=== PATIENT | female | born 1955 | race Caucasian/White ===

== ENCOUNTER 2017-09-08 21:40 | Inpatient (IN) ==
[2017-09-08] MEDS ORDERED: Cefepime HCl 2,000 MG in Water for inj. (sterile) 20 ML IVP ONE (22:07)
[2017-09-08] MEDS ORDERED: Levofloxacin 750 MG/150 ML 750 MG/150 ML BAG IVPB ONE (22:11)
[2017-09-08] MEDS ORDERED: Vancomycin (wt based) 1,000 MG VIAL IVPB ONE (22:11)
[2017-09-08] MEDS ORDERED: *HR* LORazepam 2 MG/ML VIAL IVP ONE ×2 (22:24→23:56)
[2017-09-08 22:25] LABS: Basophils % 0.2 %; Eosinophils # 0.1 K/mcL (0.0-0.6); Eosinophils % 0.5 %; Hematocrit 31.6 % (35.3-44.9); Hemoglobin 10.5 g/dL (11.5-15.4); Immature Granulocytes % 0.4 % (0-4); Lymphocytes # 1.3 K/mcL (0.6-4.6); Lymphocytes % 12.4 %; Mean Corpuscular HGB Conc 33.2 g/dL (31.6-35.5); Mean Corpuscular Hemoglobin 29.9 pg (28.0-33.3); Monocytes # 0.8 K/mcL (0.0-1.3); Monocytes % 7.2 %; Neutrophils # 8.4 K/mcL (1.6-8.9); Platelet Count 253 K/mcL (140-400); Red Blood Count 3.51 M/mcL (3.82-4.97); Red Cell Distribution Width 13.4 % (11.5-14.5); Segmented Neutrophils % 79.3 %
[2017-09-08 22:31] LABS: INR 1.1; Prothrombin Time 12.1 Seconds (9.4-12.1)
[2017-09-08 22:33] LABS: Activated Partial Thrombo Time 27.4 Seconds (26.0-36.0)
[2017-09-08 22:43] LABS: BUN/Creatinine Ratio 33 (6-26); Blood Urea Nitrogen 13 mg/dL (8-23); Calcium 8.7 mg/dL (8.6-10.3); Carbon Dioxide 26 mEq/L (23-29); Chloride 92 mEq/L (98-107); Glucose 129 mg/dL (70-105); Osmolality,Calculated 264 (280-300); Potassium 3.9 mEq/L (3.5-5.1); Sodium 126 mEq/L (136-145); eGFR For African Americans > 60 (> 60); eGFR For Non-African Americans > 60 (> 60)
[2017-09-08 22:44] LABS: Albumin 3.2 g/dL (3.5-5.7); Bilirubin,Direct 0.1 mg/dL (0.0-0.2); Bilirubin,Indirect 0.4 mg/dL (0.0-1.2); Bilirubin,Total 0.5 mg/dL (0.3-1.0); Globulin 3.3 g/dL (2.4-3.5); Total Protein 6.5 g/dL (6.4-8.9)
[2017-09-08 23:14] LABS: ABG Base Excess 1 mEq/L (-2 to 3); ABG HCO3 25 mEq/L (21-27); ABG Oxygen Saturation 96 % (95-98); ABG PCO2 38 mmHg (35-45); ABG PH 7.43 pH Units (7.32-7.45); ABG PO2 82 mmHg (85-104); ABG TCO2 26 mEq/L (20-26)
--- NOTE | 2017-09-08 23:14 | Emergency Department Note ---
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 She is currently getting chemotherapy and radiation. She sees oncology regularly. She recently had some tests done and they are still waiting for the results of those. Patient states she has been short of breath for about the last week and has had a worsening over the past few days. Today though she says she was having a real hard time breathing so they called the squad her oxygen saturations were at 80% . At this time he decided to start her on oxygen they gave her 4 L nasal cannula when she did bump up to 90%. Patient states she has had 7 heart time breathing otherwise having no complaints. She has no headaches, blurry vision, chest pain, lightheadedness, vision changes, neck pain, back pain, abdominal pain, pain with urination, change in bowel movements, pain or tingling going down the arms or legs or any generalized weakness. - Related Data Home Medications Medication Instructions Recorded Confirmed Albuterol Sulfate [Albuterol 2 puff IH Q4HR PRN 07/02/17 09/08/17 Inhaler] Aspirin [Ecotrin] 325 mg PO DAILY 07/02/17 09/08/17 Atorvastatin Calcium 80 mg PO HS 07/02/17 09/08/17 Escitalopram [Lexapro] 10 mg PO DAILY 07/02/17 09/08/17 Montelukast [Singulair] 10 mg PO DAILY 07/02/17 09/08/17 Zolpidem Tartrate 5 mg PO HS PRN 07/02/17 09/08/17 amLODIPine [Norvasc] 5 mg PO DAILY 07/02/17 09/08/17 Acetaminophen [Tylenol] 1,000 mg PO Q6HR 09/08/17 09/08/17 Guaifenesin [Robafen] 100 mg PO 09/08/17 Loratadine [Allergy Relief] 10 mg PO 09/08/17 Ondansetron [Zofran] 8 mg PO Q8HR 09/08/17 09/08/17 Potassium Chloride Elixir 40 meq GTUBE DAILY 09/08/17 09/08/17 [Potassium Chloride] Prochlorperazine Maleate 10 mg PO Q8HR 09/08/17 09/08/17 [Compazine] Previous Rx's Medication Instructions Recorded Fluticasone/Salmeterol [Advair Hfa 2 puff IH BID PRN #1 inh 09/08/17 45-21 Mcg Inhaler] Glycopyrrolate [Robinul] 1 mg PO BID #60 tablet 09/08/17 Zolpidem Tartrate [Ambien Cr] 12.5 mg PO HS PRN #30 tab.mphase 09/08/17 Allergies Allergy/AdvReac Type Severity Reaction Status Date / Time Penicillins Allergy Rash Verified 09/08/17 21:42 Sulfa (Sulfonamide Allergy Rash Verified 09/08/17 21:42 Antibiotics) Review of Systems: 10 point review of systems done and negative unless otherwise stated in history of present illness. All systems ED: reviewed and negative except as stated. Review of Systems: As Per HPI Past Medical History - Past Medical History Attestation: Yes The following information was validated with the patient. Medical history: Reports: cancer, CVA, hypertension Surgical history: Reports: other Psychiatric history: Reports: no psych history - Social History Smoking Status: Former smoker Smokeless Tobacco Status: No Alcohol use: Reports: none Drug use: Reports: none Physical Exam - General Limitations: no limitations General appearance: alert - Head Head exam: atraumatic, normocephalic, normal inspection - Eye Eye exam: Present: normal appearance, PERRL, EOMI - ENT ENT exam: normal exam, normal oropharynx, mucous membranes moist - Neck Neck exam: Present: normal inspection, full ROM, trachea midline - Chest Chest inspection: Present: normal inspection, symmetric chest wall rise - Respiratory Respiratory exam: Present: respiratory distress, wheezes, accessory muscle use - Expanded Respiratory Exam Location: rales: Left, Right, Upper, Lower - Cardiovascular Cardiovascular exam: Present: regular rate, normal rhythm, normal heart sounds - Abdominal Exam Abdominal exam: Present: soft, Non-Tender. Absent: tenderness, distention, guarding, rebound, rigidity - Extremities Exam Extremities exam: Present: normal inspection, full ROM. Absent: tenderness, pedal edema - Expanded Lower Extremity Exam Neurovascular/Tendon exam: Absent: motor deficit, sensory deficit, tendon deficit - Back Exam Back exam: Present: normal inspection, full ROM. Absent: tenderness - Neurological Exam Neurological exam: Present: alert, oriented X3 - Skin Skin exam: Present: warm, dry, intact, normal color Course Course Narrative: 62-year-old female presents to the emergency department complaining of shortness of breath. She has had a cancer history. She also has a risk for aspiration due to the tumors. Due to this. Start patient on broad-spectrum antibiotics for possible aspiration pneumonia. We will also do basic labs include a CBC, BMP, troponin. We will also get chest x-ray and a CT Angio of her chest as long as creatinine function is normal. Will start patient on BiPAP as she is in quite a bit respiratory distress this will help with her oxygenation saturations as well. Most likely disposition will be admission for further evaluation. Vital Signs Temperature 98.8 F 09/08/17 21:43 Pulse Rate 121 09/08/17 21:43 Respiratory Rate 34 09/08/17 21:43 Blood Pressure 149/84 09/08/17 21:43 O2 Sat by Pulse Oximetry 88 09/08/17 21:43 Temperature 98.8 F 09/09/17 02:07 Pulse Rate 102 09/09/17 02:07 Respiratory Rate 12 09/09/17 02:07 Blood Pressure 102/57 09/09/17 02:07 O2 Sat by Pulse Oximetry 95 09/09/17 02:07 Oxygen Delivery Oxygen Delivery Ventilator Procedures - Intubation Time out performed: Yes sedative: Ketamine Mg Given: 50 paralytic: Succinylcholine Mg Given: 50 Laryngoscope: fiber optic video scope ET Tube Size: 7 ET Tube Uncuffed: No Tube Secured Depth (cm): 20 Tube Secured Location: teeth Tube Placement Confirmation: visualized tube passing through cords, equal breath sounds bilaterally, no breath sounds over epigastrium, confirmation by capnometry Patient Tolerated Procedure: well, no complications Intubation Complications: none, difficult intubation (Patient has tumors of the soft palate as well as esophageal tumors.) Shortness of Breath/Dyspnea - [facility] Narrative Medical decision making narrative: 62-year-old female presented to the emergency department for shortness of breath as well as hypoxia. Sats were down to 80% via EMS. When patient presented here were no she was in respiratory distress we merely put her on BiPAP. Patient did respond well to this as she went up to 93-94% while on BiPAP patient was very anxious while on BiPAP. Give her 0.5 mg of Ativan twice through her IV. Patient does have a history of esophageal cancer as well as small palate tumors. Patient still is a full code. Patient is not currently getting radiation and chemotherapy as they are doing testing at this time but recently finish it up. She does see oncology here. We give patient triple DuoNeb treatment which did help with her breathing. All labs came back with no abnormalities. ABG was normal after being on BiPAP. All labs came BACK NORMAL THE CT ANGIOGRAM OF HER CHEST DUE TO POSSIBLY FOR PULMONARY AND WAS NOT DUE TO MALIGNANCY WELL ANY OTHER PULMONARY ETIOLOGY. CTA CAME BACK SHOWING POSSIBLE ASPIRATION PNEUMONIA IN THE LEFT LOWER LOBE. THERE WAS NO PE EVIDENT. DUE to this we started aspiration pneumonia treatment which included cefepime due to there being a penicillin allergy, Levaquin as well as vancomycin. Patient tolerated these well. She was stable at this time. After coming back from CT angios she did have a little bit more difficult time breathing as we had to take her off BiPAP. Back on BiPAP she did become hypoxic at around 84% while on the BiPAP and she was not tolerating it well. Due to this we felt that patient would need an abated. I spoke with the at bedside and he agreed that this probably was our best course of action. was tearful during this talk as he was worried he did not know what else he could do. I explained this is per the best course of treatment and and she would be going to the ICU and gave great care there. The intubation was done by myself under the supervision of Dr. Domínguez. I used medial laryngoscopy as this most likely was to be a very difficult airway due to tumors in the oropharynx. A 7.0 tube was used with a rigid stylet was successfully done as a passed through the cords. We used ketamine and succinylcholine during it. I then proceeded to use Precedex or post intubation sedation. After the first dose of ketamine wore off. Give a second 50 mg dose of ketamine. In order to last until her Precedex started working we gave patient Versed as well as Jose Smithey him to keep her sedated and paralyzed. Patient tolerated it well. Patient's blood pressure tolerated the whole procedure well she was then placed on mechanical ventilation and did well with that. Patient does have a port so we did not need to place any central lines. I spoke with the hospitalist Dr. Lozano agreed to admit the patient to the ICU. Patient was admitted in stable condition while on the mechanical ventilator. Chest CTA 09/08/17 23:09 IMPRESSION: There is motion degradation, which limits evaluation of the subsegmental pulmonary arteries, especially the lower lungs. No central or segmental pulmonary embolism is detected. Consolidation, mainly within left lower lobe, but with patchy consolidation also identified within left upper lobe. Given the location, correlate with clinical evidence of aspiration. Large bulky mural thickening involving the upper esophagus, compatible with the patient's known history of esophageal carcinoma. Evidence of free intraperitoneal air. Again, that was present dating back to August 26. Correlate with any history of intra-abdominal surgery. A perforated viscus remains a consideration. Cholelithiasis, incompletely evaluated. Findings were discussed with Billy Duran at 12:10 am on 09/08/2017. D/ / Adam Balderas MD / Adam Balderas MD Interpreting Provider: Adam Balderas MD Chest X-Ray 09/09/17 00:49 IMPRESSION: Appropriate endotracheal tube positioning. No pneumothorax. Decreased pneumoperitoneum. Persistent basilar airspace disease. D/ / Toni Mcintosh / Toni Mcintosh Interpreting Provider: Toni Mcintosh - Medical Records Medical records reviewed: Yes I reviewed the patient's medical records. - Lab Data Lab results reviewed: Yes I reviewed the patient's lab results. Result diagrams: 09/08/17 22:12 09/08/17 22:12 Lab Results 09/08/17 09/08/17 09/08/17 Range/Units 22:12 22:12 22:12 WBC 10.5 (4.3-11.1) K/mcL RBC 3.51 L (3.82-4.97) M/mcL Hgb 10.5 L (11.5-15.4) g/dL Hct 31.6 L (35.3-44.9) % MCV 90.0 (83.0-100.0) fL MCH 29.9 (28.0-33.3) pg MCHC 33.2 (31.6-35.5) g/dL RDW 13.4 (11.5-14.5) % Plt Count 253 (140-400) K/mcL MPV 10.0 (9.4-12.4) fL Immature Gran % 0.4 (0-4) % Seg Neutrophils % 79.3 % Lymphocytes % 12.4 % Monocytes % 7.2 % Eosinophils % 0.5 % Basophils % 0.2 % Neutrophils # 8.4 (1.6-8.9) K/mcL Lymphocytes # 1.3 (0.6-4.6) K/mcL Monocytes # 0.8 (0.0-1.3) K/mcL Eosinophils # 0.1 (0.0-0.6) K/mcL Basophils # 0.0 (0.0-0.2) K/mcL PT (9.4-12.1) Seconds INR APTT (26.0-36.0) Seconds ABG pH (7.32-7.45) pH Units ABG pCO2 (35-45) mmHg ABG pO2 (85-104) mmHg ABG HCO3 (21-27) mEq/L ABG Total CO2 (20-26) mEq/L ABG O2 Saturation (95-98) % ABG Base Excess (-2 to 3) mEq/L Sodium 126 L (136-145) mEq/L Potassium 3.9 (3.5-5.1) mEq/L Chloride 92 L (98-107) mEq/L Carbon Dioxide 26 (23-29) mEq/L BUN 13 (8-23) mg/dL Creatinine 0.39 L (0.60-1.20) mg/dL Est GFR ( Amer) > 60 (> 60) Est GFR (Non-Af Amer) > 60 (> 60) BUN/Creatinine Ratio 33 H (6-26) Glucose 129 H (70-105) mg/dL Calculated Osmolality 264 L (280-300) Lactic Acid (0.5-2.2) mmol/L Calcium 8.7 (8.6-10.3) mg/dL Total Bilirubin 0.5 (0.3-1.0) mg/dL Direct Bilirubin 0.1 (0.0-0.2) mg/dL Indirect Bilirubin 0.4 (0.0-1.2) mg/dL AST 46 H (13-39) Units/L ALT 45 (7-52) Units/L Alkaline Phosphatase 81 (34-104) Units/L Troponin I (< 0.04) ng/mL B-Natriuretic Peptide (Less than 100) pg/mL Serum Total Protein 6.5 (6.4-8.9) g/dL Albumin 3.2 L (3.5-5.7) g/dL Globulin 3.3 (2.4-3.5) g/dL Albumin/Globulin Ratio 1.0 L (1.1-2.2) 09/08/17 09/08/17 09/08/17 Range/Units 22:12 22:12 22:12 WBC (4.3-11.1) K/mcL RBC (3.82-4.97) M/mcL Hgb (11.5-15.4) g/dL Hct (35.3-44.9) % MCV (83.0-100.0) fL MCH (28.0-33.3) pg MCHC (31.6-35.5) g/dL RDW (11.5-14.5) % Plt Count (140-400) K/mcL MPV (9.4-12.4) fL Immature Gran % (0-4) % Seg Neutrophils % % Lymphocytes % % Monocytes % % Eosinophils % % Basophils % % Neutrophils # (1.6-8.9) K/mcL Lymphocytes # (0.6-4.6) K/mcL Monocytes # (0.0-1.3) K/mcL Eosinophils # (0.0-0.6) K/mcL Basophils # (0.0-0.2) K/mcL PT (9.4-12.1) Seconds INR APTT (26.0-36.0) Seconds ABG pH (7.32-7.45) pH Units ABG pCO2 (35-45) mmHg ABG pO2 (85-104) mmHg ABG HCO3 (21-27) mEq/L ABG Total CO2 (20-26) mEq/L ABG O2 Saturation (95-98) % ABG Base Excess (-2 to 3) mEq/L Sodium (136-145) mEq/L Potassium (3.5-5.1) mEq/L Chloride (98-107) mEq/L Carbon Dioxide (23-29) mEq/L BUN (8-23) mg/dL Creatinine (0.60-1.20) mg/dL Est GFR ( Amer) (> 60) Est GFR (Non-Af Amer) (> 60) BUN/Creatinine Ratio (6-26) Glucose (70-105) mg/dL Calculated Osmolality (280-300) Lactic Acid 1.4 (0.5-2.2) mmol/L Calcium (8.6-10.3) mg/dL Total Bilirubin (0.3-1.0) mg/dL Direct Bilirubin (0.0-0.2) mg/dL Indirect Bilirubin (0.0-1.2) mg/dL AST (13-39) Units/L ALT (7-52) Units/L Alkaline Phosphatase (34-104) Units/L Troponin I < 0.03 (< 0.04) ng/mL B-Natriuretic Peptide 198 H (Less than 100) pg/mL Serum Total Protein (6.4-8.9) g/dL Albumin (3.5-5.7) g/dL Globulin (2.4-3.5) g/dL Albumin/Globulin Ratio (1.1-2.2) 09/08/17 09/08/17 Range/Units 22:12 23:10 WBC (4.3-11.1) K/mcL RBC (3.82-4.97) M/mcL Hgb (11.5-15.4) g/dL Hct (35.3-44.9) % MCV (83.0-100.0) fL MCH (28.0-33.3) pg MCHC (31.6-35.5) g/dL RDW (11.5-14.5) % Plt Count (140-400) K/mcL MPV (9.4-12.4) fL Immature Gran % (0-4) % Seg Neutrophils % % Lymphocytes % % Monocytes % % Eosinophils % % Basophils % % Neutrophils # (1.6-8.9) K/mcL Lymphocytes # (0.6-4.6) K/mcL Monocytes # (0.0-1.3) K/mcL Eosinophils # (0.0-0.6) K/mcL Basophils # (0.0-0.2) K/mcL PT 12.1 (9.4-12.1) Seconds INR 1.1 APTT 27.4 (26.0-36.0) Seconds ABG pH 7.43 (7.32-7.45) pH Units ABG pCO2 38 (35-45) mmHg ABG pO2 82 L (85-104) mmHg ABG HCO3 25 (21-27) mEq/L ABG Total CO2 26 (20-26) mEq/L ABG O2 Saturation 96 (95-98) % ABG Base Excess 1 (-2 to 3) mEq/L Sodium (136-145) mEq/L Potassium (3.5-5.1) mEq/L Chloride (98-107) mEq/L Carbon Dioxide (23-29) mEq/L BUN (8-23) mg/dL Creatinine (0.60-1.20) mg/dL Est GFR ( Amer) (> 60) Est GFR (Non-Af Amer) (> 60) BUN/Creatinine Ratio (6-26) Glucose (70-105) mg/dL Calculated Osmolality (280-300) Lactic Acid (0.5-2.2) mmol/L Calcium (8.6-10.3) mg/dL Total Bilirubin (0.3-1.0) mg/dL Direct Bilirubin (0.0-0.2) mg/dL Indirect Bilirubin (0.0-1.2) mg/dL AST (13-39) Units/L ALT (7-52) Units/L Alkaline Phosphatase (34-104) Units/L Troponin I (< 0.04) ng/mL B-Natriuretic Peptide (Less than 100) pg/mL Serum Total Protein (6.4-8.9) g/dL Albumin (3.5-5.7) g/dL Globulin (2.4-3.5) g/dL Albumin/Globulin Ratio (1.1-2.2) - Radiology Data Radiology results reviewed: Yes I reviewed the patient's radiology results. - EKG Data EKG attestation: Yes I reviewed and interpreted this EKG. EKG results narrative: Patient's EKG was read by myself and the attending showing sinus tachycardia with heart rate 123, no acute changes including no ST elevation, T-wave abnormalities, heart strain or hypertrophy, or any heart blocks. There is no old EKG to compare with. Critical Care Time Critical Care Time: Yes Total Critical Care Time: 50 Attestation: Critical care performed: Time is exclusive of separately billable procedures. Time includes: direct patient care, patient reassessment, coordination of patient care, interpretation of data (laboratory data, radiology data, and respiratory data), review of patient's medical records, medical consultation and documentation of patient care. Procedures included in critical care time: Procedures excluded from critical care time: Endotracheal intubation Attestation Statement - Attestation Attestation: I, Anil Domínguez MD, personally evaluated this patient and discussed their management with the resident physician. I reviewed the resident's note and agree with the documented findings, medical decision making, and plan of care. 62-year-old female presents to the emergency department by ambulance with a complaint of respiratory distress. Patient states it started a few hours ago however reports that it started about a month ago or more and has been just getting gradually progressively worse but a lot worse this evening. Patient has known esophageal cancer and is unable to swallow her secretions. She has a G-tube. They have not noticed any fever. On examination patient is a well-developed cachectic female in moderate respiratory distress. She is alert and oriented. No cyanosis or diaphoresis. Breath sounds are equal bilaterally with coarse diffuse bilateral rales and rhonchi. Worse in the left base. Tachycardic and regular. Abdomen is soft and nontender. Bowel sounds present. No pedal edema. Labs reviewed. Chest x-ray shows increased left basilar infiltrate. CTA of the chest shows no obvious pulmonary embolism. Known esophageal tumor. Left lower lobe consolidation with patchy left upper lobe consolidation consistent with aspiration. Free intraperitoneal air which was present 2 weeks ago. Patient was placed on BiPAP with significant improvement initially. However after being in the emergency department for a while her condition began to deteriorate and she again developed increased respiratory distress and even on the BiPAP her oxygen saturations dropped into the 80s. Decision was made to intubate patient. This was discussed with patient and and they are agreeable. Patient was intubated by Dr. Duran on first attempt without difficulty. She received ketamine for sedation and succinylcholine. The hospitalist, Dr. Lozano, was consulted and accepted admission of the patient.
[2017-09-08] MEDS ORDERED: *HR* LORazepam 0.5 MG TABLET PO ONE (23:56)
[2017-09-09] MEDS ORDERED: Ketamine *HR* 500 MG/10 ML MDV ONE (00:33)
[2017-09-09] MEDS ORDERED: Ketamine *HR* 500 MG/10 ML MDV IVP ONE ×2 (00:53→00:58)
[2017-09-09] MEDS ORDERED: *HR* Succinylcholine 200 MG/10 ML VIAL IVP ONE (00:53)
[2017-09-09] MEDS ORDERED: Dexmedetomidine HCl 400 MCG/100 ML MLS IVC ONE (00:55)
--- NOTE | 2017-09-09 01:12 | Internal Med History&Physical ---
<Peter Dasilva - Last Filed: 09/09/17 01:18> Date of Encounter: 09/09/17 Time of Encounter: 01:08 Assessment and Plan (1) Respiratory failure Current visit: Yes Status: Acute Patient's respiratory failure developed over the course the past 8 hours. The patient was not doing well BiPAP and was electively intubated at that time. Patient is currently sedated. Qualifiers: Chronicity: acute Respiratory failure complication: hypoxia Qualified Code(s): J96.01 - Acute respiratory failure with hypoxia (2) Pneumonia Current visit: Yes Status: Acute This is likely aspirated in nature given the lack of inability to handle secretions associated with the esophageal occlusion associated with the esophageal cancer. The patient has primarily left lower lobe pneumonia versus consolidation as well as right sided as well. The patient was started on vancomycin and cefepime. The patient was subsequently intubated for respiratory failure. Patient will continue to receive IV antibiotics, broad-spectrum, in the ICU as well as IV fluids. Qualifiers: Pneumonia type: aspiration pneumonia Aspiration pneumonia type: unspecified Laterality: bilateral Lung location: unspecified part of lung Qualified Code(s): J69.0 - Pneumonitis due to inhalation of food and vomit (3) Hyponatremia Current visit: Yes Status: Acute (4) Esophageal cancer Current visit: No Status: Chronic Esophageal cancer likely associated with why patient is unable to handle secretions and therefore experiencing recurrent aspirate of episodes. Patient is currently seen oncology here at [facility] for further care and workup. 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 This was a redemonstration of the intra-abdominal free air from a CT scan performed on August 26, 2 weeks ago. The patient has been experiencing no worsening abdominal pain. This is likely associated with the G-tube that the patient has placed. We will continue to monitor the patient's abdomen for further complications associated with this. (7) COPD (chronic obstructive pulmonary disease) Current visit: No Status: Chronic Qualifiers: COPD type: unspecified COPD Qualified Code(s): J44.9 - Chronic obstructive pulmonary disease, unspecified Internal Medicine - H&P: HPI Chief complaint: Dyspnea Admitted From: Home Plans for Post Hospital Care: Home History of present illness: Ms. 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 The patient went to oncologist here at [facility] Doctor Gant, for their first initial visit today. The patient's stated that over the course of the past month the patient has had some concerning worsening dyspnea and difficulty in breathing along with increased secretions. The patient has esophageal cancer that has completely occluded the esophagus in the patient has not been able to handle secretions so the states that the patient has had numerous episodes where she is aspirated and experienced difficulty in breathing. The patient's stated that over the course of the past 8 hours the patient has progressively worsened with her dyspnea. EMS was called at that time. Upon EMS arrival the patient was noted to have O2 saturation in the 80s. After giving the patient 3 L nasal cannula the patient quickly jelly into the low 90s. Upon arrival to the emergency department the patient was started on BiPAP but remained tachypneic, and anxious with an O2 saturation ranging from 86-91%. The patient was using accessory muscles and was altered from her baseline according to the . It was at that time that the emergency room physician made the decision to electively intubate the patient to perforant further decompensation in the emergency department. The patient was intubated and placed on the ventilator. The was made aware and agrees. The patient was admitted to the ICU. Workup in the emergency department to include a CTA and chest x-ray of the chest demonstrated a left lower lobe consolidation consistent with possible aspirated of pneumonia as well as a right lobe consistent with aspiration pneumonia. The patient was started on vancomycin and cefepime. The patient was given fluids. The patient is currently sedated on the ventilator. Past Med Surg Social Fam HX - Past Medical History Source: old records reviewed, obtained from family, nursing notes reviewed Medical history: cancer, CVA, hypertension Psychiatric history: no psych history - Past Surgical History Surgical History: other - Social History Smoking Status: Former smoker Smokeless Tobacco Status: No Alcohol use: none Drug use: none Current living situation: Home, With Family Internal Medicine - H&P: Meds Albuterol Sulfate [Albuterol Inhaler] 2 puff IH Q4HR PRN 07/02/17 [History] Aspirin [Ecotrin] 325 mg PO DAILY 07/02/17 [History] Atorvastatin Calcium 80 mg PO HS 07/02/17 [History] Escitalopram [Lexapro] 10 mg PO DAILY 07/02/17 [History] Montelukast [Singulair] 10 mg PO DAILY 07/02/17 [History] Zolpidem Tartrate 5 mg PO HS PRN 07/02/17 [History] amLODIPine [Norvasc] 5 mg PO DAILY 07/02/17 [History] Acetaminophen [Tylenol] 1,000 mg PO Q6HR 09/08/17 [History] Fluticasone/Salmeterol [Advair Hfa 45-21 Mcg Inhaler] 2 puff IH BID PRN #1 inh 09/08/17 [Rx] Glycopyrrolate [Robinul] 1 mg PO BID #60 tablet 09/08/17 [Rx] Guaifenesin [Robafen] 100 mg PO 09/08/17 [History] Loratadine [Allergy Relief] 10 mg PO 09/08/17 [History] Ondansetron [Zofran] 8 mg PO Q8HR 09/08/17 [History] Potassium Chloride Elixir [Potassium Chloride] 40 meq GTUBE DAILY 09/08/17 [ History] Prochlorperazine Maleate [Compazine] 10 mg PO Q8HR 09/08/17 [History] Zolpidem Tartrate [Ambien Cr] 12.5 mg PO HS PRN #30 tab.mphase 09/08/17 [Rx] 3 Allergy/AdvReac Type Severity Reaction Status Date / Time Penicillins Allergy Rash Verified 09/08/17 21:42 Sulfa (Sulfonamide Allergy Rash Verified 09/08/17 21:42 Antibiotics) ROS unobtainable: due to endotracheal tube All Systems PM: A 10-system review of systems was performed and is negative for pertinent findings except as documented above in the HPI. - Constitutional Vitals: Temp Pulse Resp BP Pulse Ox 98.8 F 138 18 167/92 88 09/08/17 21:43 09/09/17 00:42 09/09/17 00:42 09/09/17 00:42 09/09/17 00:42 General appearance: Present: cachectic Exam: Patient is currently intubated and sedated. - Head Head exam: Present: atraumatic, normocephalic - Eye Eye exam: Present: PERRL, conjuntiva pink, sclera anicteric Pupils: Present: PERRL - Neck Neck exam general surgery: Present: supple, trachea midline. Absent: lymphadenopathy - Respiratory Respiratory exam: Present: rales, rhonchi - Cardiovascular Cardiovascular exam: Present: +S1, +S2, tachycardia. Absent: diastolic murmur, gallop, rubs, systolic murmur - GI/Abdominal GI/Abdominal exam: Present: normal bowel sounds, soft, no peritoneal signs. Absent: distended, tenderness Additional comments: Patient has G-tube in place - Extremities Exam Extremities exam: Present: warm, radial pulses palpable and symmetrical. Absent : calf tenderness, cyanotic, pedal edema - Neurological Exam Additional comments: Patient is currently sedated. Internal Med - H&P Results - Labs CBC & Chem 7: 09/08/17 22:12 09/08/17 22:12 Labs: Short CBC 09/08/17 Range/Units 22:12 WBC 10.5 (4.3-11.1) K/mcL Hgb 10.5 L (11.5-15.4) g/dL Hct 31.6 L (35.3-44.9) % Plt Count 253 (140-400) K/mcL Neutrophils # 8.4 (1.6-8.9) K/mcL BMP 09/08/17 22:12 Sodium 126 L Potassium 3.9 Chloride 92 L Carbon Dioxide 26 BUN 13 Creatinine 0.39 L Glucose 129 H Calcium 8.7 Cardiac Enzymes 09/08/17 Range/Units 22:12 Troponin I < 0.03 (< 0.04) ng/mL Liver Function 09/08/17 Range/Units 22:12 Total Bilirubin 0.5 (0.3-1.0) mg/dL Direct Bilirubin 0.1 (0.0-0.2) mg/dL AST 46 H (13-39) Units/L ALT 45 (7-52) Units/L Alkaline Phosphatase 81 (34-104) Units/L Albumin 3.2 L (3.5-5.7) g/dL - ABG Interpretation ABG results: 09/08/17 23:10 ABG pH 7.43 ABG pCO2 38 ABG pO2 82 L ABG HCO3 25 ABG Total CO2 26 ABG O2 Saturation 96 ABG Base Excess 1 - Impressions ITS Impressions Chest X-Ray 09/08/17 21:49 IMPRESSION: Increased infiltrate at the left lung base D/ / Dwayne Gann MD / Dwayne Gann MD Interpreting Provider: Dwayne Gann MD Chest CTA 09/08/17 23:09 IMPRESSION: There is motion degradation, which limits evaluation of the subsegmental pulmonary arteries, especially the lower lungs. No central or segmental pulmonary embolism is detected. Consolidation, mainly within left lower lobe, but with patchy consolidation also identified within left upper lobe. Given the location, correlate with clinical evidence of aspiration. Large bulky mural thickening involving the upper esophagus, compatible with the patient's known history of esophageal carcinoma. Evidence of free intraperitoneal air. Again, that was present dating back to August 26. Correlate with any history of intra-abdominal surgery. A perforated viscus remains a consideration. Cholelithiasis, incompletely evaluated. Findings were discussed with Billy Duran at 12:10 am on 09/08/2017. D/ / Adam Balderas MD / Adam Balderas MD Interpreting Provider: Adam Balderas MD - Attending Attestation I examined this patient and my medical decision-making was reviewed with the Resident Physician. I agree with the documented findings, disposition and treatment plan as described except to the extent set forth below. <Ailyn Malave - Last Filed: 09/09/17 05:39> Date of Encounter: 09/09/17 Internal Medicine - H&P: HPI History of present illness: Ms. Martinez is a 62 year old female All Systems PM: A 10-system review of systems was performed and is negative for pertinent findings except as documented above in the HPI. - Constitutional Vitals: Temp Pulse Resp BP Pulse Ox 98.8 F 87 18 99/60 99 09/09/17 04:02 09/09/17 05:00 09/09/17 05:00 09/09/17 05:00 09/09/17 05:00 Internal Med - H&P Results - Labs CBC & Chem 7: 09/09/17 03:15 09/09/17 03:15 Labs: Short CBC 09/09/17 Range/Units 03:15 WBC 8.6 (4.3-11.1) K/mcL Hgb 8.9 L D (11.5-15.4) g/dL Hct 27.1 L (35.3-44.9) % Plt Count 237 (140-400) K/mcL Neutrophils # 8.1 (1.6-8.9) K/mcL BMP 09/09/17 03:15 Sodium 124 L Potassium 4.4 Chloride 93 L Carbon Dioxide 24 BUN 14 Creatinine 0.46 L Glucose 207 H Calcium 8.2 L - Attending Attestation I have seen and examined pt independently, I have discussed with resident physician Dr Dasilva regarding the management plan. Agree with the documentation. Pt has esopageal cancer. Present with pneumonia and acute respiratory distress. Consider aspiration pneumonia. Pt was intubated in ER. Will cont abx for pneumonia and cont ventilation support. Critical care time 35 min for hx, chart review, physical, medical decision.
[2017-09-09] MEDS: Dexmedetomidine HCl 400 MCG/100 ML MLS IVC SCH ×2 (01:13→11:09)
[2017-09-09] MEDS: Vancomycin 1,000 MG in D5% in Water 250 ML IVPB SCH ×3 (01:15→23:58)
[2017-09-09] MEDS ORDERED: *HR* Rocuronium Bromide 50 MG/5 ML VIAL IVP ONE (01:23)
[2017-09-09] MEDS ORDERED: Dexamethasone 4 MG/ML VIAL IVP ONE (01:41)
[2017-09-09] MEDS ORDERED: D5% in Water 1,000 ML IVC PRN (01:47)
[2017-09-09] MEDS ORDERED: *HR* Dextrose 50 % in Water (Syg) 50 ML SYRINGE IVP PRN (01:47)
[2017-09-09] MEDS ORDERED: Dextrose Gel 15 GM/37.5 ML TUBE PO PRN ×2 (01:47)
[2017-09-09] MEDS: Ipratropium/Albuterol Neb 3 ML IH SCH ×6 (03:12→23:40)
[2017-09-09 03:29] LABS: Basophils % 0.1 %; Hematocrit 27.1 % (35.3-44.9); Immature Granulocytes % 0.4 % (0-4); Immature Platelets 3.7 % (1.1-6.1); Lymphocytes # 0.3 K/mcL (0.6-4.6); Lymphocytes % 3.7 %; Mean Corpuscular HGB Conc 32.8 g/dL (31.6-35.5); Mean Corpuscular Volume 91.2 fL (83.0-100.0); Mean Platelet Volume 9.5 fL (9.4-12.4); Monocytes # 0.2 K/mcL (0.0-1.3); Monocytes % 1.9 %; Platelet Count 237 K/mcL (140-400); Red Blood Count 2.97 M/mcL (3.82-4.97); Red Cell Distribution Width 13.2 % (11.5-14.5); Segmented Neutrophils % 93.9 %
[2017-09-09 03:32] LABS: Hemoglobin 8.9 g/dL (11.5-15.4); Neutrophils # 8.1 K/mcL (1.6-8.9)
[2017-09-09 03:45] LABS: BUN/Creatinine Ratio 30 (6-26); Blood Urea Nitrogen 14 mg/dL (8-23); Calcium 8.2 mg/dL (8.6-10.3); Carbon Dioxide 24 mEq/L (23-29); Chloride 93 mEq/L (98-107); Glucose 207 mg/dL (70-105); Osmolality,Calculated 265 (280-300); Potassium 4.4 mEq/L (3.5-5.1); Sodium 124 mEq/L (136-145); eGFR For African Americans > 60 (> 60); eGFR For Non-African Americans > 60 (> 60)
[2017-09-09 03:57] LABS: Platelet Estimate Normal (Normal)
[2017-09-09] MEDS: Insulin LISPRO 300 UNITS/3 ML VIAL SQ SCH ×3 (05:10→18:08)
[2017-09-09] MEDS ORDERED: MetroNIDAZOLE 500 MG/100 ML 500 MG/100 ML BAG IVPB SCH (08:00)
[2017-09-09] MEDS ORDERED: Cefepime HCl 2,000 MG in Water for inj. (sterile) 20 ML 20 ML IVP SCH (08:00)
[2017-09-09] MEDS ORDERED: Lacri-Lube 3.5 GM TUBE BOTH EYES PRN (08:16)
[2017-09-09] MEDS ORDERED: Aminoglycoside Consult 1 EACH MC ONE (08:17)
[2017-09-09] MEDS: Chlorhexidine Rinse 15 ML MOUTHWASH MM SCH ×2 (08:33→22:24)
--- NOTE | 2017-09-09 09:07 | Pulmonology Consult Note ---
<José Miguel Damian - Last Filed: 09/09/17 13:34> Date of Encounter: 09/09/17 Time of Encounter: 09:00 Assessment and Plan (1) Pneumonia Current Visit: Yes Status: Acute CTA demonstrated the presence of consolidation in the LLL. -Likely aspirated due to patient's inability to handle secretions associated with esophageal occlusion given her some history of esophageal cancer. -Patient was started on vancomycin and cefepime. -Started Unasyn today; discontinued cefepime. -Patient developed respiratory failure after CTA; was intubated. -Continue IV antibiotics and IV fluids. Qualifiers: Pneumonia type: aspiration pneumonia Aspiration pneumonia type: unspecified Laterality: bilateral Lung location: unspecified part of lung Qualified Code(s): J69.0 - Pneumonitis due to inhalation of food and vomit (2) Respiratory failure Current Visit: Yes Status: Acute Patient initially presented with respiratory distress. After patient was finished with CTA, O2 saturation drops to 84%. BiPAP did not improve; patient was intubated and placed on a ventilator. Qualifiers: Chronicity: acute Respiratory failure complication: hypoxia Qualified Code(s): J96.01 - Acute respiratory failure with hypoxia (3) Esophageal cancer Current Visit: Yes Status: Chronic Patient receiving chemoradiation; is currently being seen at [facility]. ENT consulted for recommendations. 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 -Redemonstration of the same findings from a CT scan performed on 08/26/17. -No worsening abdominal pain. -Possibly due to patient's G-tube. -Continue to monitor patient's abdomen for further palpitations. History of Present Illness Consult date: 09/09/17 Reason for consult: dyspnea, abnormal CXR/CT Chief complaint: Shortness of breath History of present illness: Mrs. 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 Patient reported being short of breath last week. EMS was called, patient's O2 saturation was 80 %. Was given 4 L of oxygen via nasal cannula; increase to 90%. Upon arrival to the emergency department, patient's pulse was 121, respiratory rate was 34/m , the pressure was elevated at 149/84. Chest x-ray and CTA were performed. Chest x-ray showed persistent basilar airspace disease. CTA demonstrated consolidation in the left lower lobe. Due to patient's known history of risk of aspiration due to tumors, patient was placed on broad-spectrum antibiotics for possible aspiration pneumonia. After patient came back from CTA, patient became hypoxic around 84% on BiPAP. Patient was intubated and placed on a ventilator. was made aware of this and agreed. Patient was placed on vancomycin and cefepime. Patient was seen and examined at bedside this morning. Currently intubated and asleep. Does not appear in any respiratory distress. Accompanied by at bedside. Past Med Surg Social Fam HX - Past Medical History Medical history: cancer, CVA, hypertension Psychiatric history: no psych history - Past Surgical History Surgical History: other - Social History Smoking Status: Former smoker Smokeless Tobacco Status: No Alcohol use: none Drug use: none Medications and Allergies Albuterol Sulfate [Albuterol Inhaler] 2 puff IH Q4HR PRN 07/02/17 [History] Aspirin [Ecotrin] 325 mg GTUBE DAILY PRN 07/02/17 [History] Atorvastatin Calcium 80 mg PO HS 07/02/17 [History] amLODIPine [Norvasc] 5 mg PO DAILY 07/02/17 [History] Acetaminophen [Tylenol] 1,000 mg PO Q6HR PRN 09/08/17 [History] Fluticasone/Salmeterol [Advair Hfa 45-21 Mcg Inhaler] 2 puff IH BID PRN #1 inh 09/08/17 [Rx] Guaifenesin [Robafen] 200 mg PO Q4H PRN 09/08/17 [History] Loratadine [Allergy Relief] 10 mg PO DAILY 09/08/17 [History] Ondansetron [Zofran] 8 mg PO Q8HR PRN 09/08/17 [History] Potassium Chloride Elixir [Potassium Chloride] 20 meq GTUBE DAILY 09/08/17 [ History] Prochlorperazine Maleate [Compazine] 10 mg PO Q8HR 09/08/17 [History] Escitalopram [Lexapro] 20 mg PO DAILY 09/09/17 [History] Glycopyrrolate [Robinul] 1 mg PO BID 09/09/17 [History] Zolpidem [Ambien] 10 mg PO HS PRN 09/09/17 [History] 3 Allergy/AdvReac Type Severity Reaction Status Date / Time Penicillins Allergy Rash Verified 09/09/17 13:50 Sulfa (Sulfonamide Allergy Rash Verified 09/09/17 13:50 Antibiotics) All Systems: A 10-system review of systems was performed and is negative for pertinent findings except as documented above in the HPI. - Constitutional Constitutional: as per HPI - Cardiovascular Cardiovascular: dyspnea, no leg edema - Gastrointestinal Gastrointestinal: no nausea Physical Examination Vital Signs: Vital Signs, Last 4 Hours Temp Pulse Resp BP Pulse Ox 09/09/17 08:00 87 18 91/56 100 09/09/17 07:52 89 09/09/17 07:35 18 98/59 100 09/09/17 07:00 96.9 F L 80 21 98/59 100 09/09/17 06:00 81 21 98/58 99 09/09/17 05:50 21 98/58 99 General appearance: no acute distress, asleep ENT: oropharynx dry Auscultation: bilateral: wheezes, rales, rhonchi Cardiovascular: regular rate and rhythm Extremities: pulses normal unable to assess due to mental status Ventilator Settings Ventilator Settings: Ventilator Settings, Last 8 Hours Ventilator Mode VC+ Ventilator Mode VC+ Ventilator Mode VC+ Ventilator Mode VC+ Ventilator Mode VC+ Ventilator Mode VC+ Ventilator Mode VC+ Ventilator Mode VC+ Ventilator Tidal Volume 400 Setting Ventilator Tidal Volume 400 Setting Ventilator Tidal Volume 400 Setting Ventilator Tidal Volume 400 Setting Ventilator Tidal Volume 400 Setting Ventilator Tidal Volume 400 Setting Ventilator Tidal Volume 400 Setting Ventilator Tidal Volume 400 Setting Ventilator Tidal Volume 400 Setting Ventilator Tidal Volume 400 Setting Ventilator Tidal Volume 400 Setting Ventilator Tidal Volume 400 Setting Ventilator Tidal Volume 400 Setting Ventilator Respiratory Rate 12 Setting Ventilator Respiratory Rate 12 Setting Ventilator Respiratory Rate 12 Setting Ventilator Respiratory Rate 12 Setting Ventilator Respiratory Rate 12 Setting Ventilator Respiratory Rate 12 Setting Ventilator Respiratory Rate 12 Setting Ventilator Respiratory Rate 12 Setting Ventilator Respiratory Rate 12 Setting Ventilator Respiratory Rate 12 Setting Ventilator Respiratory Rate 12 Setting Ventilator Respiratory Rate 12 Setting Ventilator Respiratory Rate 12 Setting Actual Respiratory Rate 16 Actual Respiratory Rate 16 Actual Respiratory Rate 16 Actual Respiratory Rate 16 Actual Respiratory Rate 21 Actual Respiratory Rate 21 Actual Respiratory Rate 21 Actual Respiratory Rate 21 Actual Respiratory Rate 15 Actual Respiratory Rate 21 Actual Respiratory Rate 20 Actual Respiratory Rate 20 Actual Respiratory Rate 23 Positive End Expiratory 5 Pressure Positive End Expiratory 5 Pressure Positive End Expiratory 5 Pressure Positive End Expiratory 5 Pressure Positive End Expiratory 5 Pressure Positive End Expiratory 5 Pressure Positive End Expiratory 5 Pressure Positive End Expiratory 5 Pressure Positive End Expiratory 5 Pressure Positive End Expiratory 5 Pressure Positive End Expiratory 5 Pressure Positive End Expiratory 5 Pressure Positive End Expiratory 5 Pressure Peak Inspiratory Airway 18 Pressure Peak Inspiratory Airway 18 Pressure Peak Inspiratory Airway 18 Pressure Peak Inspiratory Airway 18 Pressure Peak Inspiratory Airway 17 Pressure Peak Inspiratory Airway 17 Pressure Peak Inspiratory Airway 18 Pressure Peak Inspiratory Airway 22 Pressure Peak Inspiratory Airway 17 Pressure Results - Laboratory Findings CBC and BMP: 09/09/17 03:15 09/09/17 03:15 ABG ABG pH 7.43 pH Units (7.32-7.45) 09/08/17 23:10 ABG pCO2 38 mmHg (35-45) 09/08/17 23:10 ABG pO2 82 mmHg (85-104) L 09/08/17 23:10 ABG O2 Saturation 96 % (95-98) 09/08/17 23:10 PT/INR, D-dimer PT 12.1 Seconds (9.4-12.1) 09/08/17 22:12 Abnormal lab findings: Abnormal lab results RBC 2.97 M/mcL (3.82-4.97) L 09/09/17 03:15 Hgb 8.9 g/dL (11.5-15.4) L D 09/09/17 03:15 Hct 27.1 % (35.3-44.9) L 09/09/17 03:15 Lymphocytes # 0.3 K/mcL (0.6-4.6) L 09/09/17 03:15 ABG pO2 82 mmHg (85-104) L 09/08/17 23:10 Sodium 124 mEq/L (136-145) L 09/09/17 03:15 Chloride 93 mEq/L (98-107) L 09/09/17 03:15 Creatinine 0.46 mg/dL (0.60-1.20) L 09/09/17 03:15 BUN/Creatinine Ratio 30 (6-26) H 09/09/17 03:15 Glucose 207 mg/dL (70-105) H 09/09/17 03:15 POC Glucose 158 (58-89) H 09/09/17 05:07 Calculated Osmolality 265 (280-300) L 09/09/17 03:15 Calcium 8.2 mg/dL (8.6-10.3) L 09/09/17 03:15 AST 46 Units/L (13-39) H 09/08/17 22:12 B-Natriuretic Peptide 198 pg/mL (Less than 100) H 09/08/17 22:12 Albumin 3.2 g/dL (3.5-5.7) L 09/08/17 22:12 Albumin/Globulin Ratio 1.0 (1.1-2.2) L 09/08/17 22:12 - Microbiology Findings Microbiology Findings: Microbiology, Last 48 Hours 09/09/17 01:45 Sputum Culture - Final Sputum - Clinical Findings Intake & Output: Intake & Output 09/08/17 09/09/17 09/09/17 23:59 07:59 15:59 Intake Total 440 / 460 Output Total 500 / 500 Balance -60 / -40 Consult Discharge Plan - Plan Referrals: Marilee Nettles DO [Primary Care Provider] - <Jacki Ayon - Last Filed: 09/09/17 21:25> Date of Encounter: 09/09/17 All Systems: A 10-system review of systems was performed and is negative for pertinent findings except as documented above in the HPI. Physical Examination Vital Signs: Vital Signs, Last 4 Hours Pulse Resp BP Pulse Ox 09/09/17 18:00 98 24 71/47 98 09/09/17 17:06 24 100/90 98 09/09/17 17:00 104 24 100/90 98 09/09/17 16:00 92 25 89/50 100 09/09/17 15:43 25 96/59 100 Ventilator Settings Ventilator Settings: Ventilator Settings, Last 8 Hours Ventilator Mode VC+ Ventilator Mode VC+ Ventilator Mode VC+ Ventilator Mode VC+ Ventilator Mode VC+ Ventilator Mode VC+ Ventilator Mode VC+ Ventilator Mode VC+ Ventilator Mode VC+ Ventilator Mode VC+ Ventilator Mode VC+ Ventilator Tidal Volume 400 Setting Ventilator Tidal Volume 400 Setting Ventilator Tidal Volume 400 Setting Ventilator Tidal Volume 400 Setting Ventilator Tidal Volume 400 Setting Ventilator Tidal Volume 400 Setting Ventilator Tidal Volume 400 Setting Ventilator Tidal Volume 400 Setting Ventilator Tidal Volume 400 Setting Ventilator Tidal Volume 400 Setting Ventilator Tidal Volume 400 Setting Ventilator Respiratory Rate 12 Setting Ventilator Respiratory Rate 12 Setting Ventilator Respiratory Rate 12 Setting Ventilator Respiratory Rate 12 Setting Ventilator Respiratory Rate 12 Setting Ventilator Respiratory Rate 12 Setting Ventilator Respiratory Rate 12 Setting Ventilator Respiratory Rate 12 Setting Ventilator Respiratory Rate 12 Setting Ventilator Respiratory Rate 12 Setting Ventilator Respiratory Rate 12 Setting Actual Respiratory Rate 28 Actual Respiratory Rate 28 Actual Respiratory Rate 28 Actual Respiratory Rate 28 Actual Respiratory Rate 28 Actual Respiratory Rate 24 Actual Respiratory Rate 24 Actual Respiratory Rate 24 Actual Respiratory Rate 29 Actual Respiratory Rate 23 Actual Respiratory Rate 23 Positive End Expiratory 5 Pressure Positive End Expiratory 5 Pressure Positive End Expiratory 5 Pressure Positive End Expiratory 5 Pressure Positive End Expiratory 5 Pressure Positive End Expiratory 5 Pressure Positive End Expiratory 5 Pressure Positive End Expiratory 5 Pressure Positive End Expiratory 5 Pressure Positive End Expiratory 5 Pressure Positive End Expiratory 5 Pressure Peak Inspiratory Airway 11 Pressure Peak Inspiratory Airway 11 Pressure Peak Inspiratory Airway 11 Pressure Peak Inspiratory Airway 11 Pressure Peak Inspiratory Airway 11 Pressure Peak Inspiratory Airway 17 Pressure Peak Inspiratory Airway 17 Pressure Peak Inspiratory Airway 17 Pressure Peak Inspiratory Airway 13 Pressure Peak Inspiratory Airway 12 Pressure Peak Inspiratory Airway 12 Pressure Results - Laboratory Findings CBC and BMP: 09/09/17 03:15 09/09/17 03:15 ABG ABG pH 7.43 pH Units (7.32-7.45) 09/08/17 23:10 ABG pCO2 38 mmHg (35-45) 09/08/17 23:10 ABG pO2 82 mmHg (85-104) L 09/08/17 23:10 ABG O2 Saturation 96 % (95-98) 09/08/17 23:10 PT/INR, D-dimer PT 12.1 Seconds (9.4-12.1) 09/08/17 22:12 Abnormal lab findings: Abnormal lab results RBC 2.97 M/mcL (3.82-4.97) L 09/09/17 03:15 Hgb 8.9 g/dL (11.5-15.4) L D 09/09/17 03:15 Hct 27.1 % (35.3-44.9) L 09/09/17 03:15 Lymphocytes # 0.3 K/mcL (0.6-4.6) L 09/09/17 03:15 ABG pO2 82 mmHg (85-104) L 09/08/17 23:10 Sodium 124 mEq/L (136-145) L 09/09/17 03:15 Chloride 93 mEq/L (98-107) L 09/09/17 03:15 Creatinine 0.46 mg/dL (0.60-1.20) L 09/09/17 03:15 BUN/Creatinine Ratio 30 (6-26) H 09/09/17 03:15 Glucose 207 mg/dL (70-105) H 09/09/17 03:15 POC Glucose 116 (58-89) H 09/09/17 18:07 Calculated Osmolality 265 (280-300) L 09/09/17 03:15 Calcium 8.2 mg/dL (8.6-10.3) L 09/09/17 03:15 AST 46 Units/L (13-39) H 09/08/17 22:12 B-Natriuretic Peptide 198 pg/mL (Less than 100) H 09/08/17 22:12 Albumin 3.2 g/dL (3.5-5.7) L 09/08/17 22:12 Albumin/Globulin Ratio 1.0 (1.1-2.2) L 09/08/17 22:12 - Microbiology Findings Microbiology Findings: Microbiology, Last 48 Hours 09/09/17 01:45 Sputum Culture - Final Sputum - Clinical Findings Intake & Output: Intake & Output 09/09/17 09/09/17 09/09/17 07:59 15:59 23:59 Intake Total 440 / 460 430 / 430 100 / 100 Output Total 500 / 500 150 / 150 Balance -60 / -40 280 / 280 100 / 100 - Attending Attestation I examined this patient and my medical decision-making was reviewed with the Resident Physician. I agree with the documented findings, disposition and treatment plan as described except to the extent set forth below. Patient seen and examined. Labs, radiology, chart personally reviewed. 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 Pulmonary: Acceptable oxygenation and ventilation, however will need ENT and oncology opinion before extubation. Poor prognosis. Cardiovascular: stable GI: Nutrition per dietary and GI prophylaxis per routine Heme: DVT prophylaxis per routine ID: Continue antibiotics and plan to de-escalation Renal; urine out put and renal funtion reviewed Endorcine: blood glucose is monitored Lines: all lines checked and no evidence of infections Skin: skin care to prevent pressure ulcers per nursing routine care
[2017-09-09] MEDS: Ampicillin/Sulbactam 3,000 MG in 0.9 % Sodium Chloride Mini Bag 100 ML IVPB SCH ×3 (11:08→23:13)
[2017-09-09] MEDS: Lacri-Lube 3.5 GM TUBE BOTH EYES SCH ×4 (12:26→23:13)
[2017-09-09] MEDS ORDERED: *HR* Rocuronium Bromide 50 MG/5 ML VIAL IVC ONE (13:38)
--- NOTE | 2017-09-09 13:43 | Oncology Inp Consult Note ---
<New Robb S - Last Filed: 09/09/17 22:13> Date of Encounter: 09/09/17 - Data of Consult Requesting Physician: Fransico Hill MD Primary Care Provider: John Collazo - Consult Narrative History of present illness: Ms. Martinez is a 62 year old female Medications and Allergies Albuterol Sulfate [Albuterol Inhaler] 2 puff IH Q4HR PRN 07/02/17 [History] Aspirin [Ecotrin] 325 mg GTUBE DAILY PRN 07/02/17 [History] Atorvastatin Calcium 80 mg PO HS 07/02/17 [History] amLODIPine [Norvasc] 5 mg PO DAILY 07/02/17 [History] Acetaminophen [Tylenol] 1,000 mg PO Q6HR PRN 09/08/17 [History] Fluticasone/Salmeterol [Advair Hfa 45-21 Mcg Inhaler] 2 puff IH BID PRN #1 inh 09/08/17 [Rx] Guaifenesin [Robafen] 200 mg PO Q4H PRN 09/08/17 [History] Loratadine [Allergy Relief] 10 mg PO DAILY 09/08/17 [History] Ondansetron [Zofran] 8 mg PO Q8HR PRN 09/08/17 [History] Potassium Chloride Elixir [Potassium Chloride] 20 meq GTUBE DAILY 09/08/17 [ History] Prochlorperazine Maleate [Compazine] 10 mg PO Q8HR 09/08/17 [History] Escitalopram [Lexapro] 20 mg PO DAILY 09/09/17 [History] Glycopyrrolate [Robinul] 1 mg PO BID 09/09/17 [History] Zolpidem [Ambien] 10 mg PO HS PRN 09/09/17 [History] 3 Allergy/AdvReac Type Severity Reaction Status Date / Time Penicillins Allergy Rash Verified 09/09/17 13:50 Sulfa (Sulfonamide Allergy Rash Verified 09/09/17 13:50 Antibiotics) Oncology - Exam - Constitutional Vitals: Temp Pulse Resp BP Pulse Ox 97.9 F 92 22 90/56 99 09/09/17 20:43 09/09/17 21:00 09/09/17 21:00 09/09/17 21:00 09/09/17 21:00 Oncology - Results Labs: Short CBC 09/09/17 Range/Units 03:15 WBC 8.6 (4.3-11.1) K/mcL Hgb 8.9 L D (11.5-15.4) g/dL Hct 27.1 L (35.3-44.9) % Plt Count 237 (140-400) K/mcL Neutrophils # 8.1 (1.6-8.9) K/mcL BMP 09/09/17 03:15 Sodium 124 L Potassium 4.4 Chloride 93 L Carbon Dioxide 24 BUN 14 Creatinine 0.46 L Glucose 207 H Calcium 8.2 L Consult Discharge Plan - Plan Referrals: Marilee Nettles DO [Primary Care Provider] - - Attending Attestation I have seen and examined Ms. Martinez and agree with Ms. Pitts's assessment. Ms. 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 She previously received induction chemotherapy with Carboplatin, Paclitaxel and Cetuximab. She is currently intubated and minimally sedated secondary to aspiration pneumonia. There is concern regarding airway protection and ENT to evaluate. She is responding verbally to commands and is no acute distress. Continue with supportive measures and will consider chemoradiotherapy once current condition improves as an outpatient. <Agnieszka Pitts - Last Filed: 09/10/17 11:06> Date of Encounter: 09/09/17 Time of Encounter: 13:43 Assessment and Plan (1) Nasopharyngeal cancer Status: Chronic Assessment and plan: 1.Soft palate/nasopharyngeal squamous cell carcinoma as well as a simultaneous cervical esophagus squamous cell carcinoma. Ms. Martinez is currently intubated and under minimal sedation. ENT will likely evaluate patient in the morning to assess airway concerns with extubation given patients history, no plans for extubation at this time. Aspiration pneumonia, likely secondary to patients inability to properly rid of secretions secondary to malignancy Plan to continue to monitor patient, she will continue to receive supportive treatment/measures. Oncology will continue with plan to discuss patient in tumor board and will consider concurrent chemoradiation on outpatient basis one acute issues resolved. Please refer to Dr. Robb's attestation below for further details. - Data of Consult Patient: known to practice within the last 3 years Consult date: 09/09/17 Requesting Physician: Fransico Hill MD Primary Care Provider: John Collazo - Consult Narrative Reason for consult: Squamous cell carcinoma of the soft palate/nasopharynx and cervical esophag History of present illness: Ms. Martinez is a 62 year old female with a past medical history significant for HTN, CVA, Syncope and COPD. She presented to the ER last evening for worsening dyspnea. O2 sat upon EMS arrival was noted to be in the 80s. She was placed on BiPAP in the ER and remained anxious/tachypneic and the decision was made to intubate the patient prior to further decompensation. She was intubated , placed on the ventilator and transferred to ICU. CTA and CXR show left lower lobe and right lobe consolidation consistent with possible aspiration pneumonia. The patient was started on vancomycin and cefepime. Ms. Martinez is a patient of the [facility] and a patient of Dr. Gant and Dr. Robb. 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 Ms. Martinez initially presented with a syncopal episode while visiting her daughter in [place]. She had a PEG placement and underwent neoadjuvant chemotherapy with cetuximab, carboplatin, and taxol x3 weekly cycles at [facility]. She had lost about 20 pounds and is now gaining weight with the use of her PEG tube. She developed a pustular rash on the scalp from Cetuximab for which she is using topical Clindamycin. Physician notes from the [facility] as well as the patient feel that she has clinically responded to treatment. Re-staging scans were ordered by Dr. Gant but not yet completed. At the time of her visit yesterday, she reported that her breathing was stable, she continued to have chronic noisy breathing and difficulty swallowing secretions, her breathing progressed following her appointment which led to her presentation to ER. At her follow up she was given the option to have additional systemic therapy as well as starting chemoradiation. Her case was planned to be discussed in tumor board and she was then planned to see Dr. Robb/Dr. Gant in clinic for follow-up and CT simulation pending tumor board discussion and restaging scans. Past Med Surg Social Fam HX - Past Medical History Medical history: cancer, CVA, hypertension Psychiatric history: no psych history - Past Surgical History Surgical History: other - Social History Smoking Status: Former smoker Smokeless Tobacco Status: No Alcohol use: none Drug use: none ROS unobtainable: due to endotracheal tube Oncology - Exam - Constitutional Vitals: Temp Pulse Resp BP Pulse Ox 96.2 F L 97 25 79/47 100 09/09/17 12:25 09/09/17 12:00 09/09/17 12:00 09/09/17 12:00 09/09/17 12:00 General appearance: no acute distress - Head Head exam: Present: atraumatic - Respiratory Respiratory exam: Present: CTAB. Absent: respiratory distress - Cardiovascular Cardiovascular exam: Present: RRR, +S1, +S2 - GI/Abdominal GI/Abdominal exam: Present: normal bowel sounds, soft. Absent: tenderness - Extremities Exam Extremities exam: Absent: pedal edema - Expanded Lower Extremity Exam Lower Leg exam: Absent: swelling - Neurological Exam Additional comments: intubated and minimally sedated, responds to voice - Skin Skin exam: Present: pallor, warm Oncology - Results Labs: Short CBC 09/09/17 Range/Units 03:15 WBC 8.6 (4.3-11.1) K/mcL Hgb 8.9 L D (11.5-15.4) g/dL Hct 27.1 L (35.3-44.9) % Plt Count 237 (140-400) K/mcL Neutrophils # 8.1 (1.6-8.9) K/mcL BMP 09/09/17 03:15 Sodium 124 L Potassium 4.4 Chloride 93 L Carbon Dioxide 24 BUN 14 Creatinine 0.46 L Glucose 207 H Calcium 8.2 L
--- NOTE | 2017-09-09 15:17 | Palliative - Consult Note ---
Date of Encounter: 09/09/17 Time of Encounter: 13:00 - Assessment and Plan (1) Dyspnea Current Visit: Yes Status: Acute Assessment and plan: Remains on vent with IV antibiotics/nebs for pneumonia treatment. Monitor Qualifiers: Dyspnea type: unspecified Qualified Code(s): R06.00 - Dyspnea, unspecified (2) Counseling regarding advanced care planning and goals of care Current Visit: Yes Status: Acute Assessment and plan: Discussed goals of care at length with Donald at bedside. He was very emotional during much of conversation. He is hopeful that she will improve, but understands there is a possibility that she may not do well. States he was "distraught" at seeing her struggling so much in ER prior to intubation. Believes she would not want assisted vent support. Advanced directives were completed last month at [facility] and will bring copy of these in tonight. Code status discussed at length - he acknowledged the information, but no changes made currently. He is hoping that she will be able to come off vent and have this conversation. He understands that she may not, and states that he will be discussing this with the patient's children. They have 2 children - one in [place] and other in [place]. They had no home serviced prior to arrival - had [facility] briefly in past after PEG, but was discharged. He does have suction machine at home with supplies, as she is unable to tolerate her secretions. Provided emotional support - will f/u in am. 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 Martinez is a 62 year old female with a past medical history significant for HTN, CVA, Syncope and COPD. She has esophageal cancer, and also a soft palate tumor. PEG was placed in [place]. She was orginially diagnosed in [place] while visiting her daughter. She had received 3 rounds of chemotherapy at the [facility] [place], and recently transferred her care to [place]. She met with Dr. Gant for her first visit yesterday, and was scheduled to see Dr. Robb as well soon. at bedside states that she had increasing shortness of breath soon after arriving home, and this progressed throughout the evening. Against her wisher, he called the squad and she was hypoxic upon their arrival. She failed bipap in the ER and decision was made to intubate. She is being treated for pneumonia and CXR demonstrated a left infiltrate and started on IV antibiotics. Upon my visit, she remains intubated and lightly sedated. She can shake head Yes/No and follow simple commands, but falls back to sleep easily. Denies any pain. Donald at bedside. CC: Fransico Hill MD Past Med Surg Social Fam HX - Past Medical History Medical history: cancer, CVA, hypertension Psychiatric history: no psych history - Past Surgical History Surgical History: other - Social History Smoking Status: Former smoker Smokeless Tobacco Status: No Alcohol use: none Drug use: none Medications and Allergies Albuterol Sulfate [Albuterol Inhaler] 2 puff IH Q4HR PRN 07/02/17 [History] Aspirin [Ecotrin] 325 mg GTUBE DAILY PRN 07/02/17 [History] Atorvastatin Calcium 80 mg PO HS 07/02/17 [History] amLODIPine [Norvasc] 5 mg PO DAILY 07/02/17 [History] Acetaminophen [Tylenol] 1,000 mg PO Q6HR PRN 09/08/17 [History] Fluticasone/Salmeterol [Advair Hfa 45-21 Mcg Inhaler] 2 puff IH BID PRN #1 inh 09/08/17 [Rx] Guaifenesin [Robafen] 200 mg PO Q4H PRN 09/08/17 [History] Loratadine [Allergy Relief] 10 mg PO DAILY 09/08/17 [History] Ondansetron [Zofran] 8 mg PO Q8HR PRN 09/08/17 [History] Potassium Chloride Elixir [Potassium Chloride] 20 meq GTUBE DAILY 09/08/17 [ History] Prochlorperazine Maleate [Compazine] 10 mg PO Q8HR 09/08/17 [History] Escitalopram [Lexapro] 20 mg PO DAILY 09/09/17 [History] Glycopyrrolate [Robinul] 1 mg PO BID 09/09/17 [History] Zolpidem [Ambien] 10 mg PO HS PRN 09/09/17 [History] 3 Allergy/AdvReac Type Severity Reaction Status Date / Time Penicillins Allergy Rash Verified 09/09/17 13:50 Sulfa (Sulfonamide Allergy Rash Verified 09/09/17 13:50 Antibiotics) ROS unobtainable: due to endotracheal tube, due to mental status Palliative Care-Exam - Constitutional Vitals: Temp Pulse Resp BP Pulse Ox 96.2 F L 87 24 93/55 100 09/09/17 12:25 09/09/17 15:00 09/09/17 15:00 09/09/17 15:00 09/09/17 15:00 General appearance: Present: no acute distress - Head Head Exam: Present: normal inspection, normocephalic - Respiratory Respiratory exam: Present: decreased breath sounds, CTAB Additional comments: Breath sounds coarse throughout - GI/Abdominal Exam GI/Abdominal exam: Present: distended, soft additional comments: PEG intact with feeding - Catheter Type: Urethral ([place]) - Extremities Exam Extremities exam: Present: normal capillary refill, normal inspection - Neurological Exam Neurological exam: Present: alert Additional comments: Follows simple commands. Sedated on Vent - Skin Skin exam: Present: dry, pallor, warm Internal Medicine - CN: Reslt - Labs CBC & Chem 7: 09/09/17 03:15 09/09/17 03:15 Labs: Short CBC 09/09/17 Range/Units 03:15 WBC 8.6 (4.3-11.1) K/mcL Hgb 8.9 L D (11.5-15.4) g/dL Hct 27.1 L (35.3-44.9) % Plt Count 237 (140-400) K/mcL Neutrophils # 8.1 (1.6-8.9) K/mcL BMP 09/09/17 03:15 Sodium 124 L Potassium 4.4 Chloride 93 L Carbon Dioxide 24 BUN 14 Creatinine 0.46 L Glucose 207 H Calcium 8.2 L - ABG Interpretation ABG results: ABG ABG pH 7.43 pH Units (7.32-7.45) 09/08/17 23:10 ABG pCO2 38 mmHg (35-45) 09/08/17 23:10 ABG pO2 82 mmHg (85-104) L 09/08/17 23:10 ABG O2 Saturation 96 % (95-98) 09/08/17 23:10 PT/INR, D-dimer PT 12.1 Seconds (9.4-12.1) 09/08/17 22:12 Consult Discharge Plan - Plan Referrals: Marilee Nettles DO [Primary Care Provider] - Palliative Quality Palliative Quality: Screen for Code Status: Yes, Screen for Goals of Care: Yes, Screen for Pain: Yes, If Pain Regimen Started, Initiate Bowel Regimen: Yes, Screen for Nausea/Vomitting: Yes
[2017-09-09] MEDS ORDERED: FentaNYL (PF) 1,000 MCG in 0.9 % Sodium Chloride 80 ML IVC PRN (16:04)
[2017-09-09] MEDS ORDERED: *HR* Heparin 5,000 UNIT/ML VIAL IVP PRN ×2 (17:22)
[2017-09-09] MEDS ORDERED: 0.9 % Sodium Chloride 1,000 ML IVC ONE (18:49)
[2017-09-09] MEDS ORDERED: 0.9 % Sodium Chloride 1,000 ML ONE (18:52)
[2017-09-09] MEDS ORDERED: Heparin 25,000 UNIT/500 ML D5W 25,000 UNIT/500 ML BAG IVC SCH (20:30)
[2017-09-10] MEDS ORDERED: Vancomycin 750 MG in D5% in Water 250 ML IVPB SCH (02:00)
[2017-09-10] MEDS: Insulin LISPRO 300 UNITS/3 ML VIAL SQ SCH ×4 (02:46→22:23)
[2017-09-10] MEDS: Lacri-Lube 3.5 GM TUBE BOTH EYES SCH ×4 (02:47→16:54)
[2017-09-10] MEDS: Dexmedetomidine HCl 400 MCG/100 ML MLS IVC SCH (02:48)
[2017-09-10 03:06] LABS: Basophils % 0.1 %; Hematocrit 25.9 % (35.3-44.9); Immature Granulocytes % 0.2 % (0-4); Lymphocytes # 0.7 K/mcL (0.6-4.6); Mean Corpuscular HGB Conc 33.2 g/dL (31.6-35.5); Mean Corpuscular Volume 90.2 fL (83.0-100.0); Mean Platelet Volume 9.2 fL (9.4-12.4); Monocytes # 0.7 K/mcL (0.0-1.3); Platelet Count 219 K/mcL (140-400); Red Blood Count 2.87 M/mcL (3.82-4.97); Red Cell Distribution Width 13.4 % (11.5-14.5); Segmented Neutrophils % 89.7 %
[2017-09-10 03:14] LABS: Neutrophils # 11.9 K/mcL (1.6-8.9)
[2017-09-10 03:15] LABS: Hemoglobin 8.6 g/dL (11.5-15.4)
[2017-09-10 03:21] LABS: VBG Ionized Calcium 1.14 mmol/L (1.15-1.35); VBG PH 7.39 pH Units (7.32-7.42)
[2017-09-10 03:22] LABS: Creatinine,Urine 97 mg/dL; Sodium, Urine < 10.0 mEq/L
[2017-09-10 03:28] LABS: BUN/Creatinine Ratio 33 (6-26); Blood Urea Nitrogen 14 mg/dL (8-23); Calcium 8.5 mg/dL (8.6-10.3); Carbon Dioxide 25 mEq/L (23-29); Chloride 98 mEq/L (98-107); Glucose 185 mg/dL (70-105); Osmolality,Calculated 273 (280-300); Potassium 4.1 mEq/L (3.5-5.1); Sodium 129 mEq/L (136-145); eGFR For African Americans > 60 (> 60); eGFR For Non-African Americans > 60 (> 60)
[2017-09-10 03:44] LABS: Osmolality,Urine 638 mOsm/kg (300-1090)
[2017-09-10] MEDS: Ipratropium/Albuterol Neb 3 ML IH SCH ×6 (04:00→23:25)
[2017-09-10 04:55] LABS: Magnesium 1.9 mg/dL (1.6-2.6)
[2017-09-10] MEDS: Ampicillin/Sulbactam 3,000 MG in 0.9 % Sodium Chloride Mini Bag 100 ML IVPB SCH ×3 (05:29→17:20)
[2017-09-10] MEDS ORDERED: *HR* Enoxaparin 40 MG/0.4 ML SYRINGE SQ SCH (06:00)
[2017-09-10] MEDS: Chlorhexidine Rinse 15 ML MOUTHWASH MM SCH (09:34)
--- NOTE | 2017-09-10 09:52 | Pulmonology Progress Note ---
<José Miguel Damian - Last Filed: 09/10/17 10:28> Date of Encounter: 09/10/17 Time of Encounter: 09:45 Assessment and Plan (1) Pneumonia Current Visit: Yes Status: Acute CTA demonstrated the presence of consolidation in the LLL. -Likely aspirated due to patient's inability to handle secretions associated with esophageal occlusion given her some history of esophageal cancer. -Patient was started on vancomycin and cefepime. -Started Unasyn today; discontinued cefepime. -Patient developed respiratory failure after CTA; was intubated. -Blood cultures are negative. -Continue IV antibiotics and IV fluids. -Per ENT, patient is okay to be extubated today. -Patient will be transferred out of ICU. Qualifiers: Pneumonia type: aspiration pneumonia Aspiration pneumonia type: unspecified Laterality: bilateral Lung location: unspecified part of lung Qualified Code(s): J69.0 - Pneumonitis due to inhalation of food and vomit (2) Respiratory failure Current Visit: Yes Status: Acute -Patient initially presented with respiratory distress. -After patient was finished with CTA, O2 saturation drops to 84%. -BiPAP did not improve; patient was intubated and placed on a ventilator. -Will be extubated today. Qualifiers: Chronicity: acute Respiratory failure complication: hypoxia Qualified Code(s): J96.01 - Acute respiratory failure with hypoxia (3) Esophageal cancer Current Visit: Yes Status: Chronic Patient receiving chemoradiation; is currently being seen at [facility]. 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 -Redemonstration of the same findings from a CT scan performed on 08/26/17. -No worsening abdominal pain. -Possibly due to patient's G-tube. -Continue to monitor patient's abdomen for further palpitations. Subjective Interval history: Patient was seen and examined this morning. Currently intubated. Does not appear in any distress right now. Per ENT, patient is okay to extubate today. Patient will be transferred out of ICU; doan catheter will be removed. Objective PUL Vital signs: Last Vital Signs Temp 97.5 F L 09/10/17 05:16 Pulse 109 09/10/17 09:00 Resp 22 09/10/17 09:03 BP 96/61 09/10/17 09:00 Pulse Ox 100 09/10/17 09:00 General appearance: no acute distress Eyes: nonicteric ENT: oropharynx dry Auscultation: bilateral: diminished breath sounds Cardiovascular: other (Patient is tachycardic.) Integumentary: normal Ventilator Settings Ventilator Settings: Ventilator Settings, Last 8 Hours Ventilator Mode VC+ Ventilator Mode VC+ Ventilator Mode VC+ Ventilator Mode VC+ Ventilator Mode VC+ Ventilator Mode VC+ Ventilator Mode VC+ Ventilator Mode VC+ Ventilator Mode VC+ Ventilator Tidal Volume 400 Setting Ventilator Tidal Volume 400 Setting Ventilator Tidal Volume 400 Setting Ventilator Tidal Volume 400 Setting Ventilator Tidal Volume 400 Setting Ventilator Tidal Volume 400 Setting Ventilator Tidal Volume 400 Setting Ventilator Tidal Volume 400 Setting Ventilator Tidal Volume 400 Setting Ventilator Respiratory Rate 12 Setting Ventilator Respiratory Rate 12 Setting Ventilator Respiratory Rate 12 Setting Ventilator Respiratory Rate 12 Setting Ventilator Respiratory Rate 12 Setting Ventilator Respiratory Rate 12 Setting Ventilator Respiratory Rate 12 Setting Ventilator Respiratory Rate 12 Setting Ventilator Respiratory Rate 12 Setting Actual Respiratory Rate 14 Actual Respiratory Rate 14 Actual Respiratory Rate 21 Actual Respiratory Rate 21 Actual Respiratory Rate 21 Actual Respiratory Rate 18 Actual Respiratory Rate 21 Actual Respiratory Rate 18 Actual Respiratory Rate 21 Positive End Expiratory 5 Pressure Positive End Expiratory 5 Pressure Positive End Expiratory 5 Pressure Positive End Expiratory 5 Pressure Positive End Expiratory 5 Pressure Positive End Expiratory 5 Pressure Positive End Expiratory 5 Pressure Positive End Expiratory 5 Pressure Positive End Expiratory 5 Pressure Peak Inspiratory Airway 16 Pressure Peak Inspiratory Airway 16 Pressure Peak Inspiratory Airway 16 Pressure Peak Inspiratory Airway 14 Pressure Peak Inspiratory Airway 14 Pressure Peak Inspiratory Airway 10 Pressure Peak Inspiratory Airway 12 Pressure Peak Inspiratory Airway 12 Pressure Peak Inspiratory Airway 12 Pressure Results - Laboratory Findings CBC and BMP: 09/10/17 03:00 09/10/17 03:00 ABG ABG pH 7.43 pH Units (7.32-7.45) 09/08/17 23:10 ABG pCO2 38 mmHg (35-45) 09/08/17 23:10 ABG pO2 82 mmHg (85-104) L 09/08/17 23:10 ABG O2 Saturation 96 % (95-98) 09/08/17 23:10 PT/INR, D-dimer PT 12.1 Seconds (9.4-12.1) 09/08/17 22:12 Abnormal lab findings: Abnormal lab results WBC 13.3 K/mcL (4.3-11.1) H D 09/10/17 03:00 RBC 2.87 M/mcL (3.82-4.97) L 09/10/17 03:00 Hgb 8.6 g/dL (11.5-15.4) L 09/10/17 03:00 Hct 25.9 % (35.3-44.9) L 09/10/17 03:00 MPV 9.2 fL (9.4-12.4) L 09/10/17 03:00 Neutrophils # 11.9 K/mcL (1.6-8.9) H 09/10/17 03:00 ABG pO2 82 mmHg (85-104) L 09/08/17 23:10 Sodium 129 mEq/L (136-145) L 09/10/17 03:00 Creatinine 0.42 mg/dL (0.60-1.20) L 09/10/17 03:00 BUN/Creatinine Ratio 33 (6-26) H 09/10/17 03:00 Glucose 185 mg/dL (70-105) H 09/10/17 03:00 POC Glucose 214 (58-89) H 09/10/17 00:17 Serum Osmolality 275 mOsm/kg (280-300) L 09/10/17 03:00 Calculated Osmolality 273 (280-300) L 09/10/17 03:00 Calcium 8.5 mg/dL (8.6-10.3) L 09/10/17 03:00 Venous Ioniz Calcium 1.14 mmol/L (1.15-1.35) L 09/10/17 03:15 AST 46 Units/L (13-39) H 09/08/17 22:12 B-Natriuretic Peptide 198 pg/mL (Less than 100) H 09/08/17 22:12 Albumin 3.2 g/dL (3.5-5.7) L 09/08/17 22:12 Albumin/Globulin Ratio 1.0 (1.1-2.2) L 09/08/17 22:12 - Microbiology Findings Microbiology Findings: Microbiology, Last 48 Hours 09/09/17 01:45 Sputum Culture - Final Sputum - Clinical Findings Intake & Output: Intake & Output 09/09/17 09/10/17 09/10/17 23:59 07:59 15:59 Intake Total 200 / 200 1036 / 1036 100 / 100 Output Total 125 / 125 200 / 200 Balance 75 / 75 836 / 836 100 / 100 Weight 55 kg Consult Discharge Plan - Plan Referrals: Marilee Nettles DO [Primary Care Provider] - <JenniferMarco A olsenjama Willson - Last Filed: 09/10/17 14:19> Date of Encounter: 09/10/17 Objective PUL Vital signs: Last Vital Signs Temp 97.3 F L 09/10/17 12:38 Pulse 109 09/10/17 11:16 Resp 22 09/10/17 11:00 BP 99/53 09/10/17 11:00 Pulse Ox 100 09/10/17 11:00 Ventilator Settings Ventilator Settings: Ventilator Settings, Last 8 Hours Ventilator Mode VC+ Ventilator Mode VC+ Ventilator Tidal Volume 400 Setting Ventilator Tidal Volume 400 Setting Ventilator Respiratory Rate 12 Setting Ventilator Respiratory Rate 12 Setting Actual Respiratory Rate 14 Actual Respiratory Rate 14 Positive End Expiratory 5 Pressure Positive End Expiratory 5 Pressure Peak Inspiratory Airway 16 Pressure Peak Inspiratory Airway 16 Pressure Results - Laboratory Findings CBC and BMP: 09/10/17 03:00 09/10/17 03:00 ABG ABG pH 7.43 pH Units (7.32-7.45) 09/08/17 23:10 ABG pCO2 38 mmHg (35-45) 09/08/17 23:10 ABG pO2 82 mmHg (85-104) L 09/08/17 23:10 ABG O2 Saturation 96 % (95-98) 09/08/17 23:10 PT/INR, D-dimer PT 12.1 Seconds (9.4-12.1) 09/08/17 22:12 Abnormal lab findings: Abnormal lab results WBC 13.3 K/mcL (4.3-11.1) H D 09/10/17 03:00 RBC 2.87 M/mcL (3.82-4.97) L 09/10/17 03:00 Hgb 8.6 g/dL (11.5-15.4) L 09/10/17 03:00 Hct 25.9 % (35.3-44.9) L 09/10/17 03:00 MPV 9.2 fL (9.4-12.4) L 09/10/17 03:00 Neutrophils # 11.9 K/mcL (1.6-8.9) H 09/10/17 03:00 ABG pO2 82 mmHg (85-104) L 09/08/17 23:10 Sodium 129 mEq/L (136-145) L 09/10/17 03:00 Creatinine 0.42 mg/dL (0.60-1.20) L 09/10/17 03:00 BUN/Creatinine Ratio 33 (6-26) H 09/10/17 03:00 Glucose 185 mg/dL (70-105) H 09/10/17 03:00 POC Glucose 156 (58-89) H 09/10/17 11:55 Serum Osmolality 275 mOsm/kg (280-300) L 09/10/17 03:00 Calculated Osmolality 273 (280-300) L 09/10/17 03:00 Calcium 8.5 mg/dL (8.6-10.3) L 09/10/17 03:00 Venous Ioniz Calcium 1.14 mmol/L (1.15-1.35) L 09/10/17 03:15 AST 46 Units/L (13-39) H 09/08/17 22:12 B-Natriuretic Peptide 198 pg/mL (Less than 100) H 09/08/17 22:12 Albumin 3.2 g/dL (3.5-5.7) L 09/08/17 22:12 Albumin/Globulin Ratio 1.0 (1.1-2.2) L 09/08/17 22:12 - Microbiology Findings Microbiology Findings: Microbiology, Last 48 Hours 09/09/17 01:45 Sputum Culture - Final Sputum - Clinical Findings Intake & Output: Intake & Output 09/09/17 09/10/17 09/10/17 23:59 07:59 15:59 Intake Total 200 / 200 1036 / 1036 100 / 100 Output Total 125 / 125 200 / 200 150 / 150 Balance 75 / 75 836 / 836 -50 / -50 Weight 55 kg - Attending Attestation I examined this patient and my medical decision-making was reviewed with the Resident Physician. I agree with the documented findings, disposition and treatment plan as described except to the extent set forth below. Patient seen and examined. Labs, radiology, chart personally reviewed. 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 After discussion with ENT and patient passed a spontaneous breathing trial then she was successfully extubated. Cardiovascular: stable GI: Nutrition per dietary and GI prophylaxis per routine. Patient will be fed through her PEG tube. She remained high risk for aspiration. Heme: DVT prophylaxis per routine. Oncology team has seen patient as well as palliative care. ID: Continue antibiotics and plan to de-escalation Renal; urine out put and renal funtion reviewed Endorcine: blood glucose is monitored Lines: all lines checked and no evidence of infections Skin: skin care to prevent pressure ulcers per nursing routine care Patient hemodynamically stable to be transferred to the floor.
--- NOTE | 2017-09-10 10:08 | ENT - Consult Note ---
Date of Encounter: 09/10/17 Time of Encounter: 10:04 Assessment and Plan (1) Aspiration pneumonia Current Visit: Yes Status: Acute Due to esophageal tumor obstruction. She is getting her nutrition via PEG without difficulty. Airway is patent and stable for extubation. If continued aspiration and PNA is an issue, she may need a tracheotomy for airway secretion protection ENT available to help if this is needed. Qualifiers: Aspiration pneumonia type: unspecified Laterality: left Lung location: lower lobe of lung Qualified Code(s): J69.0 - Pneumonitis due to inhalation of food and vomit (2) Respiratory failure Current Visit: Yes Status: Acute ICU plans for extubation today Airway patent and stable. No obstructing masses on NPL today. No supraglottic edema noted. Qualifiers: Chronicity: acute Respiratory failure complication: hypoxia Qualified Code(s): J96.01 - Acute respiratory failure with hypoxia (3) Esophageal cancer Current Visit: Yes Status: Chronic s/p chemo via [facility], follows with [facility] as well Qualifiers: Malignant neoplasm of esophagus location: middle third Qualified Code(s): C15.4 - 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 (4) Oropharyngeal cancer Current Visit: Yes Status: Acute s/p chemo via [facility], follows with [facility] as well History of Present Illness Consult date: 09/10/17 Reason for ENT Consult: other (airway eval, hx of OP and esophageal cancer) History of present illness: Pt is a 62 yo female with a 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 She has seen [facility] as well as oncology at [facility]. She is s/p chemo treatments recently finished. She present to the [facility] ED with increasing SOB and dypnea and was found to has PNA likely due to aspiration via CXR and CT. She was intubated in the ED and has been cared for in the ICU. ENT is consulted today to eval the airway for anticipated extubation. She is awake, alert, and reports decrease in size of her mass following her chemotherapy treatments. Past Med Surg Social Fam HX - Past Medical History Medical history: cancer, CVA, hypertension Psychiatric history: no psych history - Past Surgical History Surgical History: other - Social History Smoking Status: Former smoker Smokeless Tobacco Status: No Alcohol use: none Drug use: none Medications and Allergies Albuterol Sulfate [Albuterol Inhaler] 2 puff IH Q4HR PRN 07/02/17 [History] Aspirin [Ecotrin] 325 mg GTUBE DAILY PRN 07/02/17 [History] Atorvastatin Calcium 80 mg PO HS 07/02/17 [History] amLODIPine [Norvasc] 5 mg PO DAILY 07/02/17 [History] Acetaminophen [Tylenol] 1,000 mg PO Q6HR PRN 09/08/17 [History] Fluticasone/Salmeterol [Advair Hfa 45-21 Mcg Inhaler] 2 puff IH BID PRN #1 inh 09/08/17 [Rx] Guaifenesin [Robafen] 200 mg PO Q4H PRN 09/08/17 [History] Loratadine [Allergy Relief] 10 mg PO DAILY 09/08/17 [History] Ondansetron [Zofran] 8 mg PO Q8HR PRN 09/08/17 [History] Potassium Chloride Elixir [Potassium Chloride] 20 meq GTUBE DAILY 09/08/17 [ History] Prochlorperazine Maleate [Compazine] 10 mg PO Q8HR 09/08/17 [History] Escitalopram [Lexapro] 20 mg PO DAILY 09/09/17 [History] Glycopyrrolate [Robinul] 1 mg PO BID 09/09/17 [History] Zolpidem [Ambien] 10 mg PO HS PRN 09/09/17 [History] 3 Allergy/AdvReac Type Severity Reaction Status Date / Time Penicillins Allergy Rash Verified 09/09/17 13:50 Sulfa (Sulfonamide Allergy Rash Verified 09/09/17 13:50 Antibiotics) ENT - ROS ROS unobtainable: due to endotracheal tube ENT Exam Initial Vital Signs Temp Pulse Resp BP Pulse Ox 98.8 F 121 34 149/84 88 09/08/17 21:43 09/08/17 21:43 09/08/17 21:43 09/08/17 21:43 09/08/17 21:43 - General physical appearance no distress, cachectic, other (alert and answers questions appropriately with nods, ETT in place.) - ENT normal pinna, normal nares, normal mucosa, Other (left soft palate tumor much smaller in appearance compared to many weeks ago, last time I saw this patient. ) - Neck other (right LAD) - Respiratory other (Intubated on PSV) - Abdomen Abdomen: no distended - Integumentary no rash, no growths - Neurologic normal coordination - Musculoskeletal normal gait, normal posture - Psychiatric other (oriented and aware, intubted) - Additional Findings NPL exam: After informed consent, afrin/lidcaine spray was applied to the right nares. A flexible fiberoptic NPL scope was advanced through the right nose to the BATTERY BUILDER and then the larynx. The ETT was in place with good visualization of the glottic structures. No supraglottic edema noted on exam. No obstructing lesions noted. The soft palate mass was seen and noted to be much smaller than my last visit with this patient, pre-treatment, many weeks ago. Airway was patent and stable for extubation pending good cuff leak. The scope was retracted without difficulty. She tolerated this well. Exam Initial Vital Signs Temp Pulse Resp BP Pulse Ox 98.8 F 121 34 149/84 88 09/08/17 21:43 09/08/17 21:43 09/08/17 21:43 09/08/17 21:43 09/08/17 21:43 Results - Labs 09/10/17 03:00 09/10/17 03:00 Abnormal lab results WBC 13.3 K/mcL (4.3-11.1) H D 09/10/17 03:00 RBC 2.87 M/mcL (3.82-4.97) L 09/10/17 03:00 Hgb 8.6 g/dL (11.5-15.4) L 09/10/17 03:00 Hct 25.9 % (35.3-44.9) L 09/10/17 03:00 MPV 9.2 fL (9.4-12.4) L 09/10/17 03:00 Neutrophils # 11.9 K/mcL (1.6-8.9) H 09/10/17 03:00 ABG pO2 82 mmHg (85-104) L 09/08/17 23:10 Sodium 129 mEq/L (136-145) L 09/10/17 03:00 Creatinine 0.42 mg/dL (0.60-1.20) L 09/10/17 03:00 BUN/Creatinine Ratio 33 (6-26) H 09/10/17 03:00 Glucose 185 mg/dL (70-105) H 09/10/17 03:00 POC Glucose 214 (58-89) H 09/10/17 00:17 Serum Osmolality 275 mOsm/kg (280-300) L 09/10/17 03:00 Calculated Osmolality 273 (280-300) L 09/10/17 03:00 Calcium 8.5 mg/dL (8.6-10.3) L 09/10/17 03:00 Venous Ioniz Calcium 1.14 mmol/L (1.15-1.35) L 09/10/17 03:15 AST 46 Units/L (13-39) H 09/08/17 22:12 B-Natriuretic Peptide 198 pg/mL (Less than 100) H 09/08/17 22:12 Albumin 3.2 g/dL (3.5-5.7) L 09/08/17 22:12 Albumin/Globulin Ratio 1.0 (1.1-2.2) L 09/08/17 22:12 Diabetes panel 09/10/17 Range/Units 03:00 Sodium 129 L (136-145) mEq/L Potassium 4.1 (3.5-5.1) mEq/L Chloride 98 (98-107) mEq/L Carbon Dioxide 25 (23-29) mEq/L BUN 14 (8-23) mg/dL Creatinine 0.42 L (0.60-1.20) mg/dL Glucose 185 H (70-105) mg/dL Calcium 8.5 L (8.6-10.3) mg/dL Calcium panel 09/10/17 Range/Units 03:00 Calcium 8.5 L (8.6-10.3) mg/dL Pituitary panel 09/10/17 Range/Units 03:00 Sodium 129 L (136-145) mEq/L Potassium 4.1 (3.5-5.1) mEq/L Chloride 98 (98-107) mEq/L Carbon Dioxide 25 (23-29) mEq/L BUN 14 (8-23) mg/dL Creatinine 0.42 L (0.60-1.20) mg/dL Glucose 185 H (70-105) mg/dL Calcium 8.5 L (8.6-10.3) mg/dL Adrenal panel 09/10/17 Range/Units 03:00 Sodium 129 L (136-145) mEq/L Potassium 4.1 (3.5-5.1) mEq/L Chloride 98 (98-107) mEq/L Carbon Dioxide 25 (23-29) mEq/L BUN 14 (8-23) mg/dL Creatinine 0.42 L (0.60-1.20) mg/dL Glucose 185 H (70-105) mg/dL Calcium 8.5 L (8.6-10.3) mg/dL All other labs normal. Consult Discharge Plan - Plan Referrals: Marilee Nettles DO [Primary Care Provider] -
[2017-09-10] MEDS ORDERED: D5% in Water 1,000 ML IVC PRN (10:34)
[2017-09-10] MEDS ORDERED: Dexmedetomidine HCl 400 MCG/100 ML MLS IVC SCH (10:34)
[2017-09-10] MEDS ORDERED: Lacri-Lube 3.5 GM TUBE BOTH EYES PRN (10:34)
[2017-09-10] MEDS ORDERED: Dextrose Gel 15 GM/37.5 ML TUBE PO PRN ×2 (10:34)
[2017-09-10] MEDS ORDERED: FentaNYL (PF) 1,000 MCG in 0.9 % Sodium Chloride 80 ML IVC PRN (10:34)
[2017-09-10] MEDS ORDERED: *HR* Dextrose 50 % in Water (Syg) 50 ML SYRINGE IVP PRN (10:34)
--- NOTE | 2017-09-10 11:05 | Palliative Progress Note ---
Date of Encounter: 09/10/17 Time of Encounter: 11:00 - Assessment and plan (1) Dyspnea Current Visit: Yes Status: Acute Assessment and plan: Extubated and doing well on nasal cannula. Monitor Qualifiers: Dyspnea type: unspecified Qualified Code(s): R06.00 - Dyspnea, unspecified (2) Counseling regarding advanced care planning and goals of care Current Visit: Yes Status: Acute Assessment and plan: Continue goals of care discussion from yesterday as she is now extubated. Patient does desire to pursue aggressive treatment for her cancer - she is aware that treatment may be difficult. Discussed ENT consult - and the issue that if she continues to aspirate and end up intubated - a tracheostomy decision may need made. Patient and verbalized understanding. Discussed code status at length and provided written information on [place] DNR law. Patient and to review and will revisit during this stay to see if she has made any type of code status decision. Will f/u wednesday (3) Aspiration pneumonia Current Visit: Yes Status: Acute Qualifiers: Aspiration pneumonia type: unspecified Laterality: left Lung location: lower lobe of lung Qualified Code(s): J69.0 - Pneumonitis due to inhalation of food and vomit (4) Esophageal cancer Current Visit: Yes Status: Chronic Qualifiers: Malignant neoplasm of esophagus location: middle third Qualified Code(s): C15.4 - 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 - Time Spent With Patient Total time spent is greater than 50% in coordination of care (as documented) at patient's floor/unit and/or counseling patient: 25 - 35 minutes - Subjective Interval history: Patient has recently been extubated after ENT consult. She is saturating and tolerating well. - Constitutional Vitals: Abnormal lab results WBC 13.3 K/mcL (4.3-11.1) H D 09/10/17 03:00 RBC 2.87 M/mcL (3.82-4.97) L 09/10/17 03:00 Hgb 8.6 g/dL (11.5-15.4) L 09/10/17 03:00 Hct 25.9 % (35.3-44.9) L 09/10/17 03:00 MPV 9.2 fL (9.4-12.4) L 09/10/17 03:00 Neutrophils # 11.9 K/mcL (1.6-8.9) H 09/10/17 03:00 ABG pO2 82 mmHg (85-104) L 09/08/17 23:10 Sodium 129 mEq/L (136-145) L 09/10/17 03:00 Creatinine 0.42 mg/dL (0.60-1.20) L 09/10/17 03:00 BUN/Creatinine Ratio 33 (6-26) H 09/10/17 03:00 Glucose 185 mg/dL (70-105) H 09/10/17 03:00 POC Glucose 214 (58-89) H 09/10/17 00:17 Serum Osmolality 275 mOsm/kg (280-300) L 09/10/17 03:00 Calculated Osmolality 273 (280-300) L 09/10/17 03:00 Calcium 8.5 mg/dL (8.6-10.3) L 09/10/17 03:00 Venous Ioniz Calcium 1.14 mmol/L (1.15-1.35) L 09/10/17 03:15 AST 46 Units/L (13-39) H 09/08/17 22:12 B-Natriuretic Peptide 198 pg/mL (Less than 100) H 09/08/17 22:12 Albumin 3.2 g/dL (3.5-5.7) L 09/08/17 22:12 Albumin/Globulin Ratio 1.0 (1.1-2.2) L 09/08/17 22:12 Palliative Quality Palliative Quality: Screen for Code Status: Yes, Screen for Goals of Care: Yes, Screen for Pain: Yes, If Pain Regimen Started, Initiate Bowel Regimen: Yes, Screen for Nausea/Vomitting: Yes - Labs CBC & Chem 7: 09/10/17 03:00 09/10/17 03:00 Labs: Laboratory Results - last 24 hr 09/09/17 09/09/17 09/10/17 11:13 18:07 00:17 WBC RBC Hgb Hct MCV MCH MCHC RDW Plt Count MPV Immature Gran % Seg Neutrophils % Lymphocytes % Monocytes % Eosinophils % Basophils % Neutrophils # Lymphocytes # Monocytes # Eosinophils # Basophils # VBG pH Sodium Potassium Chloride Carbon Dioxide BUN Creatinine Est GFR ( Amer) Est GFR (Non-Af Amer) BUN/Creatinine Ratio Glucose POC Glucose 148 H 116 H 214 H Serum Osmolality Calculated Osmolality Calcium Venous Ioniz Calcium Magnesium Urine Osmolality Urine Creatinine Urine Sodium 09/10/17 09/10/17 09/10/17 03:00 03:00 03:00 WBC 13.3 H D RBC 2.87 L Hgb 8.6 L Hct 25.9 L MCV 90.2 MCH 30.0 MCHC 33.2 RDW 13.4 Plt Count 219 MPV 9.2 L Immature Gran % 0.2 Seg Neutrophils % 89.7 Lymphocytes % 5.0 Monocytes % 5.0 Eosinophils % 0.0 Basophils % 0.1 Neutrophils # 11.9 H Lymphocytes # 0.7 Monocytes # 0.7 Eosinophils # 0.0 Basophils # 0.0 VBG pH Sodium 129 L Potassium 4.1 Chloride 98 Carbon Dioxide 25 BUN 14 Creatinine 0.42 L Est GFR ( Amer) > 60 Est GFR (Non-Af Amer) > 60 BUN/Creatinine Ratio 33 H Glucose 185 H POC Glucose Serum Osmolality 275 L Calculated Osmolality 273 L Calcium 8.5 L Venous Ioniz Calcium Magnesium 1.9 Urine Osmolality Urine Creatinine Urine Sodium 09/10/17 09/10/17 03:00 03:15 WBC RBC Hgb Hct MCV MCH MCHC RDW Plt Count MPV Immature Gran % Seg Neutrophils % Lymphocytes % Monocytes % Eosinophils % Basophils % Neutrophils # Lymphocytes # Monocytes # Eosinophils # Basophils # VBG pH 7.39 Sodium Potassium Chloride Carbon Dioxide BUN Creatinine Est GFR ( Amer) Est GFR (Non-Af Amer) BUN/Creatinine Ratio Glucose POC Glucose Serum Osmolality Calculated Osmolality Calcium Venous Ioniz Calcium 1.14 L Magnesium Urine Osmolality 638 Urine Creatinine 97 Urine Sodium < 10.0 - ABG Interpretation ABG results: ABG ABG pH 7.43 pH Units (7.32-7.45) 09/08/17 23:10 ABG pCO2 38 mmHg (35-45) 09/08/17 23:10 ABG pO2 82 mmHg (85-104) L 09/08/17 23:10 ABG O2 Saturation 96 % (95-98) 09/08/17 23:10 PT/INR, D-dimer PT 12.1 Seconds (9.4-12.1) 09/08/17 22:12 Consult Discharge Plan - Plan Referrals: Marilee Nettles DO [Primary Care Provider] -
--- NOTE | 2017-09-10 12:49 | Oncology Inp Progress Note ---
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 Admitted for aspiration pneumonia, likely secondary to patients inability to properly rid of secretions secondary to malignancy Plan to continue to monitor patient, she will continue to receive supportive treatment/measures. Case discussed in tumor board this morning. Oncology will follow up on outpatient basis with the goal to begin concurrent chemoradiation, likely with single agent cisplatin but is TBD. Treatment will depend upon her recovery and resolution of her acute illness. Discussed this plan with patient today, verbalized she wishes to continue to pursue aggressive treatment options. Appreciate ENT consultation. If continued aspiration and PNA is an issue, she may need a tracheotomy for airway secretion protection Please refer to Dr. Schneider's attestation for further details Oncology: Subj Interval history: Ms. Martinez is extubated on currently 2 liters per nasal cannula. She reports she is comfortable and appears to be in no distress. She denies pain. Cough noted, she denies any difficulty with secretions at this time. - Constitutional Vitals: Vital Signs Temp Pulse Resp BP Pulse Ox 09/10/17 12:38 97.3 F L 09/10/17 11:16 109 09/10/17 11:00 105 22 99/53 100 09/10/17 09:03 22 09/10/17 09:00 109 18 96/61 100 09/10/17 08:22 96 09/10/17 08:00 97.5 F L 96 18 83/52 100 09/10/17 07:24 18 79/45 100 09/10/17 06:43 16 09/10/17 06:00 91 14 80/45 99 09/10/17 05:16 97.5 F L 09/10/17 05:00 89 22 82/46 99 09/10/17 04:00 79 16 93/52 100 09/10/17 03:00 75 20 103/58 100 09/10/17 02:34 92 09/10/17 02:12 19 87/50 100 09/10/17 02:00 76 19 87/50 100 09/10/17 01:00 76 18 86/46 100 09/10/17 00:54 97.0 F L 09/09/17 23:59 89 22 87/46 99 09/09/17 23:40 21 83/46 99 09/09/17 23:00 101 24 98/59 100 09/09/17 22:27 23 94/53 100 09/09/17 22:18 92 09/09/17 22:00 90 22 94/53 100 09/09/17 21:00 92 22 90/56 99 09/09/17 20:43 97.9 F 09/09/17 20:00 93 24 95/52 99 09/09/17 19:54 25 92/51 99 09/09/17 19:00 92 26 83/46 100 09/09/17 18:00 98 24 71/47 98 09/09/17 17:06 24 100/90 98 09/09/17 17:00 104 24 100/90 98 09/09/17 16:00 92 25 89/50 100 09/09/17 15:43 25 96/59 100 09/09/17 15:00 98 24 93/55 100 09/09/17 14:00 98 24 96/55 100 09/09/17 13:00 92 29 103/59 100 Intake and Output 09/09/17 09/10/17 09/10/17 23:59 07:59 15:59 Intake Total 200 / 200 1036 / 1036 100 / 100 Output Total 125 / 125 200 / 200 150 / 150 Balance 75 / 75 836 / 836 -50 / -50 Intake: IV Fluids 200 / 200 350 / 350 100 / 100 PRECEDEX Premix 400 mcg In 100 0 / 0 100 / 100 ml @ 0.2 MCG/KG/HR 2.517 mls/hr IVC .Q24H [facility] Rx#:[id number] FentaNYL (PF) 1,000 MCG In 0.9 0 / 0 % Sodium Chloride 80 ML @ 50 MCG/HR 5 mls/hr IVC CONT PRN Rx #:[id number] Unasyn 3,000 MG In 0.9 % Sodium 200 / 200 100 / 100 Chloride (Mini-Bag +) 100 ML @ 200 mls/hr IVPB Q6HR [facility] Rx#: [id number] Vancocin 1,000 MG In Dextrose 5 250 / 250 % 250 ML @ 167 mls/hr IVPB Q12H [facility] Rx#:[id number] Tube Feeding 686 / 686 Free Water Intake Amount 0 / 0 Output: Catheter 125 / 125 200 / 200 150 / 150 Other: Weight 55 kg Blood Glucose* 116 214 156 Patient Weight 09/10/17 23:59 Weight 55 kg General appearance: cooperative, no acute distress, no febrile - Head Head exam: Present: atraumatic - Respiratory Respiratory exam: Present: wheezes. Absent: respiratory distress - Cardiovascular Cardiovascular exam: Present: RRR, +S1, +S2, tachycardia - GI/Abdominal GI/Abdominal exam: Present: normal bowel sounds, soft. Absent: tenderness - Extremities Exam Extremities exam: Absent: calf tenderness, pedal edema - Neurological Exam Neurological exam: Present: alert, no focal deficits, strengths equal and symetr throughout - Psychiatric Psychiatric exam: Present: normal affect - Skin Skin exam: Present: normal color, warm Oncology: Obj Data - Labs CBC & Chem 7: 09/10/17 03:00 09/10/17 03:00 - ABG Interpretation ABG results: ABG ABG pH 7.43 pH Units (7.32-7.45) 09/08/17 23:10 ABG pCO2 38 mmHg (35-45) 09/08/17 23:10 ABG pO2 82 mmHg (85-104) L 09/08/17 23:10 ABG O2 Saturation 96 % (95-98) 09/08/17 23:10 PT/INR, D-dimer PT 12.1 Seconds (9.4-12.1) 09/08/17 22:12 Consult Discharge Plan - Plan Instructions: Clindamycin (By mouth), Pneumonia (DC) Referrals: Marilee Nettles DO [Primary Care Provider] - (web request) Prescriptions: Clindamycin HCl 600 mg GTUBE TID #15 capsule <Maria Dolores Schneider S - Last Filed: 09/13/17 10:46> Date of Encounter: 09/13/17 - Constitutional Vitals: Vital Signs Temp Pulse Resp BP Pulse Ox 09/13/17 09:41 95 09/13/17 08:02 97.7 F 102 26 104/60 100 09/13/17 07:57 18 97 09/13/17 07:19 96 09/13/17 04:00 98.5 F 99 18 111/69 96 09/13/17 03:18 18 97 09/12/17 23:22 18 94 09/12/17 23:15 98.1 F 97 18 124/71 99 09/12/17 20:44 97.9 F 100 18 121/69 96 09/12/17 20:02 16 89 09/12/17 16:30 18 96 09/12/17 16:25 98.5 F 99 18 109/61 95 09/12/17 11:23 97.6 F 99 18 105/66 99 09/12/17 11:20 18 95 Intake and Output 09/12/17 09/13/17 09/13/17 23:59 07:59 15:59 Intake Total 100 / 100 210 / 210 100 / 100 Balance 100 / 100 210 / 210 100 / 100 Intake: IV Fluids 100 / 100 200 / 200 Unasyn 3,000 MG In 0.9 % Sodium 100 / 100 200 / 200 Chloride (Mini-Bag +) 100 ML @ 200 mls/hr IVPB Q6HR [facility] Rx#: [id number] Free Water Intake Amount 10 100 / 100 Other: Stool Size Moderate Stool Consistency liquid Stool Color Brown # Voids 1 # Bowel Movements 2 # Bowel Movement Diapers 1 Weight 50.3 kg Blood Glucose* 122 119 Patient Weight 09/13/17 23:59 Weight 50.3 kg Oncology: Obj Data - Labs CBC & Chem 7: 09/13/17 03:58 09/13/17 03:58 Labs: Laboratory Results - last 24 hr 09/11/17 09/12/17 09/12/17 17:55 00:16 11:38 WBC RBC Hgb Hct MCV MCH MCHC RDW Plt Count MPV Immature Gran % Seg Neutrophils % Lymphocytes % Monocytes % Eosinophils % Basophils % Neutrophils # Lymphocytes # Monocytes # Eosinophils # Basophils # Sodium Potassium Chloride Carbon Dioxide BUN Creatinine Est GFR ( Amer) Est GFR (Non-Af Amer) BUN/Creatinine Ratio Glucose POC Glucose 123 H 134 H 139 H Calculated Osmolality Calcium 09/12/17 09/12/17 09/13/17 17:53 23:14 03:58 WBC 8.1 RBC 3.39 L Hgb 9.9 L Hct 30.8 L MCV 90.9 MCH 29.2 MCHC 32.1 RDW 13.8 Plt Count 267 MPV 9.6 Immature Gran % 0.6 Seg Neutrophils % 67.8 Lymphocytes % 17.1 Monocytes % 9.2 Eosinophils % 5.1 Basophils % 0.2 Neutrophils # 5.5 Lymphocytes # 1.4 Monocytes # 0.8 Eosinophils # 0.4 Basophils # 0.0 Sodium Potassium Chloride Carbon Dioxide BUN Creatinine Est GFR ( Amer) Est GFR (Non-Af Amer) BUN/Creatinine Ratio Glucose POC Glucose 108 H 122 H Calculated Osmolality Calcium 09/13/17 03:58 WBC RBC Hgb Hct MCV MCH MCHC RDW Plt Count MPV Immature Gran % Seg Neutrophils % Lymphocytes % Monocytes % Eosinophils % Basophils % Neutrophils # Lymphocytes # Monocytes # Eosinophils # Basophils # Sodium 135 L Potassium 3.7 Chloride 99 Carbon Dioxide 30 H BUN 13 Creatinine 0.46 L Est GFR ( Amer) > 60 Est GFR (Non-Af Amer) > 60 BUN/Creatinine Ratio 28 H Glucose 99 POC Glucose Calculated Osmolality 280 Calcium 8.6 - ABG Interpretation ABG results: ABG ABG pH 7.43 pH Units (7.32-7.45) 09/08/17 23:10 ABG pCO2 38 mmHg (35-45) 09/08/17 23:10 ABG pO2 82 mmHg (85-104) L 09/08/17 23:10 ABG O2 Saturation 96 % (95-98) 09/08/17 23:10 PT/INR, D-dimer PT 12.1 Seconds (9.4-12.1) 09/08/17 22:12 - Attending Attestation I examined this patient and my medical decision-making was reviewed with the Advanced Practice Nurse. I agree with the documented findings, disposition and treatment plan as described except to the extent set forth below. 1. Nasopharyngeal cancer post 3 cycles of induction chemotherapy at [facility] She has obvious stridor. Reviewed Dr. Neumann's notes that she has some cancer extension to the cervical esophagus. She will be considered for chemoradiation once she gets better 2. Respiratory failure postintubation on ICU. Currently extubated and able to maintain oxygen saturation
[2017-09-10] MEDS: *HR* OxyCODONE Oral Soln 5 MG/5 ML UD.LIQ GTUBE PRN (17:20)
[2017-09-10] MEDS ORDERED: Chlorhexidine Rinse 15 ML MOUTHWASH MM SCH (21:00)
[2017-09-11] MEDS: Insulin LISPRO 300 UNITS/3 ML VIAL SQ SCH ×4 (00:42→18:07)
[2017-09-11] MEDS: Ampicillin/Sulbactam 3,000 MG in 0.9 % Sodium Chloride Mini Bag 100 ML IVPB SCH ×4 (00:55→18:10)
[2017-09-11] MEDS: *HR* OxyCODONE Oral Soln 5 MG/5 ML UD.LIQ GTUBE PRN ×2 (01:43→08:14)
[2017-09-11 01:47] LABS: Basophils % 0.1 %; Hematocrit 27.3 % (35.3-44.9); Hemoglobin 8.9 g/dL (11.5-15.4); Immature Granulocytes % 0.6 % (0-4); Lymphocytes # 1.3 K/mcL (0.6-4.6); Mean Corpuscular HGB Conc 32.6 g/dL (31.6-35.5); Mean Corpuscular Hemoglobin 29.7 pg (28.0-33.3); Mean Platelet Volume 9.8 fL (9.4-12.4); Monocytes # 0.8 K/mcL (0.0-1.3); Monocytes % 7.7 %; Neutrophils # 8.6 K/mcL (1.6-8.9); Nucleated Red Blood Cells 0.2 /100 WBC (0); Platelet Count 240 K/mcL (140-400); Red Cell Distribution Width 13.5 % (11.5-14.5); Segmented Neutrophils % 79.6 %
[2017-09-11 02:01] LABS: BUN/Creatinine Ratio 37 (6-26); Blood Urea Nitrogen 15 mg/dL (8-23); Calcium 8.4 mg/dL (8.6-10.3); Carbon Dioxide 31 mEq/L (23-29); Chloride 100 mEq/L (98-107); Glucose 113 mg/dL (70-105); Osmolality,Calculated 284 (280-300); Potassium 3.9 mEq/L (3.5-5.1); Sodium 136 mEq/L (136-145); eGFR For African Americans > 60 (> 60); eGFR For Non-African Americans > 60 (> 60)
[2017-09-11] MEDS: Ipratropium/Albuterol Neb 3 ML IH SCH ×6 (03:37→23:37)
[2017-09-11] MEDS: *HR* Enoxaparin 40 MG/0.4 ML SYRINGE SQ SCH (06:19)
--- NOTE | 2017-09-11 06:53 | Electrocardiograph Report ---
[address] [place], [place] [address] Test Date: 2017-09-08 Pat Name: Crystal Martinez Department: [id number] Room: 2A48 Gender: F Quality Assurance Manager: [facility] : 1955 Requested By: Anil Domínguez Order Number: [id number] Reading MD: Austin Duffy MD Measurements Intervals Harold Rate: 123 P: 64 ME: 156 QRS: -4 QRSD: 70 T: 53 QT: 309 QTc: 382 Interpretive Statements SINUS TACHYCARDIA INFERIOR MYOCARDIAL INFARCTION, PROBABLY OLD WITH POSTERIOR EXTENSION BASELINE ARTIFACT Electronically Signed On 09-11-2017 6:52:14 EST by Austin Duffy MD
--- NOTE | 2017-09-11 12:02 | Internal Med Progress Note ---
Date of Encounter: 09/11/17 Time of Encounter: 11:59 - Assessment and plan (1) Aspiration pneumonia Current Visit: Yes Status: Acute Assessment and plan: Intravenous Unasyn. Follow-up for cultures. Cultures have been negative so far. Wean down oxygen as tolerated. Continue with nebs. Aspiration precautions. Qualifiers: Aspiration pneumonia type: unspecified Laterality: left Lung location: lower lobe of lung Qualified Code(s): J69.0 - Pneumonitis due to inhalation of food and vomit (2) Respiratory failure Current Visit: Yes Status: Acute Assessment and plan: Status post intubation and extubation. Qualifiers: Chronicity: acute Respiratory failure complication: hypoxia Qualified Code(s): J96.01 - Acute respiratory failure with hypoxia (3) Oropharyngeal cancer Current Visit: Yes Status: Acute Assessment and plan: Follow-up with oncology outpatient for chemotherapy. They are also following inpatient. (4) Esophageal cancer Current Visit: Yes Status: Chronic Assessment and plan: Follow-up with oncology outpatient for chemotherapy. They are also following inpatient. Qualifiers: Malignant neoplasm of esophagus location: middle third Qualified Code(s): C15.4 - 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 (5) Hypertension Current Visit: No Status: Chronic Assessment and plan: Pressure stable. Hold Norvasc for now. Qualifiers: Hypertension type: essential hypertension Qualified Code(s): I10 - Essential (primary) hypertension (6) COPD (chronic obstructive pulmonary disease) Current Visit: No Status: Chronic Assessment and plan: Continue with nebs. Not in exacerbation. Qualifiers: COPD type: unspecified COPD Qualified Code(s): J44.9 - Chronic obstructive pulmonary disease, unspecified (7) Intra-abdominal free air of unknown etiology Current Visit: Yes Status: Acute Assessment and plan: Unclear etiology. Possibly from PEG tube. She has no abdominal pain. Continue to monitor with serial abdominal exam. (8) DVT prophylaxis Current Visit: Yes Status: Acute Assessment and plan: lovenox (9) Counseling regarding advanced care planning and goals of care Current Visit: Yes Status: Acute Assessment and plan: Palliative is following. Appreciate the help. - Subjective Interval history: Patient was seen and examined. She was admitted with aspiration pneumonia needing aspiration. History of esophageal cancer. Transfer out of ICU. Afebrile. Has been maintained on 3 L of nasal cannula oxygen. - Constitutional Vitals: Temp Pulse Resp BP Pulse Ox 98.0 F 95 17 119/66 93 09/11/17 11:52 09/11/17 11:52 09/11/17 11:52 09/11/17 11:52 09/11/17 11:52 General appearance: Present: cachectic Exam: GEN: NAD CVS: RRR. S1, S2, No m/r/g RESP: Diminished at the bases. Coarse breath sounds scattered. ABD: Soft, NT, ND, +BS. PEG noted EXT: No edema. 2+ DP. No rashes NEURO: Nonfocal Internal Medicine: Result - Labs CBC & Chem 7: 09/11/17 01:30 09/11/17 01:30 Labs: Short CBC 09/11/17 Range/Units 01:30 WBC 10.9 (4.3-11.1) K/mcL Hgb 8.9 L (11.5-15.4) g/dL Hct 27.3 L (35.3-44.9) % Plt Count 240 (140-400) K/mcL Neutrophils # 8.6 (1.6-8.9) K/mcL BMP 09/11/17 01:30 Sodium 136 Potassium 3.9 Chloride 100 Carbon Dioxide 31 H BUN 15 Creatinine 0.41 L Glucose 113 H Calcium 8.4 L - ABG Interpretation ABG results: ABG ABG pH 7.43 pH Units (7.32-7.45) 09/08/17 23:10 ABG pCO2 38 mmHg (35-45) 09/08/17 23:10 ABG pO2 82 mmHg (85-104) L 09/08/17 23:10 ABG O2 Saturation 96 % (95-98) 09/08/17 23:10 PT/INR, D-dimer PT 12.1 Seconds (9.4-12.1) 09/08/17 22:12 Consult Discharge Plan - Plan Referrals: Marilee Nettles DO [Primary Care Provider] -
[2017-09-11] MEDS: Acetaminophen 325 MG TABLET PO PRN (18:48)
[2017-09-12] MEDS: Ampicillin/Sulbactam 3,000 MG in 0.9 % Sodium Chloride Mini Bag 100 ML IVPB SCH ×4 (00:14→17:58)
[2017-09-12] MEDS: Insulin LISPRO 300 UNITS/3 ML VIAL SQ SCH ×4 (00:17→18:35)
[2017-09-12] MEDS: Ipratropium/Albuterol Neb 3 ML IH SCH ×6 (04:18→23:22)
[2017-09-12] MEDS: *HR* Enoxaparin 40 MG/0.4 ML SYRINGE SQ SCH (05:53)
[2017-09-12] MEDS: *HR* OxyCODONE Oral Soln 5 MG/5 ML UD.LIQ GTUBE PRN (08:58)
--- NOTE | 2017-09-12 09:13 | Internal Med Progress Note ---
Date of Encounter: 09/12/17 Time of Encounter: 09:11 - Assessment and plan (1) Aspiration pneumonia Current Visit: Yes Status: Acute Assessment and plan: Continue Intravenous Unasyn. Cultures have been negative so far. Wean down oxygen as tolerated. Continue with nebs. Aspiration precautions. Possible discharge tomorrow Qualifiers: Aspiration pneumonia type: unspecified Laterality: left Lung location: lower lobe of lung Qualified Code(s): J69.0 - Pneumonitis due to inhalation of food and vomit (2) Respiratory failure Current Visit: Yes Status: Acute Assessment and plan: Status post intubation and extubation. Qualifiers: Chronicity: acute Respiratory failure complication: hypoxia Qualified Code(s): J96.01 - Acute respiratory failure with hypoxia (3) Oropharyngeal cancer Current Visit: Yes Status: Acute Assessment and plan: Follow-up with oncology outpatient for chemotherapy. They are also following inpatient. (4) Esophageal cancer Current Visit: Yes Status: Chronic Assessment and plan: Follow-up with oncology outpatient for chemotherapy. They are also following inpatient. Qualifiers: Malignant neoplasm of esophagus location: middle third Qualified Code(s): C15.4 - 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 (5) Hypertension Current Visit: No Status: Chronic Assessment and plan: Pressure stable. Hold Norvasc for now. Qualifiers: Hypertension type: essential hypertension Qualified Code(s): I10 - Essential (primary) hypertension (6) COPD (chronic obstructive pulmonary disease) Current Visit: No Status: Chronic Assessment and plan: Continue with nebs. Not in exacerbation. Qualifiers: COPD type: unspecified COPD Qualified Code(s): J44.9 - Chronic obstructive pulmonary disease, unspecified (7) Intra-abdominal free air of unknown etiology Current Visit: Yes Status: Acute Assessment and plan: Unclear etiology. Possibly from PEG tube. She has no abdominal pain. Continue to monitor with serial abdominal exam. (8) DVT prophylaxis Current Visit: Yes Status: Acute Assessment and plan: lovenox (9) Counseling regarding advanced care planning and goals of care Current Visit: Yes Status: Acute - Subjective Interval history: Patient was seen and examined. She was admitted with aspiration pneumonia. History of esophageal cancer. She is doing better this morning. She is down to about 1-2 L nasal cannula oxygen. She is not O2 dependent at home. She has been afebrile. She still had been somewhat of a significant secretions. - Constitutional Vitals: Temp Pulse Resp BP Pulse Ox 97.8 F 108 17 132/53 95 09/12/17 07:37 09/12/17 07:37 09/12/17 07:37 09/12/17 07:37 09/12/17 08:34 General appearance: Present: cachectic Exam: GEN: NAD CVS: RRR. S1, S2, No m/r/g RESP: Diminished at the bases. Coarse breath sounds scattered. ABD: Soft, NT, ND, +BS. PEG noted EXT: No edema. 2+ DP. No rashes NEURO: Nonfocal Internal Medicine: Result - Labs CBC & Chem 7: 09/11/17 01:30 09/11/17 01:30 - ABG Interpretation ABG results: ABG ABG pH 7.43 pH Units (7.32-7.45) 09/08/17 23:10 ABG pCO2 38 mmHg (35-45) 09/08/17 23:10 ABG pO2 82 mmHg (85-104) L 09/08/17 23:10 ABG O2 Saturation 96 % (95-98) 09/08/17 23:10 PT/INR, D-dimer PT 12.1 Seconds (9.4-12.1) 09/08/17 22:12 Consult Discharge Plan - Plan Referrals: Marilee Nettles DO [Primary Care Provider] -
[2017-09-12] MEDS: Acetaminophen 325 MG TABLET PO PRN (15:47)
[2017-09-13] MEDS: Insulin LISPRO 300 UNITS/3 ML VIAL SQ SCH ×2 (00:07→06:14)
[2017-09-13] MEDS: Ampicillin/Sulbactam 3,000 MG in 0.9 % Sodium Chloride Mini Bag 100 ML IVPB SCH ×2 (00:22→06:15)
[2017-09-13] MEDS: Ipratropium/Albuterol Neb 3 ML IH SCH ×2 (03:18→07:56)
[2017-09-13] MEDS: Acetaminophen 325 MG TABLET PO PRN ×2 (03:43→09:20)
[2017-09-13 04:41] LABS: Basophils % 0.2 %; Eosinophils # 0.4 K/mcL (0.0-0.6); Eosinophils % 5.1 %; Hematocrit 30.8 % (35.3-44.9); Hemoglobin 9.9 g/dL (11.5-15.4); Immature Granulocytes % 0.6 % (0-4); Lymphocytes # 1.4 K/mcL (0.6-4.6); Lymphocytes % 17.1 %; Mean Corpuscular HGB Conc 32.1 g/dL (31.6-35.5); Mean Corpuscular Hemoglobin 29.2 pg (28.0-33.3); Mean Corpuscular Volume 90.9 fL (83.0-100.0); Mean Platelet Volume 9.6 fL (9.4-12.4); Monocytes # 0.8 K/mcL (0.0-1.3); Monocytes % 9.2 %; Neutrophils # 5.5 K/mcL (1.6-8.9); Platelet Count 267 K/mcL (140-400); Red Blood Count 3.39 M/mcL (3.82-4.97); Red Cell Distribution Width 13.8 % (11.5-14.5); Segmented Neutrophils % 67.8 %
[2017-09-13 05:08] LABS: BUN/Creatinine Ratio 28 (6-26); Blood Urea Nitrogen 13 mg/dL (8-23); Calcium 8.6 mg/dL (8.6-10.3); Carbon Dioxide 30 mEq/L (23-29); Chloride 99 mEq/L (98-107); Glucose 99 mg/dL (70-105); Osmolality,Calculated 280 (280-300); Potassium 3.7 mEq/L (3.5-5.1); Sodium 135 mEq/L (136-145); eGFR For African Americans > 60 (> 60); eGFR For Non-African Americans > 60 (> 60)
[2017-09-13] MEDS: *HR* Enoxaparin 40 MG/0.4 ML SYRINGE SQ SCH (06:16)
[2017-09-13 08:03] VITALS: BP 104/60
--- NOTE | 2017-09-13 08:38 | Discharge Summary ---
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 (4) Esophageal cancer Priority: Secondary Status: Chronic Qualifiers: Malignant neoplasm of esophagus location: middle third Qualified Code(s): C15.4 - 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 (5) Hypertension Priority: Secondary Status: Chronic Qualifiers: Hypertension type: essential hypertension Qualified Code(s): I10 - Essential (primary) hypertension (6) COPD (chronic obstructive pulmonary disease) Priority: Secondary Status: Chronic Qualifiers: COPD type: unspecified COPD Qualified Code(s): J44.9 - Chronic obstructive pulmonary disease, unspecified (7) Intra-abdominal free air of unknown etiology Priority: Secondary Status: Acute - Discharge Medications Prescriptions: Clindamycin HCl 600 mg GTUBE TID #15 capsule Home Medications: Albuterol Sulfate [Albuterol Inhaler] 2 puff IH Q4HR PRN 07/02/17 [History] Aspirin [Ecotrin] 325 mg GTUBE DAILY PRN 07/02/17 [History] Atorvastatin Calcium 80 mg PO HS 07/02/17 [History] amLODIPine [Norvasc] 5 mg PO DAILY 07/02/17 [History] Acetaminophen [Tylenol] 1,000 mg PO Q6HR PRN 09/08/17 [History] Fluticasone/Salmeterol [Advair Hfa 45-21 Mcg Inhaler] 2 puff IH BID PRN #1 inh 09/08/17 [Rx] Guaifenesin [Robafen] 200 mg PO Q4H PRN 09/08/17 [History] Loratadine [Allergy Relief] 10 mg PO DAILY 09/08/17 [History] Ondansetron [Zofran] 8 mg PO Q8HR PRN 09/08/17 [History] Potassium Chloride Elixir [Potassium Chloride] 20 meq GTUBE DAILY 09/08/17 [ History] Prochlorperazine Maleate [Compazine] 10 mg PO Q8HR 09/08/17 [History] Escitalopram [Lexapro] 20 mg PO DAILY 09/09/17 [History] Glycopyrrolate [Robinul] 1 mg PO BID 09/09/17 [History] Zolpidem [Ambien] 10 mg PO HS PRN 09/09/17 [History] Clindamycin HCl 600 mg GTUBE TID #15 capsule 09/13/17 [Rx] Allergies/Adverse Reactions: 3 Allergy/AdvReac Type Severity Reaction Status Date / Time Penicillins Allergy Rash Verified 09/09/17 13:50 Sulfa (Sulfonamide Allergy Rash Verified 09/09/17 13:50 Antibiotics) Date of admission: 09/09/17 01:06 Primary care physician: John Collazo Consults: 09/09/17 01:47 Consult to Pulmonology [CONS] Routine Consulting Provider: [facility] Reason for Consult: Respiratory failure, esophageal cancer, pneumonia Call Completed: No 09/09/17 01:48 Consult to Oncology [CONS] Routine Consulting Provider: [facility] Reason for Consult: Esophageal cancer Call Completed: No Consult to Palliative Care [CONS] Routine Comment: Consulting Provider: [facility] [place] Reason for Consult: End of life discussion, Significant other unsure of plan but no suffering for patient. Needs some apparent guidance. Call Completed: No 09/09/17 06:33 consult to stamping operator [Consult to Nutrition] [CONS] Routine Comment: Consulting Provider: NUTRITION Reason for Dietary Consult: Tube Feed Start & Manage 09/09/17 08:23 Consult to ENT [CONS] Routine Consulting Provider: [facility] [place] Reason for Consult: Histroy of esophageal cancer; recommendations on extubation/plan of care Call Completed: No - Patient Status Disposition: Home, Self-Care Condition: Fair Overall status at discharge: patient is progressing back to baseline - Discharge Instructions Instructions: Clindamycin (By mouth), Pneumonia (DC) Follow Up With: Marilee Nettles DO [Primary Care Provider] - (web request) - Diet and Activity Activity: increase activity as tolerated Diet: diabetic diet Hospital course: Ms. 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 The patient went to oncologist here at [facility] Doctor Gant, for their first initial visit today. The patient's stated that over the course of the past month the patient has had some concerning worsening dyspnea and difficulty in breathing along with increased secretions. The patient has esophageal cancer that has completely occluded the esophagus in the patient has not been able to handle secretions so the states that the patient has had numerous episodes where she is aspirated and experienced difficulty in breathing. Due to progressive shortness of breath, EMS was called. Upon EMS arrival the patient was noted to have O2 saturation in the 80s. After giving the patient 3 L nasal cannula the patient quickly jelly into the low 90s. Upon arrival to the emergency department the patient was started on BiPAP but remained tachypneic, and anxious with an O2 saturation ranging from 86-91%. The patient was using accessory muscles and was altered from her baseline according to the . It was at that time that the emergency room physician made the decision to electively intubate the patient. The patient was admitted to the ICU. Workup in the emergency department to include a CTA and chest x-ray of the chest demonstrated a left lower lobe consolidation consistent with possible aspirated of pneumonia as well as a right lobe consistent with aspiration pneumonia. She was initially started on broad-spectrum antibiotic. Eventually switched to Unasyn. The patient was eventually extubated. She never needed pressors. She was weaned down on oxygen as tolerated. Palliative was consulted. Oncology was also following peripherally. The patient did not qualify for home oxygen. She was discharged on clindamycin and she has a penicillin allergy tested. She will follow-up with her primary care physician as well as oncology. - Time Spent with Patient Total time spent providing and/or coordinating discharge services: - Constitutional Vitals: Temp Pulse Resp BP Pulse Ox 97.7 F 102 26 104/60 100 09/13/17 08:02 09/13/17 08:02 09/13/17 08:02 09/13/17 08:02 09/13/17 08:02 General appearance: Present: cachectic Exam: GEN: NAD CVS: RRR. S1, S2, No m/r/g RESP: Diminished at the bases. Coarse breath sounds scattered. ABD: Soft, NT, ND, +BS. PEG noted EXT: No edema. 2+ DP. No rashes NEURO: Nonfocal
[2017-09-13] MEDS: *HR* OxyCODONE Oral Soln 5 MG/5 ML UD.LIQ GTUBE PRN (10:49)
== END 2017-09-13 11:24 | disposition home or self-care (01) | DRG 208 ==
LOC: EMEROO 21:40 → ICNU 09-09 01:06 → 2ANU 09-10 20:52
PROVIDERS: ADMIT Pediatrics; ATTEND Hospitalist

== ENCOUNTER 2017-09-26 02:59 | Inpatient (IN) ==
[2017-09-26] MEDS ORDERED: 0.9 % Sodium Chloride 1,000 ML IVC ONE ×2 (03:08→04:29)
[2017-09-26 03:33] LABS: Basophils % 0.1 %; Eosinophils % 0.3 %; Hematocrit 27.6 % (35.3-44.9); Hemoglobin 9.3 g/dL (11.5-15.4); Immature Granulocytes % 0.6 % (0-4); Lymphocytes # 0.5 K/mcL (0.6-4.6); Lymphocytes % 6.6 %; Mean Corpuscular HGB Conc 33.7 g/dL (31.6-35.5); Mean Corpuscular Hemoglobin 30.2 pg (28.0-33.3); Mean Corpuscular Volume 89.6 fL (83.0-100.0); Mean Platelet Volume 9.6 fL (9.4-12.4); Monocytes # 0.4 K/mcL (0.0-1.3); Monocytes % 6.1 %; Neutrophils # 5.9 K/mcL (1.6-8.9); Platelet Count 255 K/mcL (140-400); Red Blood Count 3.08 M/mcL (3.82-4.97); Red Cell Distribution Width 14.2 % (11.5-14.5); Segmented Neutrophils % 86.3 %
[2017-09-26 03:51] LABS: INR 1.1; Prothrombin Time 11.5 Seconds (9.4-12.1)
[2017-09-26 03:53] LABS: BUN/Creatinine Ratio 24 (6-26); Blood Urea Nitrogen 12 mg/dL (8-23); Calcium 8.2 mg/dL (8.6-10.3); Carbon Dioxide 23 mEq/L (23-29); Chloride 90 mEq/L (98-107); Glucose 213 mg/dL (70-105); Osmolality,Calculated 260 (280-300); Potassium 3.8 mEq/L (3.5-5.1); Sodium 122 mEq/L (136-145); eGFR For African Americans > 60 (> 60); eGFR For Non-African Americans > 60 (> 60)
[2017-09-26] MEDS ORDERED: Dexamethasone 4 MG/ML VIAL IVP ONE (04:04)
[2017-09-26] MEDS ORDERED: Aspirin 81 MG TAB.CHEW PO STA (04:05)
[2017-09-26] MEDS ORDERED: Cefepime HCl 2,000 MG in D5% in Water (Mini-Bag+) 100 ML IVPB STA (05:29)
[2017-09-26] MEDS ORDERED: Levofloxacin 750 MG/150 ML 750 MG/150 ML BAG IVPB ONE (05:29)
[2017-09-26] MEDS ORDERED: Vancomycin 1,000 MG in D5% in Water 250 ML IVPB ONE (05:29)
--- NOTE | 2017-09-26 05:49 | Emergency Department Note ---
Disposition Clinical Impression: Pneumonia Qualifiers: Pneumonia type: due to unspecified organism Laterality: unspecified laterality Lung location: unspecified part of lung Qualified Code(s): J18.9 - Pneumonia, unspecified organism Disposition: Admitted As Inpatient Condition: Good SOB HPI - General Chief Complaint: ED Shortness of Breath/Dyspnea Stated Complaint: SOB Time Seen by Provider: 09/26/17 03:05 Source: patient, family Limitations: no limitations Nursing Notes Reviewed: Yes Vital Signs Reviewed: Yes - History of Present Illness Patient has a history of esophageal cancer with extension into the trachea close to the jaja. This presents an obstructive type lesion in nature. She is brought in after she is had mild increased work of breathing. is at bedside and states she has had tachypnea ever since she was last admitted to the hospital. She has her pulse ox checked continuously throughout the day. Patient had difficulty sleeping and was going to need a dose of Ambien. She is given Ambien and her pulse ox was checked and found to be in the 70s. Patient was brought into the emergency department and placed on a nonrebreather with improvement of her oxygen into the low 90s. Patient was placed on BiPAP secondary to previous history of needing intubation. In further discussion with the the patient has had a change in her overall sputum. Patient states that if she has cardiac arrest she does not want compressions however if she needs intubated secondary to pneumonia or something where she has a chance of getting off the ventilator she does want to be intubated. - Related Data Home Medications Medication Instructions Recorded Confirmed Albuterol Sulfate [Albuterol 2 puff IH Q4HR PRN 07/02/17 09/24/17 Inhaler] Acetaminophen [Tylenol] 1,000 mg PO Q6HR PRN 09/08/17 09/24/17 Ondansetron [Zofran] 8 mg PO Q8HR PRN 09/08/17 09/24/17 Potassium Chloride Elixir 20 meq GTUBE DAILY 09/08/17 09/24/17 [Potassium Chloride] Prochlorperazine Maleate 10 mg PO Q8HR PRN 09/08/17 09/24/17 [Compazine] Escitalopram [Lexapro] 20 mg PO DAILY 09/09/17 09/24/17 Zolpidem [Ambien] 10 mg PO HS PRN 09/09/17 09/24/17 Previous Rx's Medication Instructions Recorded Fluticasone/Salmeterol [Advair Hfa 2 puff IH BID PRN #1 inh 09/08/17 45-21 Mcg Inhaler] Albuterol Neb [Proventil Neb] 2.5 mg IH Q4HR #30 vial.neb 09/24/17 Allergies Allergy/AdvReac Type Severity Reaction Status Date / Time Penicillins Allergy Rash Verified 09/20/17 10:48 Sulfa (Sulfonamide Allergy Rash Verified 09/20/17 10:48 Antibiotics) Review of Systems: CONSTITUTIONAL: No weight loss, fever, chills, weakness or fatigue. HEENT: Eyes: No visual changes. Ears, Nose, Throat: No hearing loss, difficulty talking or unable to swallow. SKIN: No rash or itching. CARDIOVASCULAR: No chest pain, chest pressure or chest discomfort. No palpitations or edema. RESPIRATORY: As of breath with change in sputum GASTROINTESTINAL: No anorexia, nausea, vomiting or diarrhea. No abdominal pain or blood. GENITOURINARY: No burning on urination or hematuria. NEUROLOGICAL: No headache, dizziness, syncope, paralysis, ataxia, numbness or tingling in the extremities. No change in bowel or bladder control. MUSCULOSKELETAL: No muscle pain, back pain, joint pain or stiffness. Past Medical History - Past Medical History Medical history: Reports: cancer, CVA, hypertension Surgical history: Reports: other Psychiatric history: Reports: no psych history - Social History Smoking Status: Former smoker Smokeless Tobacco Status: No Alcohol use: Reports: none Drug use: Reports: none Physical Exam General: Patient with tachypnea and mild respiratory distress Head: Normocephalic Atraumatic Eyes: PERRL, EOMI ENT: Airway patent, no stridor Neck: supple, no meningismus Chest: Patient has abnormal lung sounds throughout which can best be described as upper airway noises likely secondary to esophageal mass that has started to optimize her trachea. Cardiac: Regular rate and rhythm, no murmurs, rubs or gallops Abdomen: soft, nontender, nondistended; no guarding, rebound, or tenderness to percussion Musculoskeletal: Calves symmetric, nontender, no palpable cord Skin: No rash, normal skin tone Neuro: Alert and Oriented to person, place, and time; No focal deficit - General Limitations: no limitations General appearance: alert, in distress Course - Reevaluation(s) Reevaluation #1: Patient remains tachycardic in the emergency department. Second liter of fluids been given. CTA of the chest was ordered and found to be negative. Patient's been tolerating her BiPAP well. Will discuss with hospitalist for admission for pneumonia complicated by location of her cancer. - Consultations Consultation #1: Discussed with Dr. Clark. Her CODE STATUS was clarified. DNR-CCA - Does want short term intubation. Patient will be admitted to the ICU. Vital Signs Temperature 98.2 F 09/26/17 03:07 Pulse Rate 138 09/26/17 03:07 Respiratory Rate 40 09/26/17 03:07 Blood Pressure 101/67 09/26/17 03:07 O2 Sat by Pulse Oximetry 87 09/26/17 03:07 Temperature 98.2 F 09/26/17 03:07 Pulse Rate 125 09/26/17 06:20 Respiratory Rate 28 09/26/17 07:05 Blood Pressure 83/62 09/26/17 07:05 O2 Sat by Pulse Oximetry 97 09/26/17 06:20 Oxygen Delivery Oxygen Delivery Bipap Shortness of Breath/Dyspnea - Medical Records Medical records reviewed: Yes I reviewed the patient's medical records. - Lab Data Lab results reviewed: Yes I reviewed the patient's lab results. Result diagrams: 09/26/17 03:18 09/26/17 03:18 Lab Results 09/26/17 09/26/17 09/26/17 Range/Units 03:18 03:18 03:18 WBC 6.9 (4.3-11.1) K/mcL RBC 3.08 L (3.82-4.97) M/mcL Hgb 9.3 L (11.5-15.4) g/dL Hct 27.6 L (35.3-44.9) % MCV 89.6 (83.0-100.0) fL MCH 30.2 (28.0-33.3) pg MCHC 33.7 (31.6-35.5) g/dL RDW 14.2 (11.5-14.5) % Plt Count 255 (140-400) K/mcL MPV 9.6 (9.4-12.4) fL Immature Gran % 0.6 (0-4) % Seg Neutrophils % 86.3 % Lymphocytes % 6.6 % Monocytes % 6.1 % Eosinophils % 0.3 % Basophils % 0.1 % Neutrophils # 5.9 (1.6-8.9) K/mcL Lymphocytes # 0.5 L (0.6-4.6) K/mcL Monocytes # 0.4 (0.0-1.3) K/mcL Eosinophils # 0.0 (0.0-0.6) K/mcL Basophils # 0.0 (0.0-0.2) K/mcL PT 11.5 (9.4-12.1) Seconds INR 1.1 APTT 24.0 L (26.0-36.0) Seconds Sodium 122 L (136-145) mEq/L Potassium 3.8 (3.5-5.1) mEq/L Chloride 90 L (98-107) mEq/L Carbon Dioxide 23 (23-29) mEq/L BUN 12 (8-23) mg/dL Creatinine 0.51 L (0.60-1.20) mg/dL Est GFR ( Amer) > 60 (> 60) Est GFR (Non-Af Amer) > 60 (> 60) BUN/Creatinine Ratio 24 (6-26) Glucose 213 H (70-105) mg/dL Calculated Osmolality 260 L (280-300) Lactic Acid (0.5-2.2) mmol/L Calcium 8.2 L (8.6-10.3) mg/dL Troponin I (< 0.04) ng/mL B-Natriuretic Peptide (Less than 100) pg/mL 09/26/17 09/26/17 09/26/17 Range/Units 03:18 03:18 03:18 WBC (4.3-11.1) K/mcL RBC (3.82-4.97) M/mcL Hgb (11.5-15.4) g/dL Hct (35.3-44.9) % MCV (83.0-100.0) fL MCH (28.0-33.3) pg MCHC (31.6-35.5) g/dL RDW (11.5-14.5) % Plt Count (140-400) K/mcL MPV (9.4-12.4) fL Immature Gran % (0-4) % Seg Neutrophils % % Lymphocytes % % Monocytes % % Eosinophils % % Basophils % % Neutrophils # (1.6-8.9) K/mcL Lymphocytes # (0.6-4.6) K/mcL Monocytes # (0.0-1.3) K/mcL Eosinophils # (0.0-0.6) K/mcL Basophils # (0.0-0.2) K/mcL PT (9.4-12.1) Seconds INR APTT (26.0-36.0) Seconds Sodium (136-145) mEq/L Potassium (3.5-5.1) mEq/L Chloride (98-107) mEq/L Carbon Dioxide (23-29) mEq/L BUN (8-23) mg/dL Creatinine (0.60-1.20) mg/dL Est GFR ( Amer) (> 60) Est GFR (Non-Af Amer) (> 60) BUN/Creatinine Ratio (6-26) Glucose (70-105) mg/dL Calculated Osmolality (280-300) Lactic Acid 2.4 H (0.5-2.2) mmol/L Calcium (8.6-10.3) mg/dL Troponin I 0.85 H* (< 0.04) ng/mL B-Natriuretic Peptide 61 (Less than 100) pg/mL 09/26/17 Range/Units 05:59 WBC (4.3-11.1) K/mcL RBC (3.82-4.97) M/mcL Hgb (11.5-15.4) g/dL Hct (35.3-44.9) % MCV (83.0-100.0) fL MCH (28.0-33.3) pg MCHC (31.6-35.5) g/dL RDW (11.5-14.5) % Plt Count (140-400) K/mcL MPV (9.4-12.4) fL Immature Gran % (0-4) % Seg Neutrophils % % Lymphocytes % % Monocytes % % Eosinophils % % Basophils % % Neutrophils # (1.6-8.9) K/mcL Lymphocytes # (0.6-4.6) K/mcL Monocytes # (0.0-1.3) K/mcL Eosinophils # (0.0-0.6) K/mcL Basophils # (0.0-0.2) K/mcL PT (9.4-12.1) Seconds INR APTT (26.0-36.0) Seconds Sodium (136-145) mEq/L Potassium (3.5-5.1) mEq/L Chloride (98-107) mEq/L Carbon Dioxide (23-29) mEq/L BUN (8-23) mg/dL Creatinine (0.60-1.20) mg/dL Est GFR ( Amer) (> 60) Est GFR (Non-Af Amer) (> 60) BUN/Creatinine Ratio (6-26) Glucose (70-105) mg/dL Calculated Osmolality (280-300) Lactic Acid 0.9 (0.5-2.2) mmol/L Calcium (8.6-10.3) mg/dL Troponin I (< 0.04) ng/mL B-Natriuretic Peptide (Less than 100) pg/mL - Radiology Data Radiology results reviewed: Yes I reviewed the patient's radiology results. - EKG Data EKG attestation: Yes I reviewed and interpreted this EKG. EKG results narrative: EKG shows sinus tachycardia with ventricular rate of 123. Patient has no significant ST elevations or depressions. EKG was sinus tach compared to . Critical Care Time Critical Care Time: Yes Total Critical Care Time: 40 Attestation: Critical care performed: Time is exclusive of separately billable procedures. Time includes: direct patient care, patient reassessment, coordination of patient care, interpretation of data (laboratory data, radiology data, and respiratory data), review of patient's medical records, medical consultation and documentation of patient care. Procedures included in critical care time: Procedures excluded from critical care time: Attestation Statement - Attestation Attestation: I, Anil Domínguez MD, personally evaluated this patient and discussed their management with the resident physician. I reviewed the resident's note and agree with the documented findings, medical decision making, and plan of care. 62-year-old female presents to the emergency department for respiratory distress. Patient has a history of esophageal cancer causing obstruction of the esophagus which causes her to aspirate her secretions. The cancer also involves the trachea causing some tracheal obstruction. I saw this patient about 2-3 weeks ago with the same type symptoms. At that time she improved initially with BiPAP but then eventually had to be intubated. reports that patient was intubated for about 24 hours on her last admission. Since going home she has continued to have the noisy breathing and rapid breathing and rapid heart rate. He brought her in tonight because the breathing seemed to become worse and her oxygen saturation dropped down to about 70. Patient tells me that she does not want to be intubated and put back on a ventilator machine. She did just have chemotherapy about 3 days ago and also has had 2 radiation treatments. Patient placed on BiPAP here in the emergency department with improvement. On examination patient is a cachectic female in moderate respiratory distress. She is alert and oriented. There is no cyanosis or diaphoresis. Respirations or stridorous. Breath sounds are decreased bilaterally. No wheezes noted. Heart is regular and tachycardic. Abdomen soft and nontender with normal bowel sounds. Labs reviewed. Chest x-ray negative. CTA of the chest shows no evidence of pulmonary emboli. There is multifocal airspace disease consistent with pneumonia. The hospitalist, Dr. Lozano, was consulted and accepted admission of the patient.
[2017-09-26] MEDS ORDERED: 0.9 % Sodium Chloride 1,000 ML ONE (06:22)
[2017-09-26 07:21] LABS: ABG Base Excess -2 mEq/L (-2 to 3); ABG HCO3 22 mEq/L (21-27); ABG Oxygen Saturation 99 % (95-98); ABG PCO2 36 mmHg (35-45); ABG PH 7.41 pH Units (7.32-7.45); ABG PO2 128 mmHg (85-104); ABG TCO2 23 mEq/L (20-26)
[2017-09-26] MEDS ORDERED: Racepinephrine Neb 0.5 ML VIAL IH ONE ×2 (07:28→08:11)
[2017-09-26] MEDS ORDERED: Aztreonam 2,000 MG in Water for inj. (sterile) 20 ML 20 ML IVP SCH (08:00)
[2017-09-26] MEDS ORDERED: Vancomycin 750 MG in D5% in Water 250 ML IVPB SCH (08:00)
[2017-09-26] MEDS: Dexamethasone 4 MG/ML VIAL IVP SCH ×3 (08:48→23:56)
[2017-09-26] MEDS: Clindamycin 900 MG/50 ML 900 MG/50 ML IV.SOLN IVPB SCH ×3 (08:49→23:56)
[2017-09-26] MEDS: Vancomycin 750 MG in D5% in Water 250 ML IVPB SCH ×2 (08:49→20:43)
--- NOTE | 2017-09-26 09:13 | Event Note ---
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 I asked the patient with her in the presence of Nursing staff patient clearly said that she doesnt want intubation i also i told that she understands if she doesnt get intubate she will pass away patient understands that so the patient code status was changed to [id number] will do everything
[2017-09-26] MEDS ORDERED: Ipratropium/Albuterol Neb 3 ML IH PRN (09:22)
--- NOTE | 2017-09-26 09:57 | Pulmonology History & Physical ---
<Ramon Gutierrez Jaxson - Last Filed: 09/26/17 11:02> Date of Encounter: 09/26/17 Time of Encounter: 07:10 Assessment and Plan (1) Severe sepsis Current visit: Yes Status: Acute Tachycardia, Tachypnea, hypotension, and lactate 2.4 (repeat 0.9) with suspected source of pneumonia Broad-spectrum antibiotics Blood and sputum cultures pending. Respiratory infection panel pending Received fluid bolus x2 in ED - will switch to albumin to maintain BP with watching for fluid overload On BiPAP, respiratory status concerning for decline - CODE status is [id number] (2) Aspiration pneumonia Current visit: Yes Status: Acute Suspected aspiration pneumonia with multifocal opacities on CT scan Will start aztreonam, clindamycin, and vancomycin Pt doing well on BiPAP Steroids and respiratory support NPO diet and speech consult Qualifiers: Aspiration pneumonia type: unspecified Laterality: right Lung location: lower lobe of lung Qualified Code(s): J69.0 - Pneumonitis due to inhalation of food and vomit (3) Elevated troponin Current visit: Yes Status: Acute Trop 0.85 - ECG shows sinus tach with PVCs Trend troponins (4) Esophageal cancer Current visit: Yes Status: Chronic Airway appears patent on CTA Oncology consult Qualifiers: Malignant neoplasm of esophagus location: unspecified location Qualified Code(s): C15.9 - Malignant neoplasm of esophagus, unspecified (5) Oropharyngeal cancer Current visit: Yes Status: Acute (6) Hypertension Current visit: No Status: Chronic Hold home meds Has been hypotensive - will give albumin Qualifiers: Hypertension type: essential hypertension Qualified Code(s): I10 - Essential (primary) hypertension (7) COPD (chronic obstructive pulmonary disease) Current visit: No Status: Chronic Qualifiers: COPD type: unspecified COPD Qualified Code(s): J44.9 - Chronic obstructive pulmonary disease, unspecified (8) DVT prophylaxis Current visit: Yes Status: Acute subq heparin History of Present Illness Chief complaint: Dyspnea HPI: Ms. 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 She was recently admitted to the hospital in August and reports she has been tachypnic since discharge. She checks her pulse ox periodically throughout the day at home and her O2 was down in the 70's after taking some ambien. She was placed on nonrebreather mask in the ED with improvement to O2 90's. She was intubated during her last hospitalization. She was then placed on BiPAP. The reports an increase in sputum production. A discussion in the ED resulted in a decision to not do compressions. At that time the patient and were in agreement to that if needed she would want to be intubated again. CTA of the chest showed no PE, but multifocal PNA. She was then admitted to the ICU. After thinking about the decision more, the patient and her decided they no longer wanted intubation if needed. Her CODE status was changed [id number]. The patient is now on BiPAP in the ICU. Her BP has been decreasing some, and fluids will be given. Past Med Surg Social Fam HX - Past Medical History Medical history: cancer, CVA, hypertension Psychiatric history: no psych history - Past Surgical History Surgical History: other - Social History Smoking Status: Former smoker Smokeless Tobacco Status: No Alcohol use: none Drug use: none Medications and Allergies Albuterol Sulfate [Albuterol Inhaler] 2 puff IH Q4HR PRN 07/02/17 [History] Acetaminophen [Tylenol] 1,000 mg PO Q6HR PRN 09/08/17 [History] Fluticasone/Salmeterol [Advair Hfa 45-21 Mcg Inhaler] 2 puff IH BID PRN #1 inh 09/08/17 [Rx] Ondansetron [Zofran] 8 mg PO Q8HR PRN 09/08/17 [History] Potassium Chloride Elixir [Potassium Chloride] 20 meq GTUBE DAILY 09/08/17 [ History] Prochlorperazine Maleate [Compazine] 10 mg PO Q8HR PRN 09/08/17 [History] Escitalopram [Lexapro] 20 mg PO DAILY 09/09/17 [History] Zolpidem [Ambien] 5 - 10 mg PO HS PRN 09/09/17 [History] Albuterol Neb [Proventil Neb] 2.5 mg IH Q4HR #30 vial.neb 09/24/17 [Rx] amLODIPine [Norvasc] 5 mg PO DAILY 09/26/17 [History] 3 Allergy/AdvReac Type Severity Reaction Status Date / Time Penicillins Allergy Rash Verified 09/20/17 10:48 Sulfa (Sulfonamide Allergy Rash Verified 09/20/17 10:48 Antibiotics) All Systems: ROS is negative for pertinent findings except as documented above in the HPI. Physical Examination Vital Signs: Vital Signs, Last 4 Hours Temp Pulse Resp BP Pulse Ox 09/26/17 09:00 115 27 85/56 99 09/26/17 08:00 116 29 88/55 98 09/26/17 07:53 102 09/26/17 07:05 28 83/62 09/26/17 07:00 98.7 F 102 35 143/81 97 General appearance: no acute distress Eyes: nonicteric ENT: oropharynx moist Effort: mildly labored Auscultation: bilateral: rales Cardiovascular: regular rate and rhythm Extremities: no cyanosis, no edema normal mental status, non-focal exam Results - Laboratory Findings CBC and BMP: 09/26/17 03:18 09/26/17 03:18 ABG ABG pH 7.41 pH Units (7.32-7.45) 09/26/17 07:17 ABG pCO2 36 mmHg (35-45) 09/26/17 07:17 ABG pO2 128 mmHg (85-104) H 09/26/17 07:17 ABG O2 Saturation 99 % (95-98) H 09/26/17 07:17 PT/INR, D-dimer PT 11.5 Seconds (9.4-12.1) 09/26/17 03:18 Abnormal lab findings: Abnormal lab results RBC 3.08 M/mcL (3.82-4.97) L 09/26/17 03:18 Hgb 9.3 g/dL (11.5-15.4) L 09/26/17 03:18 Hct 27.6 % (35.3-44.9) L 09/26/17 03:18 Lymphocytes # 0.5 K/mcL (0.6-4.6) L 09/26/17 03:18 APTT 24.0 Seconds (26.0-36.0) L 09/26/17 03:18 ABG pO2 128 mmHg (85-104) H 09/26/17 07:17 ABG O2 Saturation 99 % (95-98) H 09/26/17 07:17 Sodium 122 mEq/L (136-145) L 09/26/17 03:18 Chloride 90 mEq/L (98-107) L 09/26/17 03:18 Creatinine 0.51 mg/dL (0.60-1.20) L 09/26/17 03:18 Glucose 213 mg/dL (70-105) H 09/26/17 03:18 POC Glucose 134 (58-89) H 09/26/17 07:02 Calculated Osmolality 260 (280-300) L 09/26/17 03:18 Calcium 8.2 mg/dL (8.6-10.3) L 09/26/17 03:18 Troponin I 0.85 ng/mL (< 0.04) H* 09/26/17 03:18 <Albaro Cosby S - Last Filed: 09/26/17 19:28> Date of Encounter: 09/26/17 History of Present Illness HPI: Ms. Mratinez is a 62 year old female All Systems: A 10-system review of systems was performed and is negative for pertinent findings except as documented above in the HPI. Physical Examination Vital Signs: Vital Signs, Last 4 Hours Temp Pulse Resp BP Pulse Ox 09/26/17 18:00 125 22 94/61 96 09/26/17 17:00 126 24 96/60 94 09/26/17 16:00 123 24 117/71 96 09/26/17 15:37 117 09/26/17 15:00 98.7 F 117 26 99/61 95 Results - Laboratory Findings CBC and BMP: 09/26/17 03:18 09/26/17 03:18 ABG ABG pH 7.41 pH Units (7.32-7.45) 09/26/17 07:17 ABG pCO2 36 mmHg (35-45) 09/26/17 07:17 ABG pO2 128 mmHg (85-104) H 09/26/17 07:17 ABG O2 Saturation 99 % (95-98) H 09/26/17 07:17 PT/INR, D-dimer PT 11.5 Seconds (9.4-12.1) 09/26/17 03:18 Abnormal lab findings: Abnormal lab results RBC 3.08 M/mcL (3.82-4.97) L 09/26/17 03:18 Hgb 9.3 g/dL (11.5-15.4) L 09/26/17 03:18 Hct 27.6 % (35.3-44.9) L 09/26/17 03:18 Lymphocytes # 0.5 K/mcL (0.6-4.6) L 09/26/17 03:18 APTT 24.0 Seconds (26.0-36.0) L 09/26/17 03:18 ABG pO2 128 mmHg (85-104) H 09/26/17 07:17 ABG O2 Saturation 99 % (95-98) H 09/26/17 07:17 Sodium 122 mEq/L (136-145) L 09/26/17 03:18 Chloride 90 mEq/L (98-107) L 09/26/17 03:18 Creatinine 0.51 mg/dL (0.60-1.20) L 09/26/17 03:18 Glucose 213 mg/dL (70-105) H 09/26/17 03:18 POC Glucose 134 (58-89) H 09/26/17 07:02 Calculated Osmolality 260 (280-300) L 09/26/17 03:18 Calcium 8.2 mg/dL (8.6-10.3) L 09/26/17 03:18 Troponin I 2.34 ng/mL (< 0.04) H* 09/26/17 11:30 - Attending Attestation I saw and evaluated this patient and my medical decision-making was reviewed with the Resident Physician. I agree with the documented findings, disposition and treatment plan as described except to the extent set forth below. We independently had [id number] contact with the patient. Patient seen and examined at bedside Labs, radiology, chart personally reviewed. Management was reviewed during multidisciplinary critical care rounds. 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 Will call oncology if they can do anything about it like radiation will help in reducing the esophageal tumour burden . Patient decided not to get intubated will give some decadron , racemic epinephrine prn . To start on broad spectrum antibiotics with anaerobic coverage .Patient is doing well on BIPAP Cards: Borderline blood pressure volume depletion vs septic shock colloid prn if needed will start on vasopressors NSTEMI started on heparin Cardiology consulted . FEN-GI: NPO feeding through J tube Renal:labs and output reviewed ID:Aspiration pneumonia broad spectrum antibiotics added clindamycin for anaerobic coverage Heme/Onc: Oncology consulted if anything can be done for compressing esophageal tumour. Endo: Glucose Monitored Integ/MSK: Skin Care per routine ICU Nursing Protocol to prevent ulcers. Lines: All lines examined without evidence of infection : Dispo: critically ill CODE:[id number] -DNI
[2017-09-26] MEDS ORDERED: *HR* Heparin 5,000 UNIT/ML VIAL SQ SCH (10:30)
[2017-09-26] MEDS: Albuterol 2.5 MG/3 ML NEBULIZER IH SCH ×6 (10:31→20:27)
[2017-09-26] MEDS: Albumin 25% 25gram/100mL 25 GM/100 ML IV.SOLN IVPB SCH ×2 (11:00→17:04)
[2017-09-26] MEDS ORDERED: Heparin 25,000 UNIT/500 ML D5W 25,000 UNIT/500 ML BAG IVC SCH (12:30)
[2017-09-26] MEDS ORDERED: Albumin 25% 25gram/100mL 25 GM/100 ML IV.SOLN IVPB SCH (16:00)
[2017-09-26] MEDS ORDERED: Ondansetron Oral Soln 2 MG/2.5 ML ORAL.SYG GTUBE PRN (16:39)
[2017-09-26] MEDS: Aztreonam 2,000 MG in Water for inj. (sterile) 20 ML 20 ML IVP SCH ×2 (17:03→23:55)
[2017-09-26 19:23] LABS: Adenovirus Not Detected (Not Detect); Bordetella Pertussis Not Detected (Not Detect); Chlamydophila pneumoniae Not Detected (Not Detect); Coronavirus 229E Not Detected (Not Detect); Coronavirus HKU1 Not Detected (Not Detect); Coronavirus NL63 Not Detected (Not Detect); Coronavirus OC43 Not Detected (Not Detect); Human Metapneumovirus Not Detected (Not Detect); Human Rhinovirus/Enterovirus Not Detected (Not Detect); Influenza A Subtype 2009 H1 Not Detected (Not Detect); Influenza A Untypeable Not Detected (Not Detect); Influenza B Not Detected (Not Detect); Mycoplasma pneumoniae Not Detected (Not Detect); Parainfluenza Virus 1 Not Detected (Not Detect); Parainfluenza Virus 2 Not Detected (Not Detect); Parainfluenza Virus 3 Not Detected (Not Detect); Parainfluenza Virus 4 Not Detected (Not Detect); Respiratory Syncytial Virus Not Detected (Not Detect)
[2017-09-26] MEDS ORDERED: *HR* Heparin 5,000 UNIT/ML VIAL IVP PRN ×2 (21:14)
[2017-09-27] MEDS: Albuterol 2.5 MG/3 ML NEBULIZER IH SCH ×4 (03:55→11:11)
[2017-09-27 04:37] LABS: INR 1.1; Prothrombin Time 11.5 Seconds (9.4-12.1)
[2017-09-27 04:39] LABS: Activated Partial Thrombo Time 39.5 Seconds (26.0-36.0)
[2017-09-27 04:48] LABS: Hematocrit 21.5 % (35.3-44.9); Immature Platelets 4.5 % (1.1-6.1); Lymphocytes # 0.3 K/mcL (0.6-4.6); Mean Corpuscular HGB Conc 33.5 g/dL (31.6-35.5); Mean Corpuscular Hemoglobin 30.3 pg (28.0-33.3); Mean Corpuscular Volume 90.3 fL (83.0-100.0); Mean Platelet Volume 9.9 fL (9.4-12.4); Platelet Count 237 K/mcL (140-400); Red Blood Count 2.38 M/mcL (3.82-4.97); Red Cell Distribution Width 14.6 % (11.5-14.5)
[2017-09-27 04:50] LABS: BUN/Creatinine Ratio 35 (6-26); Blood Urea Nitrogen 14 mg/dL (8-23); Calcium 8.4 mg/dL (8.6-10.3); Carbon Dioxide 24 mEq/L (23-29); Chloride 97 mEq/L (98-107); Glucose 135 mg/dL (70-105); Osmolality,Calculated 267 (280-300); Potassium 3.9 mEq/L (3.5-5.1); Sodium 127 mEq/L (136-145); eGFR For African Americans > 60 (> 60); eGFR For Non-African Americans > 60 (> 60)
[2017-09-27 05:00] LABS: Hemoglobin 7.2 g/dL (11.5-15.4)
[2017-09-27 05:26] LABS: ABG Base Excess -2 mEq/L (-2 to 3); ABG HCO3 22 mEq/L (21-27); ABG Oxygen Saturation 95 % (95-98); ABG PCO2 32 mmHg (35-45); ABG PH 7.45 pH Units (7.32-7.45); ABG PO2 69 mmHg (85-104); ABG TCO2 23 mEq/L (20-26)
[2017-09-27 06:31] LABS: Monocytes # 0.1 K/mcL (0.0-1.3); Platelet Estimate Normal (Normal)
--- NOTE | 2017-09-27 07:09 | Pulmonology Progress Note ---
<Peter Dasilva - Last Filed: 09/27/17 10:59> Date of Encounter: 09/27/17 Time of Encounter: 07:09 Assessment and Plan (1) Severe sepsis Current Visit: Yes Status: Acute Likely associated with pneumonia. The patient is on broad spectrum antibiotics at this time. The patient's lactate has continued to decline. The patient's blood pressures have remained stable. The patient has been responsive to albumin. Blood culture demonstrate no growth and sputum cultures demonstrate gram-positive cocci with likely de-escalation of antibiotic's after results of susceptibility from sputum culture. (2) Respiratory distress Current Visit: No Status: Acute Patient did well overnight on BiPAP. She is on nasal cannula at this time without any respiratory distress. She is resting comfortably in the room. We will continue to monitor patient's respiratory status with BiPAP as necessary. (3) Pneumonia Current Visit: Yes Status: Acute Qualifiers: Pneumonia type: due to unspecified organism Laterality: unspecified laterality Lung location: unspecified part of lung Qualified Code(s): J18.9 - Pneumonia, unspecified organism (4) Anemia Current Visit: Yes Status: Acute The patient has a chronic anemia with baseline around 9. After being placed on a heparin drip yesterday, roughly 24 hours ago, the patient's hemoglobin is now 7.2. We will repeat the patient's hemoglobin discontinue the heparin drip at this time. No active bleeding noted. The patient has had no episodes of hemoptysis, no melena, no hematochezia, no hematemesis. Repeat hemoglobin continued to decline. At this time we will transfuse the patient with 2 units of packed red blood cells. The patient will have SCDs ordered and we will repeat hematocrit and hemoglobin every [address] of the abdomen and pelvis will also be performed to make sure there is no intra-abdominal source of bleeding. Qualifiers: Anemia type: unspecified type Qualified Code(s): D64.9 - Anemia, unspecified (5) Elevated troponin Current Visit: Yes Status: Acute Patient's troponin has continued to trend downward. We will continue to monitor. The patient has a consult to cardiology. She has remained tachycardic with intermittent PVCs. No active chest pain at this time. No ST elevation noted on EKG. The patient has remained on a heparin drip over the course of the past 24 hours. (6) Esophageal cancer Current Visit: Yes Status: Chronic Qualifiers: Malignant neoplasm of esophagus location: unspecified location Qualified Code(s): C15.9 - Malignant neoplasm of esophagus, unspecified (7) COPD (chronic obstructive pulmonary disease) Current Visit: No Status: Chronic Qualifiers: COPD type: unspecified COPD Qualified Code(s): J44.9 - Chronic obstructive pulmonary disease, unspecified (8) Oropharyngeal cancer Current Visit: Yes Status: Acute Subjective Principal diagnosis: Respiratory distress, pneumonia, esophageal cancer Interval history: Patient has done well overnight on BiPAP. She is awake and off BiPAP at this time in no acute respiratory distress. She is answering questions and following commands. The patient's troponin has continued to trend downward. The patient's hemoglobin was noted to be lower this morning at 7.2 down from 9.3 yesterday. We will continue to monitor patient's hemoglobin. The patient' s hyponatremia has continued to improve as well with today's sodium level 127 up from 122. Objective PUL Vital signs: Last Vital Signs Temp 98.2 F 09/27/17 04:00 Pulse 119 09/27/17 04:00 Resp 18 09/27/17 04:00 BP 101/63 09/27/17 04:00 Pulse Ox 94 09/27/17 06:14 General appearance: no acute distress, alert Eyes: nonicteric Effort: normal Auscultation: bilateral: diminished breath sounds Cardiovascular: other (Tachycardic and regular rhythm) Gastrointestinal: soft, non-tender, other (Feeding tube in place.) Integumentary: normal Extremities: no cyanosis, no edema, no clubbing Musculoskeletal: no deformities normal mental status, non-focal exam, other (Difficulty with speech which is apparently baseline since worsening of tumor of soft palate.) Results - Laboratory Findings CBC and BMP: 09/27/17 09:58 09/27/17 04:25 ABG ABG pH 7.45 pH Units (7.32-7.45) 09/27/17 05:22 ABG pCO2 32 mmHg (35-45) L 09/27/17 05:22 ABG pO2 69 mmHg (85-104) L 09/27/17 05:22 ABG O2 Saturation 95 % (95-98) 09/27/17 05:22 PT/INR, D-dimer PT 11.5 Seconds (9.4-12.1) 09/27/17 04:25 Abnormal lab findings: Abnormal lab results RBC 2.38 M/mcL (3.82-4.97) L 09/27/17 04:25 Hgb 7.2 g/dL (11.5-15.4) L D 09/27/17 04:25 Hct 21.5 % (35.3-44.9) L 09/27/17 04:25 RDW 14.6 % (11.5-14.5) H 09/27/17 04:25 Band Neutrophils % 24.0 % (0-4) H 09/27/17 04:25 Lymphocytes # 0.3 K/mcL (0.6-4.6) L 09/27/17 04:25 APTT 39.5 Seconds (26.0-36.0) H 09/27/17 04:25 ABG pCO2 32 mmHg (35-45) L 09/27/17 05:22 ABG pO2 69 mmHg (85-104) L 09/27/17 05:22 Sodium 127 mEq/L (136-145) L 09/27/17 04:25 Chloride 97 mEq/L (98-107) L 09/27/17 04:25 Creatinine 0.40 mg/dL (0.60-1.20) L 09/27/17 04:25 BUN/Creatinine Ratio 35 (6-26) H 09/27/17 04:25 Glucose 135 mg/dL (70-105) H 09/27/17 04:25 POC Glucose 134 (58-89) H 09/26/17 07:02 Calculated Osmolality 267 (280-300) L 09/27/17 04:25 Calcium 8.4 mg/dL (8.6-10.3) L 09/27/17 04:25 Troponin I 1.46 ng/mL (< 0.04) H* 09/27/17 04:25 - Microbiology Findings Microbiology Findings: Microbiology, Last 48 Hours 09/26/17 15:22 Sputum Culture - Preliminary Sputum - Clinical Findings Intake & Output: Intake & Output 09/26/17 09/26/17 09/27/17 15:59 23:59 07:59 Intake Total 300 / 300 438 / 438 175 / 175 Balance 300 / 300 438 / 438 175 / 175 Consult Discharge Plan - Plan Referrals: Marilee Nettles DO [Primary Care Provider] - - Attending Attestation I examined this patient and my medical decision-making was reviewed with the Resident Physician. I agree with the documented findings, disposition and treatment plan as described except to the extent set forth below. <NoelJosé W - Last Filed: 09/27/17 14:22> Date of Encounter: 09/27/17 Objective PUL Vital signs: Last Vital Signs Temp 98.9 F 09/27/17 07:30 Pulse 120 09/27/17 09:00 Resp 22 09/27/17 09:00 BP 105/56 09/27/17 09:00 Pulse Ox 97 09/27/17 09:00 Results - Laboratory Findings CBC and BMP: 09/27/17 11:12 09/27/17 04:25 ABG ABG pH 7.45 pH Units (7.32-7.45) 09/27/17 05:22 ABG pCO2 32 mmHg (35-45) L 09/27/17 05:22 ABG pO2 69 mmHg (85-104) L 09/27/17 05:22 ABG O2 Saturation 95 % (95-98) 09/27/17 05:22 PT/INR, D-dimer PT 11.5 Seconds (9.4-12.1) 09/27/17 04:25 Abnormal lab findings: Abnormal lab results RBC 2.38 M/mcL (3.82-4.97) L 09/27/17 04:25 Hgb 7.2 g/dL (11.5-15.4) L D 09/27/17 04:25 Hct 21.5 % (35.3-44.9) L 09/27/17 04:25 RDW 14.6 % (11.5-14.5) H 09/27/17 04:25 Band Neutrophils % 24.0 % (0-4) H 09/27/17 04:25 Lymphocytes # 0.3 K/mcL (0.6-4.6) L 09/27/17 04:25 APTT 39.5 Seconds (26.0-36.0) H 09/27/17 04:25 ABG pCO2 32 mmHg (35-45) L 09/27/17 05:22 ABG pO2 69 mmHg (85-104) L 09/27/17 05:22 Sodium 127 mEq/L (136-145) L 09/27/17 04:25 Chloride 97 mEq/L (98-107) L 09/27/17 04:25 Creatinine 0.40 mg/dL (0.60-1.20) L 09/27/17 04:25 BUN/Creatinine Ratio 35 (6-26) H 09/27/17 04:25 Glucose 135 mg/dL (70-105) H 09/27/17 04:25 POC Glucose 134 (58-89) H 09/26/17 07:02 Calculated Osmolality 267 (280-300) L 09/27/17 04:25 Calcium 8.4 mg/dL (8.6-10.3) L 09/27/17 04:25 Troponin I 1.46 ng/mL (< 0.04) H* 09/27/17 04:25 - Microbiology Findings Microbiology Findings: Microbiology, Last 48 Hours 09/26/17 15:22 Sputum Culture - Preliminary Sputum - Clinical Findings Intake & Output: Intake & Output 09/26/17 09/27/17 09/27/17 23:59 07:59 15:59 Intake Total 438 / 438 175 / 175 40 / 40 Balance 438 / 438 175 / 175 40 / 40 - Attending Attestation I examined this patient and my medical decision-making was reviewed with the Resident Physician. I agree with the documented findings, disposition and treatment plan as described except to the extent set forth below. We independently had [id number] contact with the patient I spent 40min of Critical Care time with this patient. It involved decision making of high complexity to assess, manipulate, and support vital organ system failure and/or to prevent further life threatening deterioration of the patient' s condition. The time involved in the performance of separately reportable procedures was not counted toward critical care time. 62-year-old woman with a history of esophageal and head and neck carcinoma who was brought to the ICU because of pneumonia with impending respiratory failure that responded to treatment with BiPAP she had been borderline hypotensive that responded to colloid challenge she also had an STEMI on ACS protocol. When I evaluated the patient during morning rounds and then on multidisciplinary rounding she was overall doing very well she been weaned off BiPAP support and was comfortable otherwise hemodynamically stable. I was called to the bedside shortly after multidisciplinary rounding to reevaluate the patient and at that point she had noted to have worsening hypoxia and increased work of breathing. She was given bronchodilator therapy and steroids and placed on BiPAP with improvement in oxygen saturation however shortly thereafter she started having evidence of stridor and worsening respiratory failure BiPAP was adjusted with improvement in oxygen saturation with patient was in respiratory extremis by this point very labored breathing and very uncomfortable. Additional doses of steroids were given at which point I spoke with the and explained that without endotracheal intubation at this point we would not expect that the patient would survive we had a conversation at bedside readdressing goals of care and he was certain after conversation with the yesterday that she did not want to proceed with intubation and her CODE STATUS had been changed after speaking with the tailer in yesterday. The patient was unable to participate in giving a history and/or making treatment decisions. The discussion was necessary for determining treatment decision. This discussion took place in the [ICU]. The total meeting time was [20minutes] in aggregate At this point I recommended transition to full comfort measures given degree of respiratory distress and narcotics were administered along with anxiolytics which was later given by continuous infusion with overall improvement in respiratory distress however patient continued to have audible stridor I was at the bedside with the patient and the (Donald) and offered my emotional support with patient's impending demise anticipated. I offered spiritual support with the [facility] [address] [employer] service and he declined. CODE STATUS was changed to reflect goals of care transitioned to comfort measures only
[2017-09-27] MEDS: Vancomycin 750 MG in D5% in Water 250 ML IVPB SCH (08:54)
[2017-09-27] MEDS: Dexamethasone 10 MG/ML VIAL IVP SCH ×2 (09:13→12:00)
[2017-09-27 10:06] LABS: Hematocrit 20.4 % (35.3-44.9)
[2017-09-27 10:09] LABS: Hemoglobin 6.9 g/dL (11.5-15.4)
--- NOTE | 2017-09-27 10:13 | Cardiology Consult Note ---
Date of Encounter: 09/27/17 Time of Encounter: 10:13 Assessment and Plan (1) Elevated troponin Current Visit: Yes Status: Acute Troponins 0.85, 2.34, 1.78, 1.46--now downtrending and in setting of PNA, sepsis , hypoxia and significant HGB drop--9.3 to 6.9. Suspect demand ischemia as culprit, nondiagnostic for ACS. Heparin gtt stopped due to decrease in HGB. Pt denies chest pain. No CAD hx. I discussed with pt goals of care given that she is DNR-CCA-DNI. LHC was briefly discussed, which she stated she would not want. R/B/A discussed. Echo to evaluate structure and function. Further recommendations to follow. Discussion w patient/family: The assessment and plan as outlined above was discussed with the patient and/or family members who expressed understanding and agreement. All questions were answered. Thank you for involving us in the care of your patient. Please call with any questions. I will discuss all the above with Dr. Duffy and make changes as necessary. History of Present Illness Consult date: 09/27/17 Requesting physician: Ramon Gutierrez Consult reason: Elevated troponins Chief complaint: dyspnea History of present illness: Ms. 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 She checks her pulse ox periodically throughout the day at home and her O2 was down in the 70's, placed on nonrebreather mask in the ED with improvement to O2 90's. Decision was made to change code status to DNR-CCA-DNI. CTA showed multifocal PNA. She is currently being treated for sepsis and PNA. Troponins 0.85, 2.34, 1.78, 1.46 and cardiology was consulted for further recommendations. Pt denies chest pain or any CAD hx. Initially was started on heparin gtt, but HGB dropped from 9.3. to 6.9 this AM and gtt was stopped. Past Med Surg Social Fam HX - Past Medical History Medical history: cancer, CVA, hypertension Psychiatric history: no psych history - Past Surgical History Surgical History: other - Social History Smoking Status: Former smoker Smokeless Tobacco Status: No Alcohol use: none Drug use: none Medications and Allergies Albuterol Sulfate [Albuterol Inhaler] 2 puff IH Q4HR PRN 07/02/17 [History] Acetaminophen [Tylenol] 1,000 mg PO Q6HR PRN 09/08/17 [History] Fluticasone/Salmeterol [Advair Hfa 45-21 Mcg Inhaler] 2 puff IH BID PRN #1 inh 09/08/17 [Rx] Ondansetron [Zofran] 8 mg PO Q8HR PRN 09/08/17 [History] Potassium Chloride Elixir [Potassium Chloride] 20 meq GTUBE DAILY 09/08/17 [ History] Prochlorperazine Maleate [Compazine] 10 mg PO Q8HR PRN 09/08/17 [History] Escitalopram [Lexapro] 20 mg PO DAILY 09/09/17 [History] Zolpidem [Ambien] 5 - 10 mg PO HS PRN 09/09/17 [History] Albuterol Neb [Proventil Neb] 2.5 mg IH Q4HR #30 vial.neb 09/24/17 [Rx] amLODIPine [Norvasc] 5 mg PO DAILY 09/26/17 [History] 3 Allergy/AdvReac Type Severity Reaction Status Date / Time Penicillins Allergy Rash Verified 09/20/17 10:48 Sulfa (Sulfonamide Allergy Rash Verified 09/20/17 10:48 Antibiotics) All Systems Review: A 10-system review of systems was performed and is negative for pertinent findings except as documented above in the HPI. - Cardiovascular Cardiovascular: as per HPI, dyspnea at rest, dyspnea on exertion - Respiratory Respiratory: cough, dyspnea Physical Examination Vital Signs, Last 4 Hours Temp Pulse Resp BP Pulse Ox 09/27/17 09:00 120 22 105/56 97 09/27/17 08:00 124 24 101/57 93 09/27/17 07:58 124 09/27/17 07:30 98.9 F 24 102/62 91 09/27/17 07:00 98.9 F 113 20 100/60 91 09/27/17 06:14 94 Vital Signs Temp Pulse Resp BP Pulse Ox 09/27/17 09:00 120 22 105/56 97 09/27/17 08:00 124 24 101/57 93 09/27/17 07:58 124 09/27/17 07:30 98.9 F 24 102/62 91 09/27/17 07:00 98.9 F 113 20 100/60 91 09/27/17 06:14 94 09/27/17 04:00 98.2 F 119 18 101/63 100 09/27/17 03:55 21 92/60 100 09/27/17 01:56 22 89/57 97 09/27/17 00:07 98.2 F 123 18 107/71 100 09/27/17 00:00 30 97 09/26/17 20:28 30 97 09/26/17 20:00 98.3 F 120 18 99/57 95 09/26/17 18:00 125 22 94/61 96 09/26/17 17:00 126 24 96/60 94 09/26/17 16:00 123 24 117/71 96 09/26/17 15:49 20 94/61 94 09/26/17 15:37 117 09/26/17 15:00 98.7 F 117 26 99/61 95 09/26/17 14:15 20 94/61 100 09/26/17 14:00 112 24 89/56 99 09/26/17 13:00 114 22 94/60 99 09/26/17 12:00 111 23 92/63 100 09/26/17 11:38 109 09/26/17 11:19 21 72/47 100 09/26/17 11:00 98.0 F 109 24 89/62 96 Intake and Output 09/26/17 09/27/17 09/27/17 23:59 07:59 15:59 Intake Total 438 / 438 175 / 175 40 / 40 Balance 438 / 438 175 / 175 40 / 40 Intake: IV Fluids 438 / 438 175 / 175 Heparin 25,000 UNIT/500 ML D5W 118 / 118 105 / 105 25,000 unit In 500 ml @ 12 UNIT /KG/HR 12.192 mls/hr IVC .Q24H [facility] Rx#:[id number] Azactam 2,000 MG In Water for 20 20 / 20 inj. (sterile) 20 ML @ 300 mls/ hr IVP Q8HR [facility] Rx#:[id number] Cleocin Premix 900 MG/50 ML 900 50 / 50 50 / 50 mg In 50 ml @ 50 mls/hr IVPB Q8HR [facility] Rx#:[id number] Vancocin 750 MG In Dextrose 5% 250 / 250 250 ML @ 250 mls/hr IVPB Q12H [facility] Rx#:[id number] Free Water 40 / 40 Other: # Urine Diapers 1 General: Conversant, No Apparent Distress HEENT: Atraumatic, Normocephaly, Mucus Membranes Moist Neck: No JVD, Normal carotid pulses Cardiac: Reg Rate and Rhythm, Normal S1 and S2, No Murmur Lungs: Other (rhonchi throughout) Neuro: Alert and responsive, No focal deficits noted Abdomen: Soft, Non-Tender Skin: No rashes noted on visualized skin Musculoskeletal: No Chest Wall Tenderness Extremities: No Clubbing, No Cyanosis, No Edema, Normal Pulses Results 09/27/17 09:58 09/27/17 04:25 Lab Results 09/26/17 09/26/17 09/26/17 11:30 20:30 20:30 WBC Hgb Hct Plt Count INR APTT 43.3 H D Sodium Potassium Chloride Carbon Dioxide BUN Creatinine Glucose Calcium Troponin I 2.34 H* 1.78 H* 09/27/17 09/27/17 09/27/17 04:25 04:25 04:25 WBC 6.4 Hgb 7.2 L D Hct 21.5 L Plt Count 237 INR 1.1 APTT 39.5 H Sodium 127 L Potassium 3.9 Chloride 97 L Carbon Dioxide 24 BUN 14 Creatinine 0.40 L Glucose 135 H Calcium 8.4 L Troponin I 09/27/17 09/27/17 04:25 09:58 WBC Hgb 6.9 L Hct 20.4 L Plt Count INR APTT Sodium Potassium Chloride Carbon Dioxide BUN Creatinine Glucose Calcium Troponin I 1.46 H* Short CBC 09/27/17 09/27/17 Range/Units 09:58 04:25 WBC 6.4 (4.3-11.1) K/mcL Hgb 6.9 L 7.2 L D (11.5-15.4) g/dL Hct 20.4 L 21.5 L (35.3-44.9) % Plt Count 237 (140-400) K/mcL Neutrophils # 6.0 (1.6-8.9) K/mcL BMP 09/27/17 Range/Units 04:25 Sodium 127 L (136-145) mEq/L Potassium 3.9 (3.5-5.1) mEq/L Chloride 97 L (98-107) mEq/L Carbon Dioxide 24 (23-29) mEq/L BUN 14 (8-23) mg/dL Creatinine 0.40 L (0.60-1.20) mg/dL Glucose 135 H (70-105) mg/dL Calcium 8.4 L (8.6-10.3) mg/dL Cardiac Enzymes 09/27/17 09/26/17 09/26/17 Range/Units 04:25 20:30 11:30 Troponin I 1.46 H* 1.78 H* 2.34 H* (< 0.04) ng/mL Active Medications Acetaminophen (Tylenol Susp) 1,000 mg GTUBE Q6HR PRN PRN Reason: Headache Stop: 03/28/18 16:42 Last Admin: 09/27/17 04:37 Dose: 1,000 mg Albuterol Sulfate (Proventil Neb) 2.5 mg IH [id number] [facility] PRN Reason: Protocol Stop: 03/28/18 16:01 Last Admin: 09/27/17 07:30 Dose: 2.5 mg Albuterol/Ipratropium (Duoneb) 3 ml IH [id number] PRN PRN Reason: Shortness Of Breath/Wheezing Stop: 03/28/18 09:23 Dexamethasone (Decadron) 10 mg IVP Q8HR [facility] Stop: 09/28/17 00:01 Last Admin: 09/27/17 09:13 Dose: 10 mg Vancomycin HCl 750 mg/ (Dextrose) 250 mls @ 250 mls/hr IVPB Q12H [facility] Stop: 03/28/18 09:01 Last Admin: 09/27/17 08:54 Dose: 250 mls/hr Clindamycin Phosphate/Dextrose (Cleocin Premix 600 Mg/50 Ml) 600 mg in 50 mls @ 50 mls/hr IVPB Q8HR [facility] Stop: 03/29/18 16:01 Ondansetron HCl (Zofran Oral Soln) 8 mg GTUBE Q8HR PRN PRN Reason: Nausea Stop: 03/28/18 16:40 Zolpidem Tartrate (Ambien) 5 mg GTUBE HS PRN; Protocol PRN Reason: Insomnia Stop: 03/28/18 16:40 Last Admin: 09/26/17 20:50 Dose: 5 mg - EKG Interpretation EKG results cardiology: personally reviewed, other (12 hr tele AVG HR 115, sinus tach, no significant pauses or arrhythmias) Consult Discharge Plan - Plan Referrals: Marilee Nettles DO [Primary Care Provider] -
[2017-09-27] MEDS ORDERED: *HR* LORazepam 1 MG TABLET PO ONE (11:20)
[2017-09-27 11:23] LABS: Hematocrit 24.5 % (35.3-44.9)
[2017-09-27] MEDS ORDERED: *HR* LORazepam 2 MG/ML VIAL IVP ONE (11:30)
[2017-09-27] MEDS ORDERED: *HR* LORazepam 2 MG/ML VIAL ONE (11:30)
[2017-09-27] MEDS ORDERED: *HR* OxyCODONE Immed Rel 5 MG TABLET PO PRN (11:30)
[2017-09-27] MEDS ORDERED: *HR* Morphine 2 MG/ML SYRINGE ONE ×2 (11:31→11:36)
[2017-09-27] MEDS ORDERED: *HR* Morphine 2 MG/ML SYRINGE IVP PRN (11:35)
[2017-09-27] MEDS ORDERED: *HR* LORazepam 2 MG/ML VIAL IVP PRN (11:43)
[2017-09-27] MEDS ORDERED: Atropine Sulfate 1% 40 DROP/2 ML BOTTLE SL PRN (11:43)
[2017-09-27] MEDS ORDERED: OXYCODONE Oral CONC 10 MG/0.5 ML ORAL.SYG SL PRN ×2 (11:45→18:39)
[2017-09-27] MEDS: FentaNYL (PF) 1,000 MCG in 0.9 % Sodium Chloride 80 ML IVC SCH ×2 (12:30→17:49)
[2017-09-27] MEDS ORDERED: Aminoglycoside Consult 1 EACH MC ONE (13:38)
[2017-09-27] MEDS ORDERED: Glycopyrrolate 0.2 MG/ML VIAL IVP PRN (15:26)
[2017-09-27] MEDS ORDERED: Scopolamine Patch 1.5 MG PATCH.TD72 TD SCH (15:30)
--- NOTE | 2017-09-27 15:39 | Palliative - Consult Note ---
Date of Encounter: 09/27/17 Time of Encounter: 15:55 - Assessment and Plan (1) Anxiety Current Visit: Yes Status: Acute Assessment and plan: Continue Lorazepam and titrate as needed. (2) Copious oral secretions Current Visit: Yes Status: Acute Assessment and plan: Continue Atropine drops. Add Scopolamine patch and IV Robinul if needed. (3) Dyspnea Current Visit: No Status: Acute Assessment and plan: Remains on Fentanyl drip currently at 150mcg/hr. Continue and titrate as needed. Qualifiers: Dyspnea type: unspecified Qualified Code(s): R06.00 - Dyspnea, unspecified (4) Counseling regarding advanced care planning and goals of care Current Visit: Yes Status: Acute Assessment and plan: Patient at bedside. Tearful - provided emotional support. States that his children too far away and will not be coming. Discussed transition to palliative unit - would rather stay in ICU for now, but understands if they need the bed, they will need to transfer. If transfers out, she will need to remain on hospitalist service. Will continue to follow clinical course. Doubtful she will survive long. (5) Esophageal cancer Current Visit: Yes Status: Chronic Qualifiers: Malignant neoplasm of esophagus location: unspecified location Qualified Code(s): C15.9 - Malignant neoplasm of esophagus, unspecified (6) Nasopharyngeal cancer Current Visit: No Status: Chronic Palliative-CN HPI - Data of Consult Requesting Physician: Albaro Cosby MD Primary Care Provider: John Collazo - Consult Narrative History of present illness: Ms. Martinez is a 62 year old female known to the palliative care team from a previous admission, who was admitted with increasing shortness of breath. She has history of esophageal as well as soft palate tumor, and is followed by [facility]. She had recent admission for aspiration pneumonia, and was intubated during that stay, but did extubate successfully and she was stable and discharged home with . I had actually saw her during that visit, and had goals of care discussion, no decisions made during that visit - pt and wanted to discuss at home. This visit, she was admitted to ICU , originally pt/ ok with intubation, however, discussions were held over weekend with staker surveying, and pt declined intubation. Code status at that time was DNR/DNI per patient request. As of this am, she was alert and watching tv, moving herself around in bed, and later am, had distress, hemoglobin dropped, and increased resp distress. She was placed on bipap for a time, and oxygen levels continued to decrease. Patient's Donald at bedside. They ultimately decided to transition to comfort care only (DNRCC) , and at bedside expecting her to pass away during this hospitalization. CC: Albaro Cosby MD Past Med Surg Social Fam HX - Past Medical History Medical history: cancer, CVA, hypertension Psychiatric history: no psych history - Past Surgical History Surgical History: other - Social History Smoking Status: Former smoker Smokeless Tobacco Status: No Alcohol use: none Drug use: none Medications and Allergies Albuterol Sulfate [Albuterol Inhaler] 2 puff IH Q4HR PRN 07/02/17 [History] Acetaminophen [Tylenol] 1,000 mg PO Q6HR PRN 09/08/17 [History] Fluticasone/Salmeterol [Advair Hfa 45-21 Mcg Inhaler] 2 puff IH BID PRN #1 inh 09/08/17 [Rx] Ondansetron [Zofran] 8 mg PO Q8HR PRN 09/08/17 [History] Potassium Chloride Elixir [Potassium Chloride] 20 meq GTUBE DAILY 09/08/17 [ History] Prochlorperazine Maleate [Compazine] 10 mg PO Q8HR PRN 09/08/17 [History] Escitalopram [Lexapro] 20 mg PO DAILY 09/09/17 [History] Zolpidem [Ambien] 5 - 10 mg PO HS PRN 09/09/17 [History] Albuterol Neb [Proventil Neb] 2.5 mg IH Q4HR #30 vial.neb 09/24/17 [Rx] amLODIPine [Norvasc] 5 mg PO DAILY 09/26/17 [History] 3 Allergy/AdvReac Type Severity Reaction Status Date / Time Penicillins Allergy Rash Verified 09/20/17 10:48 Sulfa (Sulfonamide Allergy Rash Verified 09/20/17 10:48 Antibiotics) ROS unobtainable: due to mental status Palliative Care-Exam - Constitutional Vitals: Temp Pulse Resp BP Pulse Ox 97.9 F 121 30 90/47 99 09/27/17 12:00 09/27/17 12:41 09/27/17 11:11 09/27/17 11:11 09/27/17 11:11 General appearance: Present: no acute distress - Head Head Exam: Present: normal inspection, normocephalic - Neck Additional comments: Left JVD noted - Respiratory Additional comments: Stidorous respirations - -+ upper airway secretions - Cardiovascular Cardiovascular exam: Present: +S1, +S2 - GI/Abdominal Exam GI/Abdominal exam: Present: distended, soft additional comments: PEG in place - Extremities Exam Extremities exam: Present: normal capillary refill, normal inspection - Neurological Exam Additional comments: Patient minimally responsive. - Skin Skin exam: Present: dry, pallor, warm Internal Medicine - CN: Reslt - Labs CBC & Chem 7: 09/27/17 11:12 09/27/17 04:25 Labs: Short CBC 09/27/17 09/27/17 09/27/17 Range/Units 04:25 09:58 11:12 WBC 6.4 (4.3-11.1) K/mcL Hgb 7.2 L D 6.9 L 8.0 L (11.5-15.4) g/dL Hct 21.5 L 20.4 L 24.5 L (35.3-44.9) % Plt Count 237 (140-400) K/mcL Neutrophils # 6.0 (1.6-8.9) K/mcL BMP 09/27/17 04:25 Sodium 127 L Potassium 3.9 Chloride 97 L Carbon Dioxide 24 BUN 14 Creatinine 0.40 L Glucose 135 H Calcium 8.4 L Cardiac Enzymes 09/26/17 09/27/17 Range/Units 20:30 04:25 Troponin I 1.78 H* 1.46 H* (< 0.04) ng/mL - ABG Interpretation ABG results: ABG ABG pH 7.45 pH Units (7.32-7.45) 09/27/17 05:22 ABG pCO2 32 mmHg (35-45) L 09/27/17 05:22 ABG pO2 69 mmHg (85-104) L 09/27/17 05:22 ABG O2 Saturation 95 % (95-98) 09/27/17 05:22 PT/INR, D-dimer PT 11.5 Seconds (9.4-12.1) 09/27/17 04:25 - Impressions Impressions Chest X-Ray 09/27/17 11:27 IMPRESSION: Increased patchy airspace disease in the right upper lobe and hazy opacities at the lung bases. D/ / 09/27/2017 12:10:15 January Cassidy / cherry Interpreting Provider: January Cassidy Consult Discharge Plan - Plan Referrals: Marilee Nettles DO [Primary Care Provider] - Palliative Quality Palliative Quality: Screen for Code Status: Yes, Screen for Goals of Care: Yes, Screen for Pain: Yes, If Pain Regimen Started, Initiate Bowel Regimen: NA, Screen for Nausea/Vomitting: NA Code Status: 09/26/17 08:59 CODE [Resuscitation Status: Active] [RES] Routine Comment: Resuscitation Status: [id number] 09/27/17 11:44 CODE [Resuscitation Status: Active] [RES] Routine Comment: Resuscitation Status: DNR-Comfort Care
[2017-09-27] MEDS ORDERED: Clindamycin 600 MG/50 ML 600 MG/50 ML IV.SOLN IVPB SCH (16:00)
[2017-09-27] MEDS: *HR* LORazepam 2 MG/ML VIAL IVP PRN ×2 (19:58→23:32)
[2017-09-27] MEDS: *HR* FentaNYL (PF) 100 MCG/2 ML VIAL IVP PRN ×2 (19:59→23:31)
[2017-09-28] MEDS: *HR* LORazepam 2 MG/ML VIAL IVP PRN ×3 (01:56→08:11)
[2017-09-28] MEDS: *HR* FentaNYL (PF) 100 MCG/2 ML VIAL IVP PRN ×3 (02:02→09:19)
[2017-09-28] MEDS: Atropine Sulfate 1% 40 DROP/2 ML BOTTLE SL PRN ×2 (06:10→11:48)
[2017-09-28 07:39] VITALS: BP 107/66
[2017-09-28] MEDS ORDERED: Glycopyrrolate 0.2 MG/ML VIAL IVP PRN (09:22)
--- NOTE | 2017-09-28 09:45 | Palliative Progress Note ---
Date of Encounter: 09/28/17 Time of Encounter: 09:40 - Assessment and plan (1) Anxiety Current Visit: Yes Status: Acute Assessment and plan: lLorazepam has been helping, but states she is requiring it often. She appears to be struggling and anxious. Will scheduled Lorazepam every 2 hours and monitor (2) Copious oral secretions Current Visit: Yes Status: Acute Assessment and plan: Continue atropine/scopolamine - will add Robinul. (3) Dyspnea Current Visit: No Status: Acute Assessment and plan: Dyspneic and in respiratory distress this am. Fentanyl drip was d/c'd with transition off ICU. asking this to be restarted. Will restart Fentanyl at 100mcg/hour and titrate for comfort. continue bolus doses PRN. Qualifiers: Dyspnea type: unspecified Qualified Code(s): R06.00 - Dyspnea, unspecified (4) Counseling regarding advanced care planning and goals of care Current Visit: Yes Status: Acute Assessment and plan: Patient appears to be actively dying. very emotional at bedside. Provided support. I do not think she will survive long enough transition to hospice care. Will continue to provide comfort management. (5) Esophageal cancer Current Visit: Yes Status: Chronic Qualifiers: Malignant neoplasm of esophagus location: unspecified location Qualified Code(s): C15.9 - Malignant neoplasm of esophagus, unspecified (6) Nasopharyngeal cancer Current Visit: No Status: Chronic - Time Spent With Patient Total time spent is greater than 50% in coordination of care (as documented) at patient's floor/unit and/or counseling patient: 25 - 35 minutes - Subjective Interval history: Patient with respiratory distress, stridor, upper airway secretions. Still alert and can open eyes and assist some with positioning. at bedside very emotional. - Constitutional Vitals: Abnormal lab results RBC 2.38 M/mcL (3.82-4.97) L 09/27/17 04:25 Hgb 8.0 g/dL (11.5-15.4) L 09/27/17 11:12 Hct 24.5 % (35.3-44.9) L 09/27/17 11:12 RDW 14.6 % (11.5-14.5) H 09/27/17 04:25 Band Neutrophils % 24.0 % (0-4) H 09/27/17 04:25 Lymphocytes # 0.3 K/mcL (0.6-4.6) L 09/27/17 04:25 APTT 39.5 Seconds (26.0-36.0) H 09/27/17 04:25 ABG pCO2 32 mmHg (35-45) L 09/27/17 05:22 ABG pO2 69 mmHg (85-104) L 09/27/17 05:22 Sodium 127 mEq/L (136-145) L 09/27/17 04:25 Chloride 97 mEq/L (98-107) L 09/27/17 04:25 Creatinine 0.40 mg/dL (0.60-1.20) L 09/27/17 04:25 BUN/Creatinine Ratio 35 (6-26) H 09/27/17 04:25 Glucose 135 mg/dL (70-105) H 09/27/17 04:25 POC Glucose 134 (58-89) H 09/26/17 07:02 Calculated Osmolality 267 (280-300) L 09/27/17 04:25 Calcium 8.4 mg/dL (8.6-10.3) L 09/27/17 04:25 Troponin I 1.46 ng/mL (< 0.04) H* 09/27/17 04:25 General appearance: Present: mild distress - Respiratory Additional comments: Audible secretions/rhonchi throughout - Cardiovascular Cardiovascular exam: Present: +S1, +S2, tachycardia - GI/Abdominal GI/Abdominal exam: Present: normal bowel sounds, soft - Extremities Exam Extremities exam: Present: normal capillary refill, normal inspection - Neurological Exam Additional comments: Alert, can open eyes, shake head yes/no. - Skin Skin exam: Present: dry, pallor, warm Palliative Quality Palliative Quality: Screen for Code Status: Yes, Screen for Goals of Care: Yes, Screen for Pain: Yes, If Pain Regimen Started, Initiate Bowel Regimen: NA, Screen for Nausea/Vomitting: NA Code Status: 09/26/17 08:59 CODE [Resuscitation Status: Active] [RES] Routine Comment: Resuscitation Status: [id number] 09/27/17 11:44 CODE [Resuscitation Status: Active] [RES] Routine Comment: Resuscitation Status: DNR-Comfort Care - Labs CBC & Chem 7: 09/27/17 11:12 09/27/17 04:25 Labs: Laboratory Results - last 24 hr 09/27/17 09/27/17 09/27/17 09:58 11:12 11:12 Hgb 6.9 L 8.0 L Hct 20.4 L 24.5 L Blood Type A POSITIVE Antibody Screen NEGATIVE Crossmatch See Detail - Impressions Impressions Chest X-Ray 09/27/17 11:27 IMPRESSION: Increased patchy airspace disease in the right upper lobe and hazy opacities at the lung bases. D/ / 09/27/2017 12:10:15 January Cassidy / cherry Interpreting Provider: January Cassidy - ABG Interpretation ABG results: ABG ABG pH 7.45 pH Units (7.32-7.45) 09/27/17 05:22 ABG pCO2 32 mmHg (35-45) L 09/27/17 05:22 ABG pO2 69 mmHg (85-104) L 09/27/17 05:22 ABG O2 Saturation 95 % (95-98) 09/27/17 05:22 PT/INR, D-dimer PT 11.5 Seconds (9.4-12.1) 09/27/17 04:25 Consult Discharge Plan - Plan Referrals: Marilee Nettles DO [Primary Care Provider] -
[2017-09-28] MEDS: *HR* LORazepam 2 MG/ML VIAL IVP SCH ×7 (10:02→23:15)
[2017-09-28] MEDS: FentaNYL (PF) 1,000 MCG in 0.9 % Sodium Chloride 80 ML IVC SCH ×2 (10:02→18:32)
--- NOTE | 2017-09-28 14:25 | Event Note ---
Date of Encounter: 09/28/17 Time of Encounter: 14:25 Ms. 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 Initially diagnosed June 2017. 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 p16 negative. Prior therapy included induction Carboplatin/Paclitaxel/Cetuximab at [facility]. Current treatment plan included chemoradiation with weekly cisplatin initiated . She had a previous hospitalization for aspiration pneumonia and respiratory distress where she was intubated for about 24 hours and successfully weaned off ventilator and stabilized for discharge home. She most recently presented to [facility] with hypoxia and increased SOB. She was admitted on bipap however was able to be weaned off for some short time until she began to again experience respiratory distress and acute decrease in hemoglobin. She was placed on bipap for a time, oxygen levels continued to decrease and her work of breathing worsened. Patient's Donald was at bedside during this time and they ultimately decided to transition to comfort care only (DNRCC), expecting her to pass away during this hospitalization. Patient had made it clear during this hospitalization that she did not want to be intubated and did not want trach placement. Patient did stabilize and she was transitioned out of the ICU to palliative unit. Yesterday, she was in acute distress and required restarting of Fentanyl drip and increasing Lorazepam. She is planned to transition to general inpatient hospice for continued symptom management. Patients Donald is at bedside, patient currently appears comfortable and without signs of air hunger. Copious oral secretions have improved since last assessment, palliative care working with a number of medication for control including scopolamine patch, atropine drops and robinul PRN. Offered Donald support during this difficult time. Greatly appreciate the help of palliative team during remainder of patients stay. Ms. Velez is altered and did not respond to sound or light touch. Lung sounds decreased with upper airway noise. RRR, tachycardic. She does not appear anxious or agitated. Extremities warm, faint to absent pedal pulses.
--- NOTE | 2017-09-28 15:50 | Internal Med Progress Note ---
Date of Encounter: 09/28/17 Time of Encounter: 11:40 - Assessment and plan (1) Respiratory failure Current Visit: Yes Status: Acute Assessment and plan: Continue supplemental oxygen. Patient is currently on hospice care, plan is to transition to general inpatient hospice tomorrow depending on patient's condition. She is currently doing very poorly, in critical condition. Continue IV fentanyl drip for respiratory distress and agitation, per palliative care team. Supportive care. Qualifiers: Chronicity: acute Respiratory failure complication: hypoxia Qualified Code(s): J96.01 - Acute respiratory failure with hypoxia (2) Aspiration pneumonia Current Visit: Yes Status: Suspected Assessment and plan: Has been treated with IV antibiotics for possible pneumonia, suspected aspiration. Currently on hold, on palliative care. Qualifiers: Aspiration pneumonia type: unspecified Laterality: right Lung location: lower lobe of lung Qualified Code(s): J69.0 - Pneumonitis due to inhalation of food and vomit (3) Severe sepsis Current Visit: Yes Status: Acute (4) Anemia Current Visit: Yes Status: Acute Assessment and plan: Was started on anticoagulation with IV heparin drip for possible non-ST elevation RI, developed anemia, anticoagulation was subsequently held. Qualifiers: Anemia type: unspecified type Qualified Code(s): D64.9 - Anemia, unspecified (5) Copious oral secretions Current Visit: Yes Status: Acute Assessment and plan: Palliative care on board. Continue when necessary atropine, glycopyrrolate, scopolamine patch. (6) Elevated troponin Current Visit: Yes Status: Acute Assessment and plan: Suspected non-ST elevation RI, troponins trended down. Cardiology has been consulted by ICU team, patient was then transitioned to hospice care and cardiology signed off. 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 Lethargic and obtunded, lying in bed. Plan of care discussed with patient's at bedside. - Constitutional Vitals: Temp Pulse Resp BP Pulse Ox 97.8 F 119 19 107/66 85 09/28/17 07:35 09/28/17 07:35 09/28/17 13:49 09/28/17 07:35 09/28/17 07:57 General appearance: Present: A&O X 0. Absent: answers questions appropriately - Respiratory Respiratory exam: Present: CTAB (Coarse breath sounds bilaterally. Copious upper airway secretions, gurgling. ). Absent: accessory muscle use, rales, rhonchi, wheezes - Cardiovascular Cardiovascular exam: Present: RRR, +S1, +S2, tachycardia. Absent: diastolic murmur, gallop, rubs, systolic murmur - Extremities Exam Extremities exam: Present: warm, radial pulses palpable and symmetrical. Absent : calf tenderness, cyanotic, pedal edema - Neurological Exam Neurological exam: Present: altered (Obtunded. Further exam cannot be completed. ). Absent: pronater drift, facial droop, speech deficit Internal Medicine: Result - Labs CBC & Chem 7: 09/27/17 11:12 09/27/17 04:25 - ABG Interpretation ABG results: ABG ABG pH 7.45 pH Units (7.32-7.45) 09/27/17 05:22 ABG pCO2 32 mmHg (35-45) L 09/27/17 05:22 ABG pO2 69 mmHg (85-104) L 09/27/17 05:22 ABG O2 Saturation 95 % (95-98) 09/27/17 05:22 PT/INR, D-dimer PT 11.5 Seconds (9.4-12.1) 09/27/17 04:25 Consult Discharge Plan - Plan Referrals: Marilee Nettles DO [Primary Care Provider] -
--- NOTE | 2017-09-28 20:24 | Electrocardiograph Report ---
[address] [address] Test Date: 2017-09-26 Pat Name: Crystal Martinez Department: 102 Room: 2A45 Gender: F Human Resources Training Manager: : 1955 Requested By: Asa Uribe Order Number: [id number] Reading MD: Austin Duffy MD Measurements Intervals [place] Rate: 123 P: 79 WV: 136 QRS: 7 QRSD: 70 T: 70 QT: 317 QTc: 390 Interpretive Statements SINUS TACHYCARDIA WITH OCCASIONAL VENTRICULAR PREMATURE COMPLEXES BASELINE ARTIFACT Electronically Signed On 09-28-2017 20:22:51 EST by Austin Duffy MD
[2017-09-29] MEDS: *HR* LORazepam 2 MG/ML VIAL IVP SCH ×6 (01:19→10:15)
[2017-09-29] MEDS: FentaNYL (PF) 1,000 MCG in 0.9 % Sodium Chloride 80 ML IVC SCH (04:35)
[2017-09-29] MEDS: *HR* FentaNYL (PF) 100 MCG/2 ML VIAL IVP PRN (10:23)
--- NOTE | 2017-09-29 10:29 | Discharge Summary ---
Date of Encounter: 09/29/17 Time of Encounter: 10:28 - Discharge Diagnosis (1) Respiratory failure Priority: Primary Status: Acute Qualifiers: Chronicity: acute Respiratory failure complication: hypoxia Qualified Code(s): J96.01 - Acute respiratory failure with hypoxia (2) Aspiration pneumonia Priority: Primary Status: Suspected Qualifiers: Aspiration pneumonia type: unspecified Laterality: right Lung location: lower lobe of lung Qualified Code(s): J69.0 - Pneumonitis due to inhalation of food and vomit (3) Severe sepsis Priority: Primary Status: Acute (4) Anemia Priority: Primary Status: Acute Qualifiers: Anemia type: unspecified type Qualified Code(s): D64.9 - Anemia, unspecified (5) Copious oral secretions Priority: Primary Status: Acute (6) Elevated troponin Priority: Primary Status: Acute (7) Oropharyngeal cancer Priority: Secondary Status: Chronic (8) Esophageal cancer Priority: Secondary Status: Chronic Qualifiers: Malignant neoplasm of esophagus location: unspecified location Qualified Code(s): C15.9 - Malignant neoplasm of esophagus, unspecified (9) COPD (chronic obstructive pulmonary disease) Priority: Secondary Status: Chronic Qualifiers: COPD type: unspecified COPD Qualified Code(s): J44.9 - Chronic obstructive pulmonary disease, unspecified - Discharge Medications Home Medications: Albuterol Sulfate [Albuterol Inhaler] 2 puff IH Q4HR PRN 07/02/17 [History] Acetaminophen [Tylenol] 1,000 mg PO Q6HR PRN 09/08/17 [History] Fluticasone/Salmeterol [Advair Hfa 45-21 Mcg Inhaler] 2 puff IH BID PRN #1 inh 09/08/17 [Rx] Ondansetron [Zofran] 8 mg PO Q8HR PRN 09/08/17 [History] Potassium Chloride Elixir [Potassium Chloride] 20 meq GTUBE DAILY 09/08/17 [ History] Prochlorperazine Maleate [Compazine] 10 mg PO Q8HR PRN 09/08/17 [History] Escitalopram [Lexapro] 20 mg PO DAILY 09/09/17 [History] Zolpidem [Ambien] 5 - 10 mg PO HS PRN 09/09/17 [History] Albuterol Neb [Proventil Neb] 2.5 mg IH Q4HR #30 vial.neb 09/24/17 [Rx] amLODIPine [Norvasc] 5 mg PO DAILY 09/26/17 [History] Allergies/Adverse Reactions: 3 Allergy/AdvReac Type Severity Reaction Status Date / Time Penicillins Allergy Rash Verified 09/20/17 10:48 Sulfa (Sulfonamide Allergy Rash Verified 09/20/17 10:48 Antibiotics) Date of admission: 09/26/17 06:28 Primary care physician: John Collazo Consults: 09/27/17 14:25 Consult to Palliative Care [CONS] Stat Comment: Consulting Provider: [facility] [place] Reason for Consult: Patient made into DNR-CC Call Completed: No Discharging clinician: Mery Ferris Anticipated date of discharge: 09/29/17 - Patient Status Disposition: Hospice - Medical Facility Condition: Critical Functional capacity at discharge: bed bound Overall status at discharge: patient is not back to baseline - Discharge Instructions Follow Up With: Marilee Nettles DO [Primary Care Provider] - Hospital course: Ms. Martinez is a 62 year old female with h/o- esophageal cancer and nasopharyngeal carcinoma, with poor prognosis, who was initially admitted to ICU with worsening shortness of breath. Patient refused endotracheal intubation at admission. She was noted to have severe sepsis with tachycardia, tachypnea, hypotension and lactic acidosis. She was started on broad-spectrum IV antibiotics along with supportive care with supplemental oxygen and BiPAP support. Patient continued to do poorly along with worsening mental status. Due to her extensive cancer and very poor functional status, Palliative care was consulted and patient's agreed to change patient to inpatient hospice/Palliative care. Patient is currently being discharged from hospitalist service and being admitted to general inpatient hospice. - Time Spent with Patient Total time spent providing and/or coordinating discharge services: Greater than 30 minutes (40 min) - Constitutional Vitals: Temp Pulse Resp BP Pulse Ox 97.8 F 119 19 107/66 85 09/28/17 07:35 09/28/17 07:35 09/28/17 13:49 09/28/17 07:35 09/28/17 07:57 General appearance: Present: A&O X 0. Absent: answers questions appropriately - Respiratory Respiratory exam: Present: CTAB (slow, deep breathing; decreased airway secretions). Absent: accessory muscle use, rales, rhonchi, wheezes
[2017-09-30] MEDS ORDERED: Scopolamine Patch 1.5 MG PATCH.TD72 TD SCH (15:30)
== END 2017-09-29 10:46 | disposition hospice, inpatient (51) | DRG 871 ==
LOC: EMEROO 02:59 → ICNU 06:28 → SUATTDRO 06:28 → ICNU 07:06 → 2ANU 09-27 19:13
PROVIDERS: ADMIT Pediatrics; ATTEND Internal Medicine

== ENCOUNTER 2017-09-29 08:38 | Inpatient (IN) ==
[2017-09-29] MEDS ORDERED: Bisacodyl 10 MG RECTAL SUPPOSITORY RC PRN (08:40)
[2017-09-29] MEDS ORDERED: Atropine Sulfate 1% 40 DROP/2 ML BOTTLE SL PRN (08:40)
[2017-09-29] MEDS ORDERED: *HR* FentaNYL (PF) 100 MCG/2 ML VIAL IVP PRN (08:43)
[2017-09-29] MEDS ORDERED: Scopolamine Patch 1.5 MG PATCH.TD72 TD SCH (08:45)
--- NOTE | 2017-09-29 08:47 | Palliative - Consult Note ---
Date of Encounter: 09/29/17 Time of Encounter: 08:45 - Assessment and Plan (1) Dyspnea Status: Acute Assessment and plan: Was in distress yesterday am - Fentanyl continuous Iv infusion began and she appears much more comfortable this am. Has PRN boluses if needed but has not required last since yesterday am. Can titrate drip if needed. Qualifiers: Dyspnea type: unspecified Qualified Code(s): R06.00 - Dyspnea, unspecified (2) Anxiety Status: Acute Assessment and plan: Continue with scheduled IV Lorazepam which states has been very helpful for her (3) Copious oral secretions Status: Acute Assessment and plan: Scopolamine patch/Atropine drops/Robinul PRN. (4) Counseling regarding advanced care planning and goals of care Status: Acute Assessment and plan: Will admit to general in hospice for continued symptom control. (5) Esophageal cancer Status: Chronic Qualifiers: Malignant neoplasm of esophagus location: unspecified location Qualified Code(s): C15.9 - Malignant neoplasm of esophagus, unspecified (6) Oropharyngeal cancer Status: Chronic (7) Respiratory failure Status: Acute Qualifiers: Chronicity: acute Respiratory failure complication: hypoxia Qualified Code(s): J96.01 - Acute respiratory failure with hypoxia (8) Aspiration pneumonia Status: Suspected Qualifiers: Aspiration pneumonia type: unspecified Laterality: right Lung location: lower lobe of lung Qualified Code(s): J69.0 - Pneumonitis due to inhalation of food and vomit Palliative-CN HPI - Data of Consult Requesting Physician: Nelson Carlos MD - Consult Narrative History of present illness: Ms. Martinez is a 62 year old female known to the palliative care team from a previous admission, who was admitted with increasing shortness of breath. 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 She had recent admission for aspiration pneumonia, and was intubated during that stay, but did extubate successfully and she was stable and discharged home with . I had actually saw her during that visit, and had goals of care discussion, no decisions made during that visit - pt and wanted to discuss at home. This visit, she was admitted to ICU , originally pt/ ok with intubation, however, discussions were held over weekend with granulator tender, and pt declined intubation. Code status at that time was DNR/DNI per patient request. As of this am, she was alert and watching tv, moving herself around in bed, and later am, had distress, hemoglobin dropped, and increased resp distress. She was placed on bipap for a time, and oxygen levels continued to decrease. Patient's Donald at bedside. They ultimately decided to transition to comfort care only (DNRCC) , and at bedside expecting her to pass away during this hospitalization. Patient did stabilize and transitioned out of the ICU to palliative unit. Yesterday, she was in acute distress and required restarting of Fentanyl drip and increasing Lorazepam. D/W yesterday - will transition to general inpt hospice today for continue symptom management. CC: Nelson Carlos MD Past Med Surg Social Fam HX - Past Medical History Medical history: cancer, CVA, hypertension Psychiatric history: no psych history - Past Surgical History Surgical History: other - Social History Smoking Status: Former smoker Smokeless Tobacco Status: No Alcohol use: none Drug use: none Medications and Allergies Albuterol Sulfate [Albuterol Inhaler] 2 puff IH Q4HR PRN 07/02/17 [History] Acetaminophen [Tylenol] 1,000 mg PO Q6HR PRN 09/08/17 [History] Fluticasone/Salmeterol [Advair Hfa 45-21 Mcg Inhaler] 2 puff IH BID PRN #1 inh 09/08/17 [Rx] Ondansetron [Zofran] 8 mg PO Q8HR PRN 09/08/17 [History] Potassium Chloride Elixir [Potassium Chloride] 20 meq GTUBE DAILY 09/08/17 [ History] Prochlorperazine Maleate [Compazine] 10 mg PO Q8HR PRN 09/08/17 [History] Escitalopram [Lexapro] 20 mg PO DAILY 09/09/17 [History] Zolpidem [Ambien] 5 - 10 mg PO HS PRN 09/09/17 [History] Albuterol Neb [Proventil Neb] 2.5 mg IH Q4HR #30 vial.neb 09/24/17 [Rx] amLODIPine [Norvasc] 5 mg PO DAILY 09/26/17 [History] 3 Allergy/AdvReac Type Severity Reaction Status Date / Time Penicillins Allergy Rash Verified 09/20/17 10:48 Sulfa (Sulfonamide Allergy Rash Verified 09/20/17 10:48 Antibiotics) ROS unobtainable: due to mental status Palliative Care-Exam - Constitutional General appearance: Present: no acute distress - Head Head Exam: Present: normal inspection, normocephalic - Respiratory Additional comments: Stridorous respirations. rate approx 16-18/min. - Cardiovascular Cardiovascular exam: Present: +S1, +S2, tachycardia - GI/Abdominal Exam GI/Abdominal exam: Present: soft additional comments: PEG intact - Extremities Exam Extremities exam: Present: normal capillary refill, normal inspection - Neurological Exam Additional comments: Does not respond to sound or light touch this am. - Skin Skin exam: Present: dry, pallor, warm Palliative Quality Palliative Quality: Screen for Code Status: Yes, Screen for Goals of Care: Yes, Screen for Pain: Yes, If Pain Regimen Started, Initiate Bowel Regimen: Yes, Screen for Nausea/Vomitting: Yes Code Status: 09/29/17 08:40 Resuscitation Status: Active [RES] Routine Comment: Resuscitation Status: DNR-Comfort Care
--- NOTE | 2017-09-29 09:13 | Pallative History & Physical ---
Date of Encounter: 09/29/17 Time of Encounter: 08:35 Assessment and Plan (1) Anxiety Status: Acute Well-controlled on current medications continue current medications continue to monitor (2) Copious oral secretions Status: Acute Robinul has been more effective for this patient and other medications continue to use current medications continue to monitor (3) Counseling regarding advanced care planning and goals of care Status: Acute DNR CCA, transition to general inpatient hospice today. Cirrhosis esophageal soft palate cancer. Patient requires general inpatient hospice due to the continuous need for a fentanyl drip. (4) Esophageal cancer Status: Chronic This will be her hospice diagnosis, no further treatment is being entertained. Qualifiers: Malignant neoplasm of esophagus location: unspecified location Qualified Code(s): C15.9 - Malignant neoplasm of esophagus, unspecified (5) Dyspnea Status: Acute 10 units oxygen therapy continue medications for dyspnea. Qualifiers: Dyspnea type: unspecified Qualified Code(s): R06.00 - Dyspnea, unspecified Internal Medicine - H&P: HPI Admitted From: Intrahospital Transfer Plans for Post Hospital Care: Hospice - Home History of present illness: Ms. Martinez is a 62 year old female Patient was originally admitted for increasing shortness of breath has a history of esophageal and soft palate tumor. Has been admitted repeatedly aspiration pneumonias requiring intubation. He was most recently admitted and i the family and patient declined intubation. Patient was being maintained with BiPAP, however the patient was not able to wean off it well as was made to transition to comfort care only and stop the BiPAP. This point she is being transitioned to comfort care to inpatient hospice service for shortness of breath. Is requiring a fentanyl drip to remain comfortable. And therefore is requiring general inpatient level care. Past Med Surg Social Fam HX - Past Medical History Medical history: cancer, CVA, hypertension Psychiatric history: no psych history - Past Surgical History Surgical History: other - Social History Smoking Status: Former smoker Smokeless Tobacco Status: No Alcohol use: none Drug use: none Internal Medicine - H&P: Meds Albuterol Sulfate [Albuterol Inhaler] 2 puff IH Q4HR PRN 07/02/17 [History] Acetaminophen [Tylenol] 1,000 mg PO Q6HR PRN 09/08/17 [History] Fluticasone/Salmeterol [Advair Hfa 45-21 Mcg Inhaler] 2 puff IH BID PRN #1 inh 09/08/17 [Rx] Ondansetron [Zofran] 8 mg PO Q8HR PRN 09/08/17 [History] Potassium Chloride Elixir [Potassium Chloride] 20 meq GTUBE DAILY 09/08/17 [ History] Prochlorperazine Maleate [Compazine] 10 mg PO Q8HR PRN 09/08/17 [History] Escitalopram [Lexapro] 20 mg PO DAILY 09/09/17 [History] Zolpidem [Ambien] 5 - 10 mg PO HS PRN 09/09/17 [History] Albuterol Neb [Proventil Neb] 2.5 mg IH Q4HR #30 vial.neb 09/24/17 [Rx] amLODIPine [Norvasc] 5 mg PO DAILY 09/26/17 [History] 3 Allergy/AdvReac Type Severity Reaction Status Date / Time Penicillins Allergy Rash Verified 09/20/17 10:48 Sulfa (Sulfonamide Allergy Rash Verified 09/20/17 10:48 Antibiotics) ROS unobtainable: due to mental status Palliative Care-Exam - Constitutional General appearance: Present: no acute distress - Head Head Exam: Present: atraumatic, normal inspection - Eye Eye exam: Present: normal appearance - Respiratory Respiratory exam: Present: decreased breath sounds (Upper airway noise right greater than left) - Cardiovascular Cardiovascular exam: Present: RRR, tachycardia - GI/Abdominal Exam GI/Abdominal exam: Present: diminished bowel sounds, soft. Absent: tenderness - Extremities Exam Extremities exam: Present: normal inspection (Warm). Absent: pedal edema, tenderness - Neurological Exam Neurological exam: Present: altered - Psychiatric Psychiatric exam: Absent: agitated, anxious - Skin Skin exam: Present: dry, warm Palliative Quality Palliative Quality: Screen for Code Status: Yes, Screen for Goals of Care: Yes, Screen for Pain: Yes, If Pain Regimen Started, Initiate Bowel Regimen: Yes, Screen for Nausea/Vomitting: Yes Code Status: 09/29/17 08:40 Resuscitation Status: Active [RES] Routine Comment: Resuscitation Status: DNR-Comfort Care
--- NOTE | 2017-09-29 09:20 | Event Note ---
Date of Encounter: 09/29/17 Time of Encounter: 09:19 Hospice medical dir certification of terminal illness: Hospice benefit. Start: 09/29/2017 Hospice benefit. In: +90 days Palliative performance scale: 10-20% History: Should not with a history of esophageal and soft palate cancer with a history of repeated aspiration pneumonia pneumonias requiring intubation. She has now opted for for care only. No further aggressive treatment will be done. In no further treatment of the aspiration pneumonias will be done either. Therefore I believe that These findings support a life expectancy of 6 months or less. I attest that I have compose the above narrative based on my review of the patient's medical records, and or on my examination of the patient. Nelson Carlos M.D. Associate medical dir. [facility]
[2017-09-29] MEDS: FentaNYL (PF) 1,000 MCG in 0.9 % Sodium Chloride 80 ML IVC SCH ×2 (11:14→16:32)
[2017-09-29] MEDS: *HR* LORazepam 2 MG/ML VIAL IVP SCH ×7 (11:14→22:11)
--- NOTE | 2017-09-29 18:51 | Event Note ---
Date of Encounter: 09/29/17 Time of Encounter: 18:45 I came by to see Srinivasan as well as her today. She is currently resting comfortably with agonal breathing. She appears to be actively dying. Her was at her bedside. Family is in town as well. He is quite pleased with level of comfort currently. He requests no special needs as pleased by the hospice care she is receiving in the hospital. I offered words encouragement. I instructed him to call me if for any needs or concerns. I appreciate the care the palliative care team is providing to this unfortunate woman. If I can be of any assistance, do not hesitate to call my cell phone at [phone]
[2017-09-30] MEDS: *HR* LORazepam 2 MG/ML VIAL IVP SCH ×12 (00:19→23:06)
[2017-09-30] MEDS: FentaNYL (PF) 1,000 MCG in 0.9 % Sodium Chloride 80 ML IVC SCH ×3 (03:31→21:07)
[2017-09-30] MEDS ORDERED: Scopolamine Patch 1.5 MG PATCH.TD72 TD SCH (08:45)
[2017-09-30] MEDS ORDERED: Acetaminophen 650 MG RECTAL SUPP RC PRN (08:50)
--- NOTE | 2017-09-30 08:53 | Palliative Progress Note ---
Date of Encounter: 09/30/17 Time of Encounter: 08:45 - Assessment and plan (1) Cancer associated pain Current Visit: Yes Status: Acute Assessment and plan: Appears somewhat restless this am. Will increase Fentanyl drip to 125mcg/hr (2) Dyspnea Current Visit: No Status: Acute Assessment and plan: Continue Fentanyl drip with boluses as needed. Qualifiers: Dyspnea type: unspecified Qualified Code(s): R06.00 - Dyspnea, unspecified (3) Anxiety Current Visit: No Status: Acute Assessment and plan: Continue scheduled Lorazepam (4) Copious oral secretions Current Visit: No Status: Acute Assessment and plan: Continue scop patch, atropine drops, PRN Robinul if needed. Upper airway secretions well controlled at present (5) Counseling regarding advanced care planning and goals of care Current Visit: No Status: Acute (6) Esophageal cancer Current Visit: No Status: Chronic Qualifiers: Malignant neoplasm of esophagus location: unspecified location Qualified Code(s): C15.9 - Malignant neoplasm of esophagus, unspecified (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 (8) Respiratory failure Current Visit: No Status: Acute Qualifiers: Chronicity: acute Respiratory failure complication: hypoxia Qualified Code(s): J96.01 - Acute respiratory failure with hypoxia (9) Aspiration pneumonia Current Visit: No Status: Suspected Qualifiers: Aspiration pneumonia type: unspecified Laterality: right Lung location: lower lobe of lung Qualified Code(s): J69.0 - Pneumonitis due to inhalation of food and vomit - Time Spent With Patient Total time spent is greater than 50% in coordination of care (as documented) at patient's floor/unit and/or counseling patient: 25 - 35 minutes - Subjective Interval history: Patient with fever, increased tachycardia, Sao2 87%. I sat with her a while when was out. She was beginning to appear uncomfortable, raising up shoulders. Will increase Fentanyl drip today. - Constitutional General appearance: Present: no acute distress - Respiratory Respiratory exam: Present: decreased breath sounds, CTAB Additional comments: Breath sounds course - Cardiovascular Cardiovascular exam: Present: +S1, +S2, tachycardia - GI/Abdominal GI/Abdominal exam: Present: soft Additional comments: PEG intact - Additional comments: Calrk in place with yellow urine - Extremities Exam Extremities exam: Present: normal capillary refill, normal inspection - Neurological Exam Additional comments: Opens eyes occasionally. No verbal response. - Skin Skin exam: Present: dry, pallor, warm Palliative Quality Palliative Quality: Screen for Code Status: Yes, Screen for Goals of Care: Yes, Screen for Pain: Yes, If Pain Regimen Started, Initiate Bowel Regimen: Yes, Screen for Nausea/Vomitting: Yes Code Status: 09/29/17 08:40 Resuscitation Status: Active [RES] Routine Comment: Resuscitation Status: DNR-Comfort Care Consult Discharge Plan - Plan Referrals: Marilee Nettles DO [Primary Care Provider] - (GIP Patient, no follow up needed)
[2017-10-01] MEDS: *HR* LORazepam 2 MG/ML VIAL IVP SCH ×12 (00:55→22:13)
[2017-10-01] MEDS: FentaNYL (PF) 1,000 MCG in 0.9 % Sodium Chloride 80 ML IVC SCH ×2 (05:38→14:34)
--- NOTE | 2017-10-01 08:57 | Palliative Progress Note ---
Date of Encounter: 10/01/17 Time of Encounter: 08:45 - Assessment and plan (1) Anxiety Current Visit: No Status: Acute Assessment and plan: Well-controlled on current medications continue current medications continue to monitor No changes today. (2) Copious oral secretions Current Visit: No Status: Acute Assessment and plan: Robinul has been more effective for this patient and other medications continue to use current medications continue to monitor No changes today. (3) Counseling regarding advanced care planning and goals of care Current Visit: No Status: Acute Assessment and plan: DNR CCA, transition to general inpatient hospice today. esophageal soft palate cancer. Patient requires general inpatient hospice due to the continuous need for a fentanyl drip. No changes today. (4) Esophageal cancer Current Visit: No Status: Chronic Assessment and plan: This will be her hospice diagnosis, no further treatment is being entertained. No changes today. Qualifiers: Malignant neoplasm of esophagus location: unspecified location Qualified Code(s): C15.9 - Malignant neoplasm of esophagus, unspecified (5) Dyspnea Current Visit: No Status: Acute Assessment and plan: continue oxygen therapy continue medications for dyspnea. No changes today. Qualifiers: Dyspnea type: unspecified Qualified Code(s): R06.00 - Dyspnea, unspecified - Time Spent With Patient Total time spent is greater than 50% in coordination of care (as documented) at patient's floor/unit and/or counseling patient: - Subjective Interval history: Stable on drips. Patient is not responsive to voice - Constitutional General appearance: Present: no acute distress - Head Head exam: Present: atraumatic, normal inspection - Eye Eye exam: Present: normal appearance - Respiratory Respiratory exam: Present: decreased breath sounds (almost guppy like ) - Cardiovascular Cardiovascular exam: Present: RRR - GI/Abdominal GI/Abdominal exam: Present: hypoactive bowel sounds, soft. Absent: tenderness - Extremities Exam Extremities exam: Present: normal inspection. Absent: pedal edema, tenderness - Neurological Exam Neurological exam: Present: altered - Psychiatric Psychiatric exam: Absent: agitated, anxious - Skin Skin exam: Present: dry, warm Palliative Quality Palliative Quality: Screen for Code Status: Yes, Screen for Goals of Care: Yes, Screen for Pain: Yes, If Pain Regimen Started, Initiate Bowel Regimen: Yes, Screen for Nausea/Vomitting: Yes Code Status: 09/29/17 08:40 Resuscitation Status: Active [RES] Routine Comment: Resuscitation Status: DNR-Comfort Care Consult Discharge Plan - Plan Referrals: Marilee Nettles DO [Primary Care Provider] - (GIP Patient, no follow up needed)
[2017-10-01 19:06] VITALS: BP 76/48
[2017-10-02] MEDS: *HR* LORazepam 2 MG/ML VIAL IVP SCH ×6 (00:02→10:25)
[2017-10-02] MEDS: FentaNYL (PF) 1,000 MCG in 0.9 % Sodium Chloride 80 ML IVC SCH ×2 (00:06→07:49)
--- NOTE | 2017-10-02 10:14 | Palliative Progress Note ---
Date of Encounter: 10/02/17 Time of Encounter: 09:00 - Assessment and plan (1) Cancer associated pain Current Visit: Yes Status: Acute Assessment and plan: Continue Fentanyl drip with boluses as needed. Currently at 125mcg/hr (2) Dyspnea Current Visit: No Status: Acute Qualifiers: Dyspnea type: unspecified Qualified Code(s): R06.00 - Dyspnea, unspecified (3) Anxiety Current Visit: No Status: Acute Assessment and plan: Continue Lorazepam as ordered (4) Copious oral secretions Current Visit: No Status: Acute (5) Counseling regarding advanced care planning and goals of care Current Visit: No Status: Acute Assessment and plan: Actively dying - pt most likely will pass next 24 hours (6) Esophageal cancer Current Visit: No Status: Chronic Qualifiers: Malignant neoplasm of esophagus location: unspecified location Qualified Code(s): C15.9 - Malignant neoplasm of esophagus, unspecified (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 (8) Respiratory failure Current Visit: No Status: Acute Qualifiers: Chronicity: acute Respiratory failure complication: hypoxia Qualified Code(s): J96.01 - Acute respiratory failure with hypoxia (9) Aspiration pneumonia Current Visit: No Status: Suspected Qualifiers: Aspiration pneumonia type: unspecified Laterality: right Lung location: lower lobe of lung Qualified Code(s): J69.0 - Pneumonitis due to inhalation of food and vomit - Time Spent With Patient Total time spent is greater than 50% in coordination of care (as documented) at patient's floor/unit and/or counseling patient: - Subjective Interval history: Patient with shallow irreg respirations. Mottling noted to lower extremities, hands dusky. Last b/p yesterday evening 78/40. at bedside and aware of changes. - Constitutional General appearance: Present: no acute distress - Respiratory Additional comments: Shallow and irreg resp. Lungs CTA - Cardiovascular Cardiovascular exam: Present: +S1, +S2, tachycardia - GI/Abdominal GI/Abdominal exam: Present: normal bowel sounds, soft Additional comments: PEG intact - Extremities Exam Additional comments: Mottling noted to bilateral lower extremities - Neurological Exam Additional comments: Unresponsive - Skin Skin exam: Present: dry, pallor Palliative Quality Palliative Quality: Screen for Code Status: Yes, Screen for Goals of Care: Yes, Screen for Pain: Yes, If Pain Regimen Started, Initiate Bowel Regimen: Yes, Screen for Nausea/Vomitting: Yes Code Status: 09/29/17 08:40 Resuscitation Status: Active [RES] Routine Comment: Resuscitation Status: DNR-Comfort Care Consult Discharge Plan - Plan Referrals: Marilee Nettles DO [Primary Care Provider] - (GIP Patient, no follow up needed)
--- NOTE | 2017-10-03 09:19 | Death Note ---
Discharge Sum: Summary - Date and Time Date of admission: 09/29/17 10:48 Date of : 10/02/17 Time of : 11:18 - Summary Details: Patient was admitted for general inpatient hospice care for intense symptom management for Esophageal/soft palate cancer. She required continue Fentanyl infusion for comfort and frequent iV Lorazepam. She peacefully on at 1118 with at bedside. - Additional Data Confirmation of as documented by pronouncing clinician: no pulse, no respirations, no heart sounds Family: at bedside Attending/PCP notified?: Yes Attending physician: Nelson Carlos MD Hospice patient?: Yes Discharge Sum: Diag - PCOD Probable Cause of : Respiratory arrest Discharge Sum: Prov - Provider Primary care physician: John Collazo Admitting clinician: Nelson Carlos Consults: 09/29/17 08:41 Consult to Palliative Care [CONS] Routine Comment: Consulting Provider: Palliative Care Melia Reason for Consult: GIP Call Completed: No
== END 2017-10-02 14:02 | disposition expired | DRG 374 ==
LOC: 2ANU 10:48
PROVIDERS: ADMIT Family Medicine Hospice and Palliative Medicine; ATTEND Family Medicine Hospice and Palliative Medicine